=== PATIENT | female | born 1930 | race Caucasian/White ===

== ENCOUNTER 2017-12-20 09:33 | Emergency (ER) | payer OTHER ==
--- NOTE | 2017-12-20 10:46 | RAD REPORT ---
EXAM DESCRIPTION: RAD - Chest Pa And Lat (2 Views) - 12/20/2017 10:29 am CLINICAL HISTORY: Chest pain. COMPARISON: November 2016. FINDINGS: Elevation of the right hemidiaphragm is unchanged. The lungs appear clear of acute infiltrate. The heart is normal in size. Old humeral fractures are noted. 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 Considerable kyphosis is p resent
--- NOTE | 2017-12-20 10:46 | RAD REPORT ---
EXAM DESCRIPTION: RAD - Humerus Right - 12/20/2017 10:29 am CLINICAL HISTORY: Right arm pain status post fall FINDINGS: No acute fracture is seen. An old proximal humeral fracture is noted. The bones are osteo porotic
--- NOTE | 2017-12-20 10:54 | ER ---
Nurse's Notes [facility] Name: Alessia Coombs Age: 87 yrs Sex: Female : 1930 Arrival Date: 12/20/2017 Time: 09:36 Bed 18 Private MD: Anand Jennings H Diagnosis: Chest Wall Contusion Presentation: 12/20 09:51 Presenting complaint: Patient states: i fell 2 weeks ago at home, hurt my back and R hj shoulder, i feel good but i decided last night to come and have myself checked; denies htting head and LOC;. Transition of care: patient was not received from another setting of care. Onset of symptoms was December 20, 2017. Care prior to arrival: None. 09:51 Method Of Arrival: Ambulatory 09:51 Acuity: LAURYN 4 hj Triage Assessment: 09:54 General: Appears in no apparent distress. uncomfortable, Behavior is calm, cooperative, hj appropriate for age. Pain: Complains of pain in anterior aspect of right shoulder. EENT: No signs and/or symptoms were reported regarding the EENT system. Neuro: Level of Consciousness is awake, alert, obeys commands, Oriented to person, place, time, situation. Cardiovascular: Capillary refill < 3 seconds Patient's skin is warm and dry. Respiratory: Airway is patent Respiratory effort is even, unlabored, Respiratory pattern is regular, symmetrical. GI: No signs and/or symptoms were reported involving the gastrointestinal system. : No signs and/or symptoms were reported regarding the genitourinary system. Derm: No signs and/or symptoms reported regarding the dermatologic system. Musculoskeletal: Reports pain in anterior aspect of right shoulder R lower rib cage. Historical: - Allergies: 09:53 NKDA; hj - Home Meds: 09:53 acetaminophen-codeine 300-30 mg Oral tab 1 tab every 4 hours [Active]; Amitriptyline 20 hj mg, two tabs at night Oral [Active]; citalopram 40 mg tab 1 tab once daily [Active]; Clonazepam Oral as needed [Active]; - PMHx: 09:53 Anxiety; Depression; hj - PSHx: 09:53 Knee surgery; hj - Immunization history:: Adult Immunizations up to date. - Social history:: Smoking status: Patient/guardian denies using tobacco, Patient/guardian denies using alcohol. - Family history:: not pertinent. - Hospitalizations: : No recent hospitalization is reported. Screenin:55 Abuse screen: Denies threats or abuse. Denies injuries from another. Nutritional hj screening: No deficits noted. Tuberculosis screening: No symptoms or risk factors identified. Fall Risk Fall in past 12 months (25 points). Assessment: 09:56 Reassessment: see triage for assessment;. hj 10:55 Reassessment: for D/C; negative acute findings;. hj Vital Signs: 09:56 BP 157 / 80; Pulse 73; Resp 18; Temp 98.1(TE); Pulse Ox 98% on R/A; Weight 54.43 kg; hj Height 5 ft. 3 in. (160.02 cm); Pain 6/10; 10:59 BP 150 / 78; Pulse 72; Resp 18; Pulse Ox 100% on R/A; hj 09:56 Body Mass Index 21.26 (54.43 kg, 160.02 cm) hj ED Course: 09:36 Patient arrived in ED. rg4 09:37 Anand Jennings DO is Private Physician. rg4 09:40 Gustavo Antunez, RN is Primary Nurse. hj 09:45 Salvatore Oconnor MD is Attending Physician. rn 09:52 Triage completed. hj 09:55 Arm band placed on right wrist. hj 09:55 Patient has correct armband on for positive identification. Bed in low position. Call hj light in reach. Side rails up X2. 10:21 Urine Dipstick--Ancillary (enter results) Sent. mh5 10:26 X-ray completed. Patient tolerated procedure well. Patient moved back from radiology. jb2 10:26 XRAY Chest Pa And Lat (2 Views) In Process Unspecified. EDMS 10:26 XRAY Humerus RIGHT In Process Unspecified. EDMS 10:53 Anand Jennings DO is Referral Physician. rn 10:59 No provider procedures requiring assistance completed. Patient did not have IV access hj during this emergency room visit. Administered Medications: No medications were administered Outcome: 10:54 Discharge ordered by MD. rn 10:59 Discharged to home ambulatory. hj 10:59 Condition: stable 10:59 Discharge instructions given to patient, Instructed on discharge instructions, follow up and referral plans. Demonstrated understanding of instructions, follow-up care. 11:21 Patient left the ED. hj Signatures: Dispatcher [employer] EDLopez Mahan Roman, MD MD rn Joaquin, Henry, RN RN hj Garcia, Rubi rg Dedra Bravo [facility]
--- NOTE | 2017-12-20 10:54 | EDPHYS ---
Physician Documentation [facility] Name: Alessia Coombs Age: 87 yrs Sex: Female : 1930 Arrival Date: 12/20/2017 Time: 09:36 Bed 18 Private MD: Anand Jennings H ED Physician Salvatore Oconnor HPI: 12/20 09:52 This 87 yrs old Female presents to ER via Ambulatory with complaints of Fall rn Injury. 09:52 Details of fall: The patient fell from an upright position, while walking. Onset: The rn symptoms/episode began/occurred 2 week(s) ago. Associated injuries: The patient sustained injury to the chest. Severity of symptoms: At their worst the symptoms were mild, in the emergency department the symptoms are unchanged. The patient has experienced a previous episode. Reports fell 2 weeks ago, symptoms not better, has broken right shoulder in past, is hurting more in right chest wall, no sob, no fever, no abd pain. Not on anticoagulation.. Historical: - Allergies: 09:53 NKDA; hj - Home Meds: 09:53 acetaminophen-codeine 300-30 mg Oral tab 1 tab every 4 hours [Active]; Amitriptyline 20 hj mg, two tabs at night Oral [Active]; citalopram 40 mg tab 1 tab once daily [Active]; Clonazepam Oral as needed [Active]; - PMHx: 09:53 Anxiety; Depression; hj - PSHx: 09:53 Knee surgery; hj - Immunization history:: Adult Immunizations up to date. - Social history:: Smoking status: Patient/guardian denies using tobacco, Patient/guardian denies using alcohol. - Family history:: not pertinent. - Hospitalizations: : No recent hospitalization is reported. ROS: 09:52 Constitutional: Negative for fever, chills, and weight loss, Eyes: Negative for injury, rn pain, redness, and discharge, Neck: Negative for injury, pain, and swelling, Cardiovascular: Negative for palpitations, and edema, Respiratory: Negative for shortness of breath, cough, wheezing, and pleuritic chest pain, Abdomen/GI: Negative for abdominal pain, nausea, vomiting, diarrhea, and constipation, Back: Negative for injury and pain, MS/Extremity: Negative for deformity, Skin: Negative for injury, rash, and discoloration, Neuro: Negative for headache, weakness, numbness, tingling, and seizure. Exam: 09:58 Constitutional: This is a well developed, well nourished patient who is awake, alert, rn and in no acute distress. Head/Face: Normocephalic, atraumatic. Eyes: Pupils equal round and reactive to light, extra-ocular motions intact. Lids and lashes normal. Conjunctiva and sclera are non-icteric and not injected. Cornea within normal limits. Periorbital areas with no swelling, redness, or edema. Neck: Trachea midline, no thyromegaly or masses palpated, and no cervical lymphadenopathy. Supple, full range of motion without nuchal rigidity, or vertebral point tenderness. No Meningismus. Chest/axilla: Normal chest wall appearance and motion. Nontender with no deformity. No lesions are appreciated. Cardiovascular: Regular rate and rhythm with a normal S1 and S2. No gallops, murmurs, or rubs. Normal PMI, no JVD. No pulse deficits. Respiratory: Lungs have equal breath sounds bilaterally, clear to auscultation and percussion. No rales, rhonchi or wheezes noted. No increased work of breathing, no retractions or nasal flaring. Abdomen/GI: Soft, non-tender, with normal bowel sounds. No distension or tympany. No guarding or rebound. No evidence of tenderness throughout. MS/ Extremity: Pulses equal, no cyanosis. Neurovascular intact. Full, normal range of motion. Equal circumference. Neuro: Awake and alert, GCS 15, oriented to person, place, time, and situation. Cranial nerves II-XII grossly intact. Motor strength 5/5 in all extremities. Sensory grossly intact. Cerebellar exam normal. Normal gait. Vital Signs: 09:56 BP 157 / 80; Pulse 73; Resp 18; Temp 98.1(TE); Pulse Ox 98% on R/A; Weight 54.43 kg; hj Height 5 ft. 3 in. (160.02 cm); Pain 6/10; 10:59 BP 150 / 78; Pulse 72; Resp 18; Pulse Ox 100% on R/A; hj 09:56 Body Mass Index 21.26 (54.43 kg, 160.02 cm) MDM: 09:45 Patient medically screened. rn 10:53 Differential diagnosis: contusion, fracture, sprain, strain. Data reviewed: vital rn signs, nurses notes, radiologic studies, plain films, and as a result, I will discharge patient. Counseling: I had a detailed discussion with the patient and/or guardian regarding: the historical points, exam findings, and any diagnostic results supporting the discharge/admit diagnosis, radiology results, the need for outpatient follow up, to return to the emergency department if symptoms worsen or persist or if there are any questions or concerns that arise at home. Special discussion: I discussed with the patient/guardian in detail that at this point there is no indication for admission to the hospital. It is understood, however, that if the symptoms persist or worsen the patient needs to return immediately for re-evaluation. 12/20 10:00 Order name: Urine Dipstick--Ancillary (enter results) bd 12/20 09:52 Order name: XRAY Chest Pa And Lat (2 Views) rn 12/20 09:52 Order name: XRAY Humerus RIGHT; Complete Time: 10:53 rn Administered Medications: No medications were administered Disposition: 12/20/17 10:54 Discharged to Home. Impression: Chest Wall Contusion. - Condition is Stable. - Discharge Instructions: Contusion, Chest Contusion. - Medication Reconciliation Form, Thank You Letter, Antibiotic Education, Prescription Opioid Use form. - Follow up: Anand Jennings DO; When: As needed; Reason: Recheck today's complaints, Re-evaluation by your physician. - Problem is new. - Symptoms have improved. Signatures: Dispatcher [employer] EDMS Salvatore Oconnor MD MD rn Joaquin, Henry, RN RN Corrections: (The following items were deleted from the chart) 09:58 09:52 Constitutional: Negative for fever, chills, and weight loss, Eyes: Negative for rn injury, pain, redness, and discharge, Neck: Negative for injury, pain, and swelling, Cardiovascular: Negative for palpitations, and edema, Respiratory: Negative for shortness of breath, cough, wheezing, and pleuritic chest pain, Abdomen/GI: Negative for abdominal pain, nausea, vomiting, diarrhea, and constipation, Back: Negative for injury and pain, MS/Extremity: Negative for injury and deformity, Skin: Negative for injury, rash, and discoloration, Neuro: Negative for headache, weakness, numbness, tingling, and seizure, rn
[2017-12-20 11:21] LABS: Urine Blood NEGATIVE (NEG); Urine Glucose NEGATIVE (NEG); Urine Protein NEGATIVE (NEG); Urine Specific Gravity 1.015 (1.005-1.030)
[2017-12-20 11:25] VITALS: TEMP 98.1
[2017-12-20 11:26] VITALS: BP 150/78; O2SAT 100
== END 2017-12-20 11:21 | disposition home or self-care (01) ==
LOC: ER 09:33
DX: W18.30XA Fall on same level, unspecified, initial encounter; Y93.01 Activity, walking, marching and hiking; F32.9 Major depressive disorder, single episode, unspecified; Y92.009 Unspecified place in unspecified non-institutional (private) residence as the place of occurrence of the external cause; S20.211A Contusion of right front wall of thorax, initial encounter; F41.9 Anxiety disorder, unspecified
CPT/HCPCS: 71046; 81003; 99283

== ENCOUNTER 2018-03-06 10:01 | Emergency (ER) | payer OTHER ==
--- NOTE | 2018-03-06 10:28 | ER ---
Nurse's Notes [facility] Name: Alessia Coombs Age: 87 yrs Sex: Female : 1930 Arrival Date: 03/06/2018 Time: 10:06 Bed 15 Private MD: Anand Jennings H Diagnosis: Cellulitis of right upper limb-hand Presentation: 03/06 10:10 Presenting complaint: Patient states: Right hand pain and swelling x 2 days Pt reports hb she woke yesterday morning with her hand stinging, and today it is painful and itches. Transition of care: patient was not received from another setting of care. Onset of symptoms was March 05, 2018. Risk Assessment: Do you want to hurt yourself or someone else? Patient reports no desire to harm self or others. Initial Sepsis Screen: Does the patient meet any 2 criteria? No. Patient's initial sepsis screen is negative. Does the patient have a suspected source of infection? No. Patient's initial sepsis screen is negative. Care prior to arrival: None. 10:10 Method Of Arrival: Ambulatory hb 10:10 Acuity: LAURYN 4 hb Historical: - Allergies: 10:12 NKDA; hb - Home Meds: 10:12 acetaminophen-codeine 300-30 mg Oral tab 1 tab every 4 hours [Active]; Amitriptyline 20 hb mg, two tabs at night Oral [Active]; citalopram 40 mg tab 1 tab once daily [Active]; Clonazepam Oral as needed [Active]; - PMHx: 10:12 Anxiety; Depression; hb - PSHx: 10:12 Knee surgery; hb - Immunization history:: Adult Immunizations up to date. - Social history:: Smoking status: Patient/guardian denies using tobacco. - Ebola Screening: : No symptoms or risks identified at this time. Screenin:30 Abuse screen: Denies threats or abuse. Denies injuries from another. Nutritional ph screening: No deficits noted. Tuberculosis screening: No symptoms or risk factors identified. Fall Risk None identified. Assessment: 10:30 General: Appears in no apparent distress. comfortable, slender, well groomed, Behavior ph is calm, cooperative, appropriate for age, Denies fever. Pain: Complains of pain in right hand. Neuro: Level of Consciousness is awake, alert, obeys commands, Oriented to person, place, time, situation. Cardiovascular: Capillary refill < 3 seconds Patient's skin is warm and dry. Respiratory: Airway is patent Respiratory effort is even, unlabored, Respiratory pattern is regular, symmetrical. GI: No signs and/or symptoms were reported involving the gastrointestinal system. Derm: Skin is healthy with good turgor, Skin is pink, warm \T\ dry. redness and swelling noted to R hand. Musculoskeletal: Circulation, motion, and sensation intact. Range of motion: intact in all extremities, Swelling present in lateral aspect of right hand. 11:00 Reassessment: Patient appears in no apparent distress at this time. Awaiting 15 min ph shot time before d/c. Vital Signs: 10:11 BP 138 / 87; Pulse 80; Resp 16; Temp 97.9; Pulse Ox 99% on R/A; Pain 5/10; hb ED Course: 10:06 Patient arrived in ED. sb2 10:06 Anand Jennings DO is Private Physician. sb2 10:11 Triage completed. hb 10:12 Arm band placed on right wrist. hb 10:15 Rommel Villalobos NP is PHCP. pm1 10:15 Micah Jarvis MD is Attending Physician. pm1 10:26 Anand Jennings DO is Referral Physician. pm1 10:30 Patient has correct armband on for positive identification. Bed in low position. Call ph light in reach. Side rails up X 1. Pulse ox on. NIBP on. 10:31 Rocio Gabriel, RN is Primary Nurse. ph 11:10 No provider procedures requiring assistance completed. Patient did not have IV access ph during this emergency room visit. Administered Medications: 10:47 Drug: Tetanus-Diphtheria Toxoid Adult 0.5 ml {[employer]: Sara Campbell. Exp: ph 05/25/2020. Lot #: [id number]. } Route: IM; Site: left deltoid; 11:10 Follow up: Response: No adverse reaction ph Outcome: 10:27 Discharge ordered by . pm1 11:10 Patient left the ED. ph 11:10 Discharged to home ambulatory, with family. ph 11:10 Condition: good 11:10 Discharge instructions given to patient, Instructed on discharge instructions, follow up and referral plans. medication usage, Demonstrated understanding of instructions, follow-up care, medications, Prescriptions given X 1. Signatures: Rocio Gabriel RN RN Rommel Nath, TREE WEIGHT REDUCTION SPECIALIST pm1 Codie Flowers RN RN Hillary Harden sb2
--- NOTE | 2018-03-06 10:28 | EDPHYS ---
Physician Documentation [facility] Name: Alessia Coombs Age: 87 yrs Sex: Female : 1930 Arrival Date: 03/06/2018 Time: 10:06 Bed 15 Private MD: Anand Jennings H ED Physician Micah Jarvis HPI: 03/06 10:25 This 87 yrs old Female presents to ER via Ambulatory with complaints of pm1 Insect Bite. 10:25 The patient's rash thought to be caused by insect bites. The rash is located on the pm1 right hand. The rash can be described as raised. Onset: The symptoms/episode began/occurred yesterday. Associated signs and symptoms: Pertinent positives: itching, Pain Pertinent negatives: fever, swelling of lips, swelling of throat, swelling of tongue, wheezing. Severity of symptoms: in the emergency department the symptoms are worse. Treatment given at home: none. The patient has not experienced similar symptoms in the past. The patient has not recently seen a physician, the patient's primary care provider is Dr. Jennings. Patient woke up yesterday morning with swelling to right hand. Swelling is present over right 2nd and 3rd knuckle. Patient thinks a spider could have bite her during the night. Historical: - Allergies: 10:12 NKDA; hb - Home Meds: 10:12 acetaminophen-codeine 300-30 mg Oral tab 1 tab every 4 hours [Active]; Amitriptyline 20 hb mg, two tabs at night Oral [Active]; citalopram 40 mg tab 1 tab once daily [Active]; Clonazepam Oral as needed [Active]; - PMHx: 10:12 Anxiety; Depression; hb - PSHx: 10:12 Knee surgery; hb - Immunization history:: Adult Immunizations up to date. - Social history:: Smoking status: Patient/guardian denies using tobacco. - Ebola Screening: : No symptoms or risks identified at this time. ROS: 10:25 Constitutional: Negative for fever, chills, and weight loss, Eyes: Negative for injury, pm1 pain, redness, and discharge, ENT: Negative for injury, pain, and discharge, Neck: Negative for injury, pain, and swelling, Cardiovascular: Negative for chest pain, palpitations, and edema, Respiratory: Negative for shortness of breath, cough, wheezing, and pleuritic chest pain, Abdomen/GI: Negative for abdominal pain, nausea, vomiting, diarrhea, and constipation, Back: Negative for injury and pain, MS/Extremity: Negative for injury and deformity. 10:25 Neuro: Negative for headache, weakness, numbness, tingling, and seizure. 10:25 Skin: Positive for rash, swelling, of the lateral aspect of right hand. Exam: 10:25 Constitutional: This is a well developed, well nourished patient who is awake, alert, pm1 and in no acute distress. Head/Face: Normocephalic, atraumatic. Neck: Trachea midline, no thyromegaly or masses palpated, and no cervical lymphadenopathy. Supple, full range of motion without nuchal rigidity, or vertebral point tenderness. No Meningismus. Chest/axilla: Normal chest wall appearance and motion. Nontender with no deformity. No lesions are appreciated. Cardiovascular: Regular rate and rhythm with a normal S1 and S2. No gallops, murmurs, or rubs. Normal PMI, no JVD. No pulse deficits. Respiratory: Lungs have equal breath sounds bilaterally, clear to auscultation and percussion. No rales, rhonchi or wheezes noted. No increased work of breathing, no retractions or nasal flaring. Back: No spinal tenderness. No costovertebral tenderness. Full range of motion. 10:25 Skin: Appearance: normal except for affected area, on the lateral aspect of right hand, mild swelling and redness. Vital Signs: 10:11 BP 138 / 87; Pulse 80; Resp 16; Temp 97.9; Pulse Ox 99% on R/A; Pain 5/10; hb MDM: 10:16 Patient medically screened. [facility] 10:25 Data reviewed: vital signs. Data interpreted: Pulse oximetry: on room air is 99 %. pm1 Interpretation: normal. Counseling: I had a detailed discussion with the patient and/or guardian regarding: the historical points, exam findings, and any diagnostic results supporting the discharge/admit diagnosis, the need for outpatient follow up, a family practitioner, to return to the emergency department if symptoms worsen or persist or if there are any questions or concerns that arise at home. Administered Medications: 10:47 Drug: Tetanus-Diphtheria Toxoid Adult 0.5 ml {[employer]: [employer]. Exp: ph 05/25/2020. Lot #: [id number]. } Route: IM; Site: left deltoid; 11:10 Follow up: Response: No adverse reaction ph Disposition: 03/07 10:47 Co-signature as Attending Physician, Micah Jarvis MD I agree with the assessment and [facility] plan of care. Disposition: 03/06/18 10:27 Discharged to Home. Impression: Cellulitis of right upper limb - hand. - Condition is Stable. - Discharge Instructions: Insect Bite, Cellulitis. - Prescriptions for Bactrim DS 800- 160 mg Oral Tablet - take 1 tablet by ORAL route every 12 hours for 10 days; 20 tablet. - Medication Reconciliation Form, Thank You Letter, Antibiotic Education form. - Follow up: Anand Jennings DO; When: 2 - 3 days; Reason: Recheck today's complaints, Continuance of care, Re-evaluation by your physician. Follow up: Emergency Department; When: As needed; Reason: Worsening of condition. - Problem is new. - Symptoms have improved. Signatures: Micah Jarvis MD MD cha Hall, Patricia, RN RN Rommel Villalobos, LITIGATION PARALEGAL LITIGATION PARALEGAL pm1 Codie Flowers RN RN Corrections: (The following items were deleted from the chart) 03/06 11:10 10:27 03/06/2018 10:27 Discharged to Home. Impression: Cellulitis of right upper limb - ph hand. Condition is Stable. Forms are Medication Reconciliation Form, Thank You Letter, Antibiotic Education, Prescription Opioid Use. Follow up: Anand Jennings; When: 2 - 3 days; Reason: Recheck today's complaints, Continuance of care, Re-evaluation by your physician. Follow up: Emergency Department; When: As needed; Reason: Worsening of condition. Problem is new. Symptoms have improved. pm1
[2018-03-06] MEDS ORDERED: TETANUS & DIPHTHERIA TOX,ADULT 0.5 ML VIAL ONE (10:43)
[2018-03-06 11:26] VITALS: BP 138/87; TEMP 97.9; O2SAT 99
== END 2018-03-06 11:10 | disposition home or self-care (01) ==
LOC: ER 10:01
DX: L03.113 Cellulitis of right upper limb (principal); F41.9 Anxiety disorder, unspecified; F32.9 Major depressive disorder, single episode, unspecified; Z23 Encounter for immunization
CPT/HCPCS: 90714; 99283

== ENCOUNTER 2019-01-31 14:02 | Emergency (ER) | payer OTHER ==
--- OUTSIDE RECORDS SUMMARY | 2019-01-31 14:06 | XMS REPORT | Clinical Summary ---
:1930 Author Organization [facility] Address [address] [place] [id number] Care Team Providers Name Role Phone Cole Jennings Primary Care Provider Allergies No Known Allergies Medications Not on file Active Problems Problem Noted Date ICH (intracerebral hemorrhage) 08/26/2016 Acute encephalopathy 08/26/2016 Orthostatic hypotension 08/26/2016 Social History Tobacco Use Types Packs/Day Years Used Date Never Smoker Alcohol Use Drinks/Week oz/Week Comments No Sex Assigned at Date Recorded Not on file Job Start Date Occupation Industry Not on file Not on file Not on file Travel History Travel Start Travel End No recent travel history available. Last Filed Vital Signs Not on file Plan of Treatment Not on file Results Not on fileafter 01/30/2018 Insurance Payer Benefit Plan / Group Subscriber ID Type Phone Address MEDICARE MEDICARE A B xxxxxxxxxx Medicare ([place]) [place] [address] Advance Directives For more information, please contact:[facility] [address] [phone] Code Status Date Activated Date Inactivated Comments Full Code 08/26/2016 12:31 AM 08/26/2016 5:56 PM This code status was determined by: Patient
[2019-01-31 15:05] LABS: Protime INR 1.08
[2019-01-31 15:14] LABS: Absolute Lymphocytes (CBC) 1.7 K/uL (0.7-4.9); Absolute Monocytes 0.4 K/uL (0.1-1.3); Absolute Neutrophil 2.8 K/uL (1.8-8.0); Basophils % 0.5 % (0-1.3); Eosinophils % 2.2 % (0-4.4); Hematocrit 32.4 % (36.0-45.0); Lymphocytes % 34.1 % (15.3-44.8); MPV 10.6 fL (7.6-11.3); Monocytes % 8.3 % (3.3-12.3)
--- NOTE | 2019-01-31 15:23 | RAD REPORT ---
EXAM DESCRIPTION: RAD - Chest Single View - 01/31/2019 3:02 pm CLINICAL HISTORY: Weakness, dizziness, shortness of breath, chest pain COMPARISON: November 2017 TECHNIQUE: AP portable chest image was obtained 1458 hour . 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 Pronounced right hemidiaphragm elevation and right hemit horax volume reduction are again noted. Calcified density at the right apex has not changed. Heart si ze is stable. Upper lobe vasculature within normal limits. No measurable pleural effusion and no pneu mothorax. No acute bony abnormality seen. No acute aortic findings suspected. IMPRESSION: Fibrotic lung pattern similar to comparison. No acute findings.
[2019-01-31 15:26] LABS: ALT/SGPT 22 U/L (12-78); AST/SGOT 22 U/L (15-37); Albumin 3.5 g/dL (3.4-5.0); Alkaline Phosphatase 85 U/L (45-117); BUN Blood Urea Nitrogen 22 mg/dL (7-18); Bicarbonate 31 mmol/L (21-32); Bilirubin Direct < 0.1 mg/dL (0-0.2); Bilirubin Total 0.3 mg/dL (0.2-1.0); Glucose Level 101 mg/dL (74-106); Magnesium 2.3 mg/dL (1.8-2.4); NT PRO-BNP 268 pg/mL (<450); Potassium 4.3 mmol/L (3.5-5.1); Protein, Total 6.7 g/dL (6.4-8.2); Sodium Level 141 mmol/L (136-145); Troponin (Emerg Dept Use Only) < 0.02 ng/mL (0.0-0.045)
--- NOTE | 2019-01-31 15:51 | RAD REPORT ---
EXAM DESCRIPTION: CT - Head Brain Wo Cont - 01/31/2019 3:43 pm CLINICAL HISTORY: Dizziness, syncope COMPARISON: None. TECHNIQUE: Axial 5 mm thick images of the head were obtained without IV contrast. All CT scans are performed using dose optimization technique as appropriate and may include automated exposure control or mA/KV adjustment according to patient size. FINDINGS: No intracranial hemorrhage, mass, edema or shift of mid-line structures. No acute infarcti on changes seen. No cortical edema or sulcal effacement. Patient has prominent atrophy prominent homicide investigator henrietta ischemic change. Ventricles are in proportion to the volume loss. Arterial and physiologic calcif ications are present. Mastoid air cells and visualized portions of the paranasal sinuses are clear. No acute bony findings. IMPRESSION: Prominent atrophy and chronic ischemic change with no acute intracranial finding. Chronic ischemic changes can mask nonhemorrhagic acute infarction. MR brain followup can be obtained if there is ongoing concern for acute ischemia.
--- NOTE | 2019-01-31 15:55 | EKG ---
Test Date: 2019-01-31 Test Time: 14:18:17 Nitrator Operator: JEIMY MEASUREMENT RESULTS: Intervals: Rate: 72 LA: 196 QRSD: 90 QT: 404 QTc: 442 [place]: P: 59 LA: 196 QRS: -8 T: 41 INTERPRETIVE STATEMENTS: Normal sinus rhythm Septal infarct, age undetermined Abnormal ECG Compared to ECG 12/01/2016 11:28:36 First degree AV block no longer present Myocardial infarct finding still present Electronically Signed On 01-31-19 15:54:45 CDT by Shahab Buck
--- NOTE | 2019-01-31 16:48 | ER ---
Nurse's Notes [facility] Name: Alessia Coombs Age: 88 yrs Sex: Female : 1930 Arrival Date: 01/31/2019 Time: 14:05 Bed 4 Private MD: Diagnosis: Syncope and collapse Presentation: 01/31 14:02 Presenting complaint: EMS states: dizziness and lightheadedness for the past few days. sv Pt reports she has been out of her Clonazepam over the last 2 days. Vitals WNL, SR 80-105 BS-117, orthostatic vitals negative. Transition of care: patient was not received from another setting of care. Onset of symptoms was January 29, 2019. Risk Assessment: Do you want to hurt yourself or someone else? Patient reports no desire to harm self or others. Initial Sepsis Screen: Does the patient meet any 2 criteria? No. Patient's initial sepsis screen is negative. Does the patient have a suspected source of infection? No. Patient's initial sepsis screen is negative. Care prior to arrival: IV initiated. 20 GA, in the right forearm, Glucose check: 117. 14:02 Method Of Arrival: EMS: [facility] sv 14:02 Acuity: LAURYN 3 sv Triage Assessment: 14:05 General: Appears in no apparent distress. comfortable, well developed, Behavior is sv calm, cooperative, appropriate for age. Pain: Denies pain. Neuro: Level of Consciousness is awake, alert, obeys commands, Oriented to person, place, time, situation, Moves all extremities. Full function Speech is normal, Facial symmetry appears normal, Reports dizziness. Respiratory: Airway is patent Respiratory effort is even, unlabored, Respiratory pattern is regular, symmetrical. Derm: Skin is intact, Skin is dry, Skin is normal, Skin temperature is warm. Musculoskeletal: Range of motion: intact in all extremities. Historical: - Allergies: 14:10 NKDA; sv - PMHx: 14:10 Anxiety; Chronic pain; Depression; sv - Immunization history:: Adult Immunizations up to date. - Social history:: Smoking status: Patient/guardian denies using tobacco, Patient/guardian denies using alcohol. - Ebola Screening: : No symptoms or risks identified at this time. Screenin:11 Abuse screen: Denies threats or abuse. Denies injuries from another. Nutritional sv screening: No deficits noted. Tuberculosis screening: No symptoms or risk factors identified. Fall Risk None identified. Assessment: 14:12 Reassessment: Patient appears in no apparent distress at this time. No changes from sv previously documented assessment. See triage assessment. 15:00 Reassessment: Patient appears in no apparent distress at this time. No changes from sv previously documented assessment. Patient and/or family updated on plan of care and expected duration. Pain level reassessed. Patient is alert, oriented x 3, equal unlabored respirations, skin warm/dry/pink. Pt given a food tray. 16:00 Reassessment: Patient appears in no apparent distress at this time. No changes from ch previously documented assessment. Patient and/or family updated on plan of care and expected duration. Pain level reassessed. Patient is alert, oriented x 3, equal unlabored respirations, skin warm/dry/pink. Patient denies pain at this time. Patient states feeling better. Patient states symptoms have improved. 17:17 Reassessment: Patient appears in no apparent distress at this time. pt assisted to bsc, ch tolerated well. pt states she wants to sit in chair. AWAITING PT RIDE PRIOR TO DISCHARGE. PT STATES SHE FEELS BETTER. Vital Signs: 14:07 BP 141 / 69; Pulse 78; Resp 18; Temp 97.9(O); Pulse Ox 96% ; Weight 52.62 kg; Height 5 sv ft. 2 in. (157.48 cm); Pain 0/10; 14:50 BP 125 / 61; Pulse 69; Resp 20; Pulse Ox 96% ; sv 16:05 BP 137 / 67; Pulse 95; Resp 15; Pulse Ox 98% ; sv 17:18 BP 128 / 70; Pulse 80; Resp 16; Temp 98.4; Pulse Ox 99% on R/A; Pain 0/10; ch 14:07 Body Mass Index 21.22 (52.62 kg, 157.48 cm) sv ED Course: 14:02 Maintain EMS IV. Dressing intact. Site clean \T\ dry. Gauge \T\ site: 20 G R FA. sv 14:05 Patient arrived in ED. sv 14:05 Maxine Gtz RN is Primary Nurse. sv 14:07 Triage completed. sv 14:10 Arm band placed on. sv 14:11 Patient has correct armband on for positive identification. Placed in gown. Bed in low sv position. Call light in reach. Side rails up X2. teletypesetter monitor on. Pulse ox on. NIBP on. Door closed. Head of bed elevated. 14:18 EKG done, by residential appliance repair technician. reviewed by Buck Gomez MD. at1 14:42 Buck Gomez MD is Attending Physician. kdr 14:44 Initial lab(s) drawn, by me, sent to lab. jb1 14:58 ED physician to see patient. sv 14:59 XRAY Chest (1 view) In Process Unspecified. EDMS 15:17 Diet: Patient given a regular meal tray. bd 15:44 CT Head Brain wo Cont In Process Unspecified. EDMS 15:[address] from [address]. sv Administered Medications: No medications were administered Point of Care Testing: Blood Glucose: 14:15 Blood Glucose: 117 mg/dL; ch Ranges: Outcome: 16:48 Discharge ordered by . kdr 17:55 Patient left the ED. sv Signatures: Dispatcher [employer] EDCoy Rachel jb1 Bárbara Vazquez bd Roberta Campa, RN RN Maxine Gtz, RN RN Buck Gomez MD MD kdr Tea Hidalgo, video editing internship EKG Tat1 Corrections: (The following items were deleted from the chart) 14:11 14:02 Presenting complaint: EMS states: dizziness and lightheadedness for the past few sv days. Pt reports she has been out of her Clonazepam over the last 2 days. sv
--- NOTE | 2019-01-31 16:48 | EDPHYS ---
Physician Documentation [facility] Name: Alessia Coombs Age: 88 yrs Sex: Female : 1930 Arrival Date: 01/31/2019 Time: 14:05 Bed 4 Private MD: ED Physician Buck Gomez HPI: 01/31 15:21 This 88 yrs old Female presents to ER via EMS with complaints of Dizziness. kdr 15:21 This 88 yrs old Female presents to ER via EMS with complaints of Syncope. kdr 15:22 The patient has experienced syncope, became unresponsive, collapsed, lost kdr consciousness. Onset: The symptoms/episode began/occurred acutely, just prior to arrival. Duration: The patient has had multiple episodes, that last an unknown period of time. Context: the episode(s) was witnessed, by no one, occurred at home, occurred while the patient was sitting, Just prior to the episode the patient experienced no apparent symptoms. Associated injury: The patient did not suffer any apparent associated injury. Associated signs and symptoms: The patient has no apparent associated signs or symptoms. Current symptoms: Currently, the patient is not experiencing any symptoms. The patient has experienced similar episodes in the past, Has been ongoing for about a month. The patient has not recently seen a physician. Historical: - Allergies: 14:10 NKDA; sv - PMHx: 14:10 Anxiety; Chronic pain; Depression; sv - Immunization history:: Adult Immunizations up to date. - Social history:: Smoking status: Patient/guardian denies using tobacco, Patient/guardian denies using alcohol. - Ebola Screening: : No symptoms or risks identified at this time. ROS: 15:22 Constitutional: Negative for fever, chills, and weight loss, Eyes: Negative for injury, kdr pain, redness, and discharge, ENT: Negative for injury, pain, and discharge, Neck: Negative for injury, pain, and swelling, Cardiovascular: Negative for chest pain, palpitations, and edema, Respiratory: Negative for shortness of breath, cough, wheezing, and pleuritic chest pain, Abdomen/GI: Negative for abdominal pain, nausea, vomiting, diarrhea, and constipation, Back: Negative for injury and pain, : Negative for injury, bleeding, discharge, and swelling, MS/Extremity: Negative for injury and deformity, Skin: Negative for injury, rash, and discoloration, Psych: Negative for depression, anxiety, suicide ideation, homicidal ideation, and hallucinations, Allergy/Immunology: Negative for hives, rash, and allergies, Endocrine: Negative for neck swelling, polydipsia, polyuria, polyphagia, and marked weight changes, Hematologic/Lymphatic: Negative for swollen nodes, abnormal bleeding, and unusual bruising. 15:22 Neuro: Positive for loss of consciousness, syncope. Exam: 15:22 Constitutional: This is a well developed, well nourished patient who is awake, alert, kdr and in no acute distress. Head/Face: Normocephalic, atraumatic. Eyes: Pupils equal round and reactive to light, extra-ocular motions intact. Lids and lashes normal. Conjunctiva and sclera are non-icteric and not injected. Cornea within normal limits. Periorbital areas with no swelling, redness, or edema. ENT: Nares patent. No nasal discharge, no septal abnormalities noted. Tympanic membranes are normal and external auditory canals are clear. Oropharynx with no redness, swelling, or masses, exudates, or evidence of obstruction, uvula midline. Mucous membranes moist. Neck: Trachea midline, no thyromegaly or masses palpated, and no cervical lymphadenopathy. Supple, full range of motion without nuchal rigidity, or vertebral point tenderness. No Meningismus. Chest/axilla: Normal chest wall appearance and motion. Nontender with no deformity. No lesions are appreciated. Cardiovascular: Regular rate and rhythm with a normal S1 and S2. No gallops, murmurs, or rubs. Normal PMI, no JVD. No pulse deficits. Respiratory: Lungs have equal breath sounds bilaterally, clear to auscultation and percussion. No rales, rhonchi or wheezes noted. No increased work of breathing, no retractions or nasal flaring. Abdomen/GI: Soft, non-tender, with normal bowel sounds. No distension or tympany. No guarding or rebound. No evidence of tenderness throughout. Back: No spinal tenderness. No costovertebral tenderness. Full range of motion. Skin: Warm, dry with normal turgor. Normal color with no rashes, no lesions, and no evidence of cellulitis. MS/ Extremity: Pulses equal, no cyanosis. Neurovascular intact. Full, normal range of motion. Neuro: Awake and alert, GCS 15, oriented to person, place, time, and situation. Cranial nerves II-XII grossly intact. Motor strength 5/5 in all extremities. Sensory grossly intact. Cerebellar exam normal. Normal gait. Psych: Awake, alert, with orientation to person, place and time. Behavior, mood, and affect are within normal limits. Vital Signs: 14:07 BP 141 / 69; Pulse 78; Resp 18; Temp 97.9(O); Pulse Ox 96% ; Weight 52.62 kg; Height 5 sv ft. 2 in. (157.48 cm); Pain 0/10; 14:50 BP 125 / 61; Pulse 69; Resp 20; Pulse Ox 96% ; sv 16:05 BP 137 / 67; Pulse 95; Resp 15; Pulse Ox 98% ; sv 17:18 BP 128 / 70; Pulse 80; Resp 16; Temp 98.4; Pulse Ox 99% on R/A; Pain 0/10; ch 14:07 Body Mass Index 21.22 (52.62 kg, 157.48 cm) sv MDM: 16:48 Patient medically screened. kdr 02/01 07:11 Data reviewed: vital signs, nurses notes, old medical records. Counseling: I had a kdr detailed discussion with the patient and/or guardian regarding: the historical points, exam findings, and any diagnostic results supporting the discharge/admit diagnosis, lab results, the need for outpatient follow up. 01/31 14:16 Order name: Glucose, Ancillary Testing; Complete Time: 16:47 EDMS 01/31 14:32 Order name: Basic Metabolic Panel; Complete Time: 16:47 sv 01/31 14:32 Order name: CBC with Diff; Complete Time: 16:47 sv 01/31 14:32 Order name: LFT's; Complete Time: 16:47 sv 01/31 14:32 Order name: Magnesium; Complete Time: 16:47 sv 01/31 14:32 Order name: NT PRO-BNP; Complete Time: 16:47 sv 01/31 14:32 Order name: PT-INR; Complete Time: 16:47 sv 01/31 14:32 Order name: Troponin (emerg Dept Use Only); Complete Time: 16:47 sv 01/31 14:32 Order name: XRAY Chest (1 view); Complete Time: 16:47 sv 01/31 14:32 Order name: EKG; Complete Time: 14:35 sv 01/31 14:32 Order name: Cardiac monitoring; Complete Time: 14:34 sv 01/31 14:32 Order name: EKG - Nurse/Tech; Complete Time: 14:45 sv 01/31 15:00 Order name: Diet Regular; Complete Time: 15:01 bd 01/31 15:21 Order name: CT Head Brain wo Cont; Complete Time: 16:47 kdr 01/31 14:32 Order name: IV Saline Lock; Complete Time: 14:45 sv 01/31 14:32 Order name: Labs collected and sent; Complete Time: 14:45 sv 01/31 14:32 Order name: O2 Per Protocol; Complete Time: 14:34 sv 01/31 14:32 Order name: O2 Sat Monitoring; Complete Time: 14:34 sv Administered Medications: No medications were administered Point of Care Testing: Blood Glucose: 01/31 14:15 Blood Glucose: 117 mg/dL; Ranges: Critical Glucose Levels:Adult <50 mg/dl or >400 mg/dl <40 mg/dl or >180 mg/dl Disposition: 01/31/19 16:48 Discharged to Home. Impression: Syncope and collapse. - Condition is Stable. - Discharge Instructions: Syncope, [id number]. - Medication Reconciliation Form, Thank You Letter form. - Follow up: Private Physician; When: 2 - 3 days; Reason: If symptoms return, Further diagnostic work-up, Recheck today's complaints, Continuance of care, Re-evaluation by your physician. - Problem is an ongoing problem. - Symptoms are resolved. Signatures: Dispatcher [employer] Maxine Cummings RN RN sv Rittger, Kevin, MD MD kdr Corrections: (The following items were deleted from the chart) 17:55 16:48 01/31/2019 16:48 Discharged to Home. Impression: Syncope and collapse. Condition sv is Stable. Forms are Medication Reconciliation Form, Thank You Letter, Antibiotic Education, Prescription Opioid Use. Follow up: Private Physician; When: 2 - 3 days; Reason: If symptoms return, Further diagnostic work-up, Recheck today's complaints, Continuance of care, Re-evaluation by your physician. Problem is an ongoing problem. Symptoms are resolved. kdr
[2019-01-31 18:08] VITALS: BP 128/70; TEMP 98.4; O2SAT 99
[2019-01-31] MEDS ORDERED: FENTANYL CITR 100 MCG/2 ML ONE (18:17)
== END 2019-01-31 17:55 | disposition home or self-care (01) ==
LOC: ER 14:02
DX: R55 Syncope and collapse (principal)
CPT/HCPCS: 93005; 85025; 80048; 36415; 83735; 85610; 82962; 80076; 84484; 83880; 70450; 71045; 99285; J3010

== ENCOUNTER 2019-04-10 10:30 | Emergency (ER) | payer OTHER ==
--- OUTSIDE RECORDS SUMMARY | 2019-04-10 10:39 | XMS REPORT | Clinical Summary ---
:1930 Author Organization [email or web address] Address [address] [place] [id number] Care Team Providers Name Role Phone Cole [...] Not on file Results Not on fileafter 04/09/2018 Insurance Payer Benefit Plan / Group Subscriber ID Type Phone Address MEDICARE MEDICARE A B xxxxxxxxxx Medicare ([place]) [place] [address] Advance Directives For more information, please contact:[email or web address] [address] [phone] Code Status Date Activated Date Inactivated Comments Full Code 08/26/2016 12:31 AM 08/26/2016 5:56 PM This code status was determined by: Patient
[2019-04-10] MEDS ORDERED: NA CHLORIDE 0.9% 1,000 ML ONE (11:23)
--- NOTE | 2019-04-10 11:34 | RAD REPORT ---
EXAM DESCRIPTION: RAD - Chest Single View - 04/10/2019 11:25 am CLINICAL HISTORY: Cough, shortness of breath COMPARISON: January 31, 2019 TECHNIQUE: AP portable chest image was obtained 1112 hours . 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 There is pronounced right hemidiaphragm elevation simila r to comparison. Focal pleural scarring and calcification in the right apex noted and stable. Fibroti c lung pattern is not clearly different and there is no superimposed acute infiltrate or mass. Heart and vasculature are normal. No measurable pleural effusion and no pneumothorax. No acute bony abnorma lity seen. Bony degenerative changes are present and there is remodeling from old proximal right juancarlos kashmir fracture. No acute aortic findings suspected. IMPRESSION: Chronic interstitial lung disease similar to comparison. No acute chest finding seen.
--- NOTE | 2019-04-10 11:38 | RAD REPORT ---
EXAM DESCRIPTION: CT - Head Brain Wo Cont - 04/10/2019 11:29 am CLINICAL HISTORY: SYNCOPE Headache, drowsiness COMPARISON: Head Brain Wo Cont dated 01/31/2019 TECHNIQUE: All CT scans are performed using dose optimization technique as appropriate and may inclu de automated exposure control or mA/KV adjustment according to patient size. FINDINGS: No intracranial hemorrhage, hydrocephalus or extra-axial fluid collection.Mild generalized brain atrophy is present with moderate periventricular and deep white matter chronic microvascular i schemic changes.No areas of brain edema or evidence of midline shift. The paranasal sinuses and mastoids are clear. The calvarium is intact. IMPRESSION: No acute intracranial abnormality.
[2019-04-10 11:44] LABS: Absolute Lymphocytes (CBC) 1.2 K/uL (0.7-4.9); Basophils % 0.5 % (0-1.3); Eosinophils % 1.9 % (0-4.4); Hematocrit 35.8 % (36.0-45.0); Lymphocytes % 27.9 % (15.3-44.8); MPV 11.1 fL (7.6-11.3); Monocytes % 8.8 % (3.3-12.3); RBC Red Blood Cell Count 3.65 M/uL (3.86-4.86)
[2019-04-10 11:48] LABS: Protime INR 1.09
[2019-04-10 11:56] LABS: ALT/SGPT 20 U/L (12-78); AST/SGOT 18 U/L (15-37); Albumin 3.6 g/dL (3.4-5.0); Alkaline Phosphatase 80 U/L (45-117); BUN Blood Urea Nitrogen 10 mg/dL (7-18); Bicarbonate 31 mmol/L (21-32); Bilirubin Direct 0.1 mg/dL (0-0.2); Bilirubin Total 0.4 mg/dL (0.2-1.0); Glucose Level 94 mg/dL (74-106); Magnesium 2.3 mg/dL (1.8-2.4); NT PRO-BNP 206 pg/mL (<450); Protein, Total 7.3 g/dL (6.4-8.2); Sodium Level 143 mmol/L (136-145); Troponin (Emerg Dept Use Only) < 0.02 ng/mL (0.0-0.045)
--- NOTE | 2019-04-10 12:21 | EDPHYS ---
Physician Documentation [facility] Name: Alessia Coombs Age: 88 yrs Sex: Female : 1930 Arrival Date: 04/10/2019 Time: 10:31 Bed 25 Private MD: ED Physician Micah Jarvis HPI: 04/10 12:11 This 88 yrs old Female presents to ER via EMS with complaints of Syncope. liz 12:11 The patient has experienced syncope. Onset: The symptoms/episode began/occurred just liz prior to arrival. Duration: The patient has had multiple episodes, that last 2 second(s). Context: occurred at home. Associated injury: The patient did not suffer any apparent associated injury. Associated signs and symptoms: The patient has no apparent associated signs or symptoms. Current symptoms: Currently, the patient is not experiencing any symptoms. The patient has not experienced similar symptoms in the past. Historical: - Allergies: 10:30 NKDA; aj1 - Home Meds: 10:30 Amitriptyline 20 mg, two tabs at night Oral [Active]; citalopram 40 mg tab 1 tab once aj1 daily [Active]; Clonazepam Oral as needed [Active]; Tylenol #3 Oral [Active]; Omeprazole Oral [Active]; Percocet Oral [Active]; - PMHx: 10:30 Anxiety; Chronic pain; Depression; aj1 - Immunization history:: Flu vaccine is up to date. - Social history:: Smoking status: Patient/guardian denies using tobacco. - Ebola Screening: : Patient denies travel to an Ebola-affected area in the 21 days before illness onset. - Family history:: not pertinent. ROS: 12:11 Constitutional: Negative for fever, chills, and weight loss, Eyes: Negative for injury, liz pain, redness, and discharge, ENT: Negative for injury, pain, and discharge, Neck: Negative for injury, pain, and swelling, Cardiovascular: Negative for chest pain, palpitations, and edema, Abdomen/GI: Negative for abdominal pain, nausea, vomiting, diarrhea, and constipation, Back: Negative for injury and pain, : Negative for injury, bleeding, discharge, and swelling, MS/Extremity: Negative for injury and deformity, Skin: Negative for injury, rash, and discoloration, Psych: Negative for depression, anxiety, suicide ideation, homicidal ideation, and hallucinations, Allergy/Immunology: Negative for hives, rash, and allergies, Endocrine: Negative for neck swelling, polydipsia, polyuria, polyphagia, and marked weight changes, Hematologic/Lymphatic: Negative for swollen nodes, abnormal bleeding, and unusual bruising. 12:11 Respiratory: Positive for shortness of breath. 12:11 Neuro: Positive for near syncope, weakness. Exam: 12:11 Constitutional: This is a well developed, well nourished patient who is awake, alert, liz and in no acute distress. Head/Face: Normocephalic, atraumatic. Eyes: Pupils equal round and reactive to light, extra-ocular motions intact. Lids and lashes normal. Conjunctiva and sclera are non-icteric and not injected. Cornea within normal limits. Periorbital areas with no swelling, redness, or edema. ENT: Nares patent. No nasal discharge, no septal abnormalities noted. Tympanic membranes are normal and external auditory canals are clear. Oropharynx with no redness, swelling, or masses, exudates, or evidence of obstruction, uvula midline. Mucous membranes moist. Neck: Trachea midline, no thyromegaly or masses palpated, and no cervical lymphadenopathy. Supple, full range of motion without nuchal rigidity, or vertebral point tenderness. No Meningismus. Chest/axilla: Normal chest wall appearance and motion. Nontender with no deformity. No lesions are appreciated. Cardiovascular: Regular rate and rhythm with a normal S1 and S2. No gallops, murmurs, or rubs. Normal PMI, no JVD. No pulse deficits. Abdomen/GI: Soft, non-tender, with normal bowel sounds. No distension or tympany. No guarding or rebound. No evidence of tenderness throughout. Back: No spinal tenderness. No costovertebral tenderness. Full range of motion. Female : Normal external genitalia. Skin: Warm, dry with normal turgor. Normal color with no rashes, no lesions, and no evidence of cellulitis. MS/ Extremity: Pulses equal, no cyanosis. Neurovascular intact. Full, normal range of motion. Neuro: Awake and alert, GCS 15, oriented to person, place, time, and situation. Cranial nerves II-XII grossly intact. Motor strength 5/5 in all extremities. Sensory grossly intact. Cerebellar exam normal. Normal gait. Psych: Awake, alert, with orientation to person, place and time. Behavior, mood, and affect are within normal limits. 12:11 Respiratory: the patient does not display signs of respiratory distress, Respirations: normal, Breath sounds: decreased breath sounds, rhonchi, that are mild, are scattered, stridor, is not appreciated, + upper airway congestion. 12:55 Musculoskeletal/extremity: DVT Exam: No signs of deep vein thrombosis. no pain, no liz swelling, no tenderness, negative Homans' sign noted on exam, no appreciated bluish discoloration, no erythema, no increased warmth. Vital Signs: 10:30 BP 142 / 69; Pulse 80; Resp 24; Temp 98.2; Pulse Ox 98% on R/A; Weight 52.62 kg (R); aj1 Height 5 ft. 2 in. (157.48 cm) (R); Pain 0/10; 11:00 BP 133 / 68; Pulse 80; Resp 20; Pulse Ox 97% on R/A; aj1 11:30 BP 138 / 69; Pulse 76; Resp 18; Pulse Ox 96% on R/A; aj1 12:00 BP 140 / 58; Pulse 67; Resp 22; Pulse Ox 96% on R/A; aj1 13:03 BP 147 / 67; Pulse 87; Resp 21; Pulse Ox 97% on R/A; aj1 10:30 Body Mass Index 21.22 (52.62 kg, 157.48 cm) [facility] MDM: 10:38 Patient medically screened. [facility] 12:17 Data reviewed: vital signs, nurses notes, lab test result(s), EKG, radiologic studies, [facility] CT scan, plain films. 04/10 10:57 Order name: Basic Metabolic Panel; Complete Time: 12:17 [facility] 04/10 10:57 Order name: CBC with Diff; Complete Time: 12:17 [facility] 04/10 10:57 Order name: LFT's; Complete Time: 12:17 [facility] 04/10 10:57 Order name: Magnesium; Complete Time: 12:17 [facility] 04/10 10:57 Order name: NT PRO-BNP; Complete Time: 12:17 [facility] 04/10 10:57 Order name: PT-INR; Complete Time: 12:17 [facility] 04/10 10:57 Order name: Troponin (emerg Dept Use Only); Complete Time: 12:17 [facility] 04/10 10:57 Order name: XRAY Chest (1 view); Complete Time: 12:17 [facility] 04/10 10:57 Order name: EKG; Complete Time: 10:59 [facility] 04/10 10:57 Order name: Urine Culture [facility] 04/10 10:57 Order name: CT Head Brain wo Cont; Complete Time: 12:17 [facility] 04/10 10:57 Order name: Lipase; Complete Time: 12:17 [facility] 04/10 12:47 Order name: Urine Dipstick--Ancillary (enter results) 04/10 10:57 Order name: Cardiac monitoring; Complete Time: 11:00 [facility] 04/10 10:57 Order name: EKG - Nurse/Tech; Complete Time: 11:00 [facility] 04/10 10:57 Order name: IV Saline Lock; Complete Time: 11:00 [facility] 04/10 10:57 Order name: Labs collected and sent; Complete Time: 11:21 [facility] 04/10 10:57 Order name: O2 Per Protocol; Complete Time: 11:00 [facility] 04/10 10:57 Order name: O2 Sat Monitoring; Complete Time: 11:00 [facility] 04/10 10:57 Order name: Urine Dipstick-Ancillary (obtain specimen); Complete Time: 12:45 [facility] Administered Medications: 12:11 Drug: NS 0.9% 1000 ml Route: IV; Rate: 125 ml/hr; Site: right antecubital; [facility] 13:22 Follow up: IV Status: Completed infusion; IV Intake: 150ml [facility] Disposition: 04/10/19 12:20 Discharged to Home. Impression: Weakness, Anxiety disorder, unspecified. - Condition is Stable. - Discharge Instructions: Near-Syncope, Weakness, Near-Syncope, [id number], Weakness, [id number]. - Medication Reconciliation Form, Thank You Letter, Antibiotic Education, Prescription Opioid Use form. - Follow up: Private Physician; When: 2 - 3 days; Reason: Recheck today's complaints, Continuance of care, Re-evaluation by your physician. - Problem is new. - Symptoms have improved. Signatures: Dispatcher [employer] Rafaela Coleman RN RN aj1 Micah Jarvis MD MD cha Corrections: (The following items were deleted from the chart) 13:42 12:20 04/10/2019 12:20 Discharged to Home. Impression: Weakness; Anxiety disorder, aj1 unspecified. Condition is Stable. Forms are Medication Reconciliation Form, Thank You Letter, Antibiotic Education, Prescription Opioid Use. Follow up: Private Physician; When: 2 - 3 days; Reason: Recheck today's complaints, Continuance of care, Re-evaluation by your physician. Problem is new. Symptoms have improved. liz
--- NOTE | 2019-04-10 12:21 | ER ---
Nurse's Notes [facility] Name: Alessia Coombs Age: 88 yrs Sex: Female : 1930 Arrival Date: 04/10/2019 Time: 10:31 Bed 25 Private MD: Diagnosis: Weakness;Anxiety disorder, unspecified Presentation: 04/10 10:30 Presenting complaint: Patient states: She started feeling dizzy last night around 2200, aj1 like she was going to pass out. Patient reports that she was also feeling short of breath at that time, she thought she would feel better in the morning, but when she woke up she still felt like she was going to pass out. Denies chest pain, denies SOB at this time. Patient reports that she has an abscess on her esophagus that is going to be surgically drained in the near future. 10:30 Transition of care: patient was not received from another setting of care. Onset of [facility] symptoms was April 09, 2019 at 22:00. Risk Assessment: Do you want to hurt yourself or someone else? Patient reports no desire to harm self or others. Initial Sepsis Screen: Does the patient meet any 2 criteria? RR > 20 per min. No. Patient's initial sepsis screen is negative. Does the patient have a suspected source of infection? Yes: Other: known esophageal abscess. Care prior to arrival: IV initiated. 20 GA, in the right antecubital area, Oxygen administered. via nasal cannula. 10:30 Method Of Arrival: EMS: [facility] aj1 10:30 Acuity: LAURYN 2 aj1 Triage Assessment: 10:30 General: Appears in no apparent distress. comfortable, Behavior is calm, cooperative, aj1 appropriate for age. Pain: Denies pain. Neuro: Level of Consciousness is awake, alert, obeys commands, Oriented to person, place, time, situation, Moves all extremities. Full function Speech is normal, Facial symmetry appears normal, Reports dizziness, Denies weakness syncope. Historical: - Allergies: 10:30 NKDA; aj1 - Home Meds: 10:30 Amitriptyline 20 mg, two tabs at night Oral [Active]; citalopram 40 mg tab 1 tab once aj1 daily [Active]; Clonazepam Oral as needed [Active]; Tylenol #3 Oral [Active]; Omeprazole Oral [Active]; Percocet Oral [Active]; - PMHx: 10:30 Anxiety; Chronic pain; Depression; aj1 - Immunization history:: Flu vaccine is up to date. - Social history:: Smoking status: Patient/guardian denies using tobacco. - Ebola Screening: : Patient denies travel to an Ebola-affected area in the 21 days before illness onset. - Family history:: not pertinent. Screenin:30 Abuse screen: Denies threats or abuse. Denies injuries from another. Nutritional aj1 screening: No deficits noted. Tuberculosis screening: No symptoms or risk factors identified. 13:41 Fall Risk No fall in past 12 months (0 pts). No secondary diagnosis (0 pts). No IV (0 aj1 pts). Ambulatory Aid- None/Bed Rest/Nurse Assist (0 pts). Gait- Impaired (20 pts.). Mental Status- Oriented to own ability (0 pts). Total Taylor Fall Scale indicates No Risk (0-24 pts). Assessment: 10:30 General: Appears in no apparent distress. comfortable, Behavior is calm, cooperative, aj1 appropriate for age. Pain: Denies pain. Neuro: Level of Consciousness is awake, alert, obeys commands, Oriented to person, place, time, situation, Moves all extremities. Full function Speech is normal, Facial symmetry appears normal, Reports dizziness. Cardiovascular: Reports shortness of breath last night that has since resolved Denies chest pain, Heart tones S1 S2 present Rhythm is sinus rhythm. Respiratory: Airway is patent Respiratory effort is even, unlabored, Respiratory pattern is regular, symmetrical. GI: No signs and/or symptoms were reported involving the gastrointestinal system. : No signs and/or symptoms were reported regarding the genitourinary system. EENT: No signs and/or symptoms were reported regarding the EENT system. Derm: Skin is clammy, Skin is pale, Skin temperature is warm. Musculoskeletal: No signs and/or symptoms reported regarding the musculoskeletal system. Circulation, motion, and sensation intact. 11:30 Reassessment: Patient appears in no apparent distress at this time. No changes from aj1 previously documented assessment. Patient and/or family updated on plan of care and expected duration. Pain level reassessed. Patient is alert, oriented x 3, equal unlabored respirations, skin warm/dry/pink. 12:37 Reassessment: Patient appears in no apparent distress at this time. No changes from aj1 previously documented assessment. Patient and/or family updated on plan of care and expected duration. Pain level reassessed. Patient is alert, oriented x 3, equal unlabored respirations, skin warm/dry/pink. 12:38 Reassessment: Patient discharge pending urine results per Dr. Jarvis, patient is aj1 currently on bedside commode to try to urinate. 13:19 Reassessment: Attempted to discharge patient, patient states that her friend Tiara cabezas will pick her up, but she doesn't know her number. Spoke with patient's daughter via telephone who states that she will send someone to pick the patient up. Notified charge nurse Joselyn Paulino RN. Vital Signs: 10:30 BP 142 / 69; Pulse 80; Resp 24; Temp 98.2; Pulse Ox 98% on R/A; Weight 52.62 kg (R); aj1 Height 5 ft. 2 in. (157.48 cm) (R); Pain 0/10; 11:00 BP 133 / 68; Pulse 80; Resp 20; Pulse Ox 97% on R/A; aj1 11:30 BP 138 / 69; Pulse 76; Resp 18; Pulse Ox 96% on R/A; aj1 12:00 BP 140 / 58; Pulse 67; Resp 22; Pulse Ox 96% on R/A; aj1 13:03 BP 147 / 67; Pulse 87; Resp 21; Pulse Ox 97% on R/A; aj1 10:30 Body Mass Index 21.22 (52.62 kg, 157.48 cm) aj1 ED Course: 10:30 No provider procedures requiring assistance completed. aj1 10:30 Arm band placed on. aj1 10:30 Patient has correct armband on for positive identification. Bed in low position. Call aj1 light in reach. Side rails up X 1. night monitor on. Pulse ox on. NIBP on. 10:31 Patient arrived in ED. ss 10:31 Rafaela Alaniz, ILYA is Primary Nurse. aj1 10:38 Micah Jarvis MD is Attending Physician. liz 10:49 Triage completed. aj1 10:52 EKG done, by shampoo technician. reviewed by Micah Jarvis MD. dt2 11:10 Maintain EMS IV. Dressing intact. Good blood return noted. Site clean \T\ dry. Gauge \T\ jelena 3 site: 20-gauge in RAC. 11:15 Initial lab(s) drawn, by me, sent to lab. jp3 11:21 CBC with Diff Sent. jp3 11:22 X-ray completed. Portable x-ray completed in exam room. Patient tolerated procedure ml well. 11:27 XRAY Chest (1 view) In Process Unspecified. EDMS 11:30 CT Head Brain wo Cont In Process Unspecified. EDMS 12:40 Urine collected: clean catch specimen, clear, aracely colored. jp3 12:45 Urine Culture Sent. jp3 13:21 IV discontinued, intact, bleeding controlled, No redness/swelling at site. Pressure aj1 dressing applied. Administered Medications: 12:11 Drug: NS 0.9% 1000 ml Route: IV; Rate: 125 ml/hr; Site: right antecubital; aj1 13:22 Follow up: IV Status: Completed infusion; IV Intake: 150ml aj1 Intake: 13:22 IV: 150ml; Total: 150ml. aj1 Outcome: 12:20 Discharge ordered by MD. hill 13:41 Discharged to home via wheelchair, with family. aj1 13:41 Condition: good 13:41 Discharge instructions given to patient, family, Instructed on discharge instructions, follow up and referral plans. Demonstrated understanding of instructions, follow-up care. 13:42 Patient left the ED. aj1 Signatures: Dispatcher [employer] Rafaela Coleman, RN RN aj1 Micah Jarvis MD MD cha Lopez, Melissa ml Smirch, Shelby, RN RN ss Teague, Danielle dtSurya Weldon jp3
[2019-04-10 13:14] LABS: Urine Blood NEGATIVE (NEG); Urine Glucose NEGATIVE (NEG); Urine Protein NEGATIVE (NEG); Urine Specific Gravity 1.015 (1.005-1.030)
[2019-04-10 14:29] VITALS: TEMP 98.2
[2019-04-10 14:34] VITALS: BP 147/67; O2SAT 97
--- NOTE | 2019-04-10 15:07 | EKG ---
Test Date: 2019-04-10 Test Time: 10:31:21 Home Designer: JUSTIN MEASUREMENT RESULTS: Intervals: Rate: 77 MD: 202 QRSD: 88 QT: 382 QTc: 432 [place]: P: 42 MD: 202 QRS: 18 T: 62 INTERPRETIVE STATEMENTS: Normal sinus rhythm with sinus arrhythmia Possible Anterior infarct, age undetermined Abnormal ECG Compared to ECG 01/31/2019 14:18:17 No significant changes Electronically Signed On 04-10-19 15:05:35 CDT by Desmond Madison
== END 2019-04-10 13:42 | disposition home or self-care (01) ==
LOC: ER 10:30
DX: R53.1 Weakness (principal); R55 Syncope and collapse; F41.9 Anxiety disorder, unspecified; F32.9 Major depressive disorder, single episode, unspecified
CPT/HCPCS: 93005; 87088; 85025; 87086; 80048; 36415; 83735; 85610; 80076; 81003; 84484; 83690; 83880; 70450; 71045; 96360; 99284; J7030; 87077; 87186

== ENCOUNTER 2019-04-15 07:01 | Emergency (ER) | payer OTHER ==
--- OUTSIDE RECORDS SUMMARY | 2019-04-15 07:03 | XMS REPORT | Clinical Summary ---
:1930 Author Organization [facility] Address [address] [place] [id number] Care Team Providers Name Role Phone Cole [...] Not on file Results Not on fileafter 04/14/2018 Insurance Payer Benefit Plan / Group Subscriber ID Type Phone Address MEDICARE MEDICARE A B xxxxxxxxxx Medicare ([place]) [place] [address] Advance Directives For more information, please contact:[facility] [address] [phone] Code Status Date Activated Date Inactivated Comments Full Code 08/26/2016 12:31 AM 08/26/2016 5:56 PM This code status was determined by: Patient
[2019-04-15 07:45] LABS: Basophils % 0.6 % (0-1.3); Eosinophils % 2.2 % (0-4.4); Hematocrit 34.8 % (36.0-45.0); MPV 10.4 fL (7.6-11.3); Monocytes % 7.1 % (3.3-12.3); RBC Red Blood Cell Count 3.58 M/uL (3.86-4.86)
[2019-04-15 07:59] LABS: Albumin 3.6 g/dL (3.4-5.0); Bilirubin Direct 0.2 mg/dL (0-0.2); Bilirubin Total 0.5 mg/dL (0.2-1.0); Potassium 4.1 mmol/L (3.5-5.1); Protein, Total 7.4 g/dL (6.4-8.2)
--- NOTE | 2019-04-15 08:53 | RAD REPORT ---
EXAM DESCRIPTION: CTAbdomen Pelvis W Contrast - 04/15/2019 8:17 am CLINICAL HISTORY: Abdominal pain. ABD PAIN COMPARISON: Abdomen Pelvis W Contrast dated 12/17/2016; CT ABD PELVIS W CONTRAST dated 06/17/2013; C T ABD PELVIS W CONTRAST dated 11/25/2008 TECHNIQUE: Biphasic CT imaging of the abdomen and pelvis was performed with 100 ml non-ionic IV cont rast. All CT scans are performed using dose optimization technique as appropriate and may include automated exposure control or mA/KV adjustment according to patient size. FINDINGS: There is elevation of the right hemidiaphragm is seen.The lung bases are emphysematous wit h subsegmental atelectasis bilaterally. The liver, spleen, pancreas, adrenal glands and kidneys are within normal limits. No bowel obstruction, free air, free fluid or abscess. Large amount of stool is present in the rectum . Sigmoid diverticulosis coli is present without diverticulitis. The appendix is not identified as a discrete structure, however, no secondary findings of appendicitis are identified. No evidence of s ignificant lymphadenopathy. Diffuse osteopenia with multiple osteoporotic lumbar compression deformities present centrally. Aorti c atherosclerosis is seen. IMPRESSION: Moderate retained stool in the colon. Elevated right hemidiaphragm, chronic.
[2019-04-15 10:16] LABS: Urine Blood NEGATIVE (NEG); Urine Glucose NEGATIVE (NEG); Urine Protein NEGATIVE (NEG); Urine Specific Gravity 1.015 (1.005-1.030); Urine pH 8.5 (5.0-7.0)
[2019-04-15] MEDS ORDERED: MORPHINE 2 MG/ML SYR ONE (10:30)
[2019-04-15 10:40] LABS: Protime INR 1.09
[2019-04-15 10:56] LABS: Magnesium 2.1 mg/dL (1.8-2.4); NT PRO-BNP 285 pg/mL (<450); Troponin (Emerg Dept Use Only) < 0.02 ng/mL (0.0-0.045)
--- NOTE | 2019-04-15 12:35 | ER ---
Nurse's Notes [facility] Name: Alessia Coombs Age: 88 yrs Sex: Female : 1930 Arrival Date: 04/15/2019 Time: 07:02 Bed 15 Private MD: Diagnosis: Epigastric pain Presentation: 04/15 07:03 Presenting complaint: EMS states: they were toned out for report of pt with weakness, bb difficulty swallowing pt has appt for endoscopy on . Transition of care: patient was not received from another setting of care. Onset of symptoms was April 15, 2019. Risk Assessment: Do you want to hurt yourself or someone else? Patient reports no desire to harm self or others. Initial Sepsis Screen: Does the patient meet any 2 criteria? No. Patient's initial sepsis screen is negative. Does the patient have a suspected source of infection? No. Patient's initial sepsis screen is negative. Care prior to arrival: Glucose check: 102. 07:03 Method Of Arrival: EMS: [facility] bb 07:03 Acuity: LAURYN 3 bb Historical: - Allergies: 07:07 NKDA; bb - Home Meds: 07:07 Amitriptyline 20 mg, two tabs at night Oral [Active]; citalopram 40 mg tab 1 tab once bb daily [Active]; Clonazepam Oral as needed [Active]; diazepam Oral [Active]; Omeprazole Oral [Active]; Percocet Oral [Active]; Tylenol #3 Oral [Active]; - PMHx: 07:07 Anxiety; Chronic pain; Depression; bb - Immunization history:: Adult Immunizations up to date. - Social history:: Smoking status: unknown. - Ebola Screening: : No symptoms or risks identified at this time. Screenin:35 Abuse screen: Denies threats or abuse. Denies injuries from another. Nutritional sg screening: No deficits noted. Tuberculosis screening: No symptoms or risk factors identified. Never had TB. Fall Risk None identified. Assessment: 07:35 General: Appears in no apparent distress. slender, well groomed, well developed, well sg nourished, Behavior is calm, cooperative, appropriate for age. Pain: Complains of pain in Throat, chest, body aches Quality of pain is described as aching. 07:35 VAN Scoring: Arm Drift: Patients demonstrates NO arm weakness. Patient is VAN Negative. sg The patient has not been NPO before screening. The patient is alert, and able to follow commands. The patient does not exhibit slurred or garbled speech. The patient is not exhibiting difficulty speaking. The patient does not exhibit difficulty understanding words. Patient tolerated one teaspoon of water. No drooling, immediate coughing, gurgling, or clearing of the throat was noted. 07:38 Neuro: Level of Consciousness is awake, alert, obeys commands, Oriented to person, sg place, time, Optical Goods Drilling Machine Operator are equal bilaterally Speech is normal, Facial symmetry appears normal. Cardiovascular: Capillary refill is brisk in bilateral fingers Patient's skin is warm and dry. Chest pain is described as vague. Respiratory: Airway is patent Respiratory effort is even, unlabored, Respiratory pattern is regular, symmetrical. GI: Abdomen is flat, non-distended. : No signs and/or symptoms were reported regarding the genitourinary system. EENT: Nares are clear bilaterally Oral mucosa is moist. Throat is clear. Derm: Skin is pink, warm \T\ dry. Musculoskeletal: Circulation, motion, and sensation intact. Range of motion: intact in all extremities, Reports weakness in general weakness in entire body. 07:58 Reassessment: pt requesting water, Padmini ARREAGA notified, ordered to andminister PO Ice sg chips only. 09:30 Reassessment: pt reports not needing to urinate at this time, pt eating ice chips sg tolerating well, will attempt to obtain a specimen at a later time, pt stated understanding. 10:00 Reassessment: Patient appears in no apparent distress at this time. pt ambulatory with sg standby assist to restroom, after void and ambulation back to bed pt c/o CP that is a 10/10 with crying, pt ERP GIBSON Oneill notified, orders received, will continue to monitor. General: Behavior is crying. 10:00 The patient tolerated 90mL of water. No drooling, immediate coughing, gurgling, or sg clearing of the throat was noted. The patient passed the bedside swallow screening. Oral medications may be given as ordered. Contact Physician for further diet orders. Provider notified of bedside swallow screening results: Janki ARREAGA. Vital Signs: 07:07 BP 133 / 84; Pulse 100; Resp 18 S; Temp 98.7(O); Pulse Ox 94% on R/A; Weight 52.62 kg bb (R); Height 5 ft. 3 in. (160.02 cm) (R); 08:32 BP 135 / 77; Pulse 70; Resp 17; Pulse Ox 98% on R/A; sg 10:18 BP 133 / 84; Pulse 88; Resp 17; Pulse Ox 95% on R/A; sg 12:44 BP 145 / 84; Pulse 89; Resp 17; Pulse Ox 98% on R/A; sg 07:07 Body Mass Index 20.55 (52.62 kg, 160.02 cm) bb NIH Stroke Scale Scores: 07:35 NIHSS Score: 0 sg ED Course: 07:02 Patient arrived in ED. bb 07:05 Triage completed. bb 07:07 Janki Kelley FNP is PHCP. nh 07:07 Aquilino Riggins MD is Attending Physician. nh 07:07 Arm band placed on Patient placed in an exam room, on a stretcher, on pulse oximetry. bb 07:15 Patient has correct armband on for positive identification. Placed in gown. Bed in low sg position. Call light in reach. Side rails up X2. 07:16 Elvis Menchaca, RN is Primary Nurse. sg 07:35 Initial lab(s) drawn, by me, sent to lab. Inserted saline lock: 20 gauge in right sg forearm, using aseptic technique. Blood collected. 07:49 Radiology exam delayed due to lab results not completed at this time. (BUN/Creatinine). mw3 08:17 CT Abd/Pelvis - IV Contrast Only In Process Unspecified. EDMS 08:18 CT completed. Patient tolerated procedure well. Patient moved back from CT. mw3 10:09 Urine collected: clean catch specimen, clear. sg 10:20 surveillance system monitor on. Pulse ox on. NIBP on. Warm blanket given. Head of bed elevated. sg 10:23 EKG done, by ED staff, reviewed by Janki ARREAGA. jb1 10:27 XRAY Chest (1 view) In Process Unspecified. EDMS 13:20 No provider procedures requiring assistance completed. IV discontinued, intact, sg bleeding controlled, No redness/swelling at site. Pressure dressing applied. Administered Medications: 10:25 Drug: morphine 2 mg Route: IVP; Site: right antecubital; 10:54 Follow up: Response: No adverse reaction; Pain is unchanged, physician notified sg Outcome: 12:35 Discharge ordered by . nh 13:20 Discharged to home via wheelchair, with family. 13:20 Condition: good 13:20 Discharge instructions given to patient, family, welt edge rounder, Instructed on discharge instructions, follow up and referral plans. medication usage, safety practices, Demonstrated understanding of instructions, follow-up care. 13:26 Patient left the ED. NIH Stroke Scale - NIH Stroke Score Date: 04/15/2019 Time: 07:35 Total Score = 0 1a. Level of Consciousness (LOC) - 0(Alert) 1b. Level of Consciousness (LOC) (Year \T\ Age) - 0(Both) 1c. LOC Commands (Open \T\ Closes Eyes/Medical Billing Supervisor) - 0(Both) 2. Best Gaze (Lateral Gaze Paresis) - 0(Normal) 3. Visual Field Loss - 0(No visual loss) 4. Facial Palsy - 0(Normal) 5a. Left Arm: Motor (10-second hold) - 0(No drift) 5b. Right Arm: Motor (10-second hold) - 0(No drift) 6a. Left Leg: Motor (5-second hold - always test supine) - 0(No drift) 6b. Right Leg: Motor (5-second hold - always test supine) - 0(No drift) 7. Limb Ataxia (finger/nose \T\ heel/byrd - test with eyes open) - 0(Absent) 8. Sensory Loss (pinprick arms/legs/face) - 0(Normal) 9. Best Language: Aphasia (description/naming/reading) - 0(No aphasia) 10. Dysarthria (speech clarity - read or repeat words) - 0(Normal) 11. Extinction and Inattention (visual/tactile/auditory/spatial/personal) - 0(No abnormality) Initials: Signatures: Dispatcher [employer] Coy Soriano1 Elvis Menchaca, ILYA RN sg Janki Kelley, MOID MIDDLE SCHOOL TEACHER MOID MIDDLE SCHOOL TEACHER Christina Santana RN RN Katja Lawrence mw3 Corrections: (The following items were deleted from the chart) 07:40 07:35 Pain: Complains of pain in Throat, chest, body aches sg sg 07:41 07:38 Musculoskeletal: Circulation, motion, and sensation intact. Range of sg motion: intact in all extremities, sg
--- NOTE | 2019-04-15 12:36 | EDPHYS ---
Physician Documentation [facility] Name: Alessia Coombs Age: 88 yrs Sex: Female : 1930 Arrival Date: 04/15/2019 Time: 07:02 Bed 15 Private MD: ED Physician Aquilino Riggins HPI: 04/15 10:05 This 88 yrs old Female presents to ER via EMS with complaints of Weakness. nh 12:30 The patient presents with abdominal pain in the epigastric area. Onset: The nh symptoms/episode began/occurred 1 month(s) ago. The symptoms do not radiate. Associated signs and symptoms: Pertinent positives: Feels like food won't go down, Pertinent negatives: nausea and vomiting, diarrhea. The symptoms are described as dull, intermittent. Modifying factors: The symptoms are alleviated by nothing, the symptoms are aggravated by nothing. Severity of pain: At its worst the pain was moderate just prior to arrival, in the emergency department the pain is unchanged. The patient has experienced similar episodes in the past, several times, and the symptoms today are exactly the same. The patient has been recently seen at the [facility] Emergency Department, this week. Historical: - Allergies: 07:07 NKDA; bb - Home Meds: 07:07 Amitriptyline 20 mg, two tabs at night Oral [Active]; citalopram 40 mg tab 1 tab once bb daily [Active]; Clonazepam Oral as needed [Active]; diazepam Oral [Active]; Omeprazole Oral [Active]; Percocet Oral [Active]; Tylenol #3 Oral [Active]; - PMHx: 07:07 Anxiety; Chronic pain; Depression; bb - Immunization history:: Adult Immunizations up to date. - Social history:: Smoking status: unknown. - Ebola Screening: : No symptoms or risks identified at this time. ROS: 12:30 Constitutional: Negative for fever, chills, and weight loss, Eyes: Negative for injury, nh pain, redness, and discharge, ENT: Negative for injury, pain, and discharge, Neck: Negative for injury, pain, and swelling, Cardiovascular: Negative for chest pain, palpitations, and edema, Respiratory: Negative for shortness of breath, cough, wheezing, and pleuritic chest pain, Back: Negative for injury and pain, : Negative for injury, bleeding, discharge, and swelling, MS/Extremity: Negative for injury and deformity, Skin: Negative for injury, rash, and discoloration, Neuro: Negative for headache, weakness, numbness, tingling, and seizure, Psych: Negative for depression, anxiety, suicide ideation, homicidal ideation, and hallucinations, Allergy/Immunology: Negative for hives, rash, and allergies, Endocrine: Negative for neck swelling, polydipsia, polyuria, polyphagia, and marked weight changes, Hematologic/Lymphatic: Negative for swollen nodes, abnormal bleeding, and unusual bruising. 12:30 Abdomen/GI: Positive for abdominal pain, Negative for nausea, vomiting, and diarrhea. Exam: 12:30 Constitutional: This is a well developed, well nourished patient who is awake, alert, nh and in no acute distress. Head/Face: Normocephalic, atraumatic. Eyes: Pupils equal round and reactive to light, extra-ocular motions intact. Lids and lashes normal. Conjunctiva and sclera are non-icteric and not injected. Cornea within normal limits. Periorbital areas with no swelling, redness, or edema. ENT: Nares patent. No nasal discharge, no septal abnormalities noted. Tympanic membranes are normal and external auditory canals are clear. Oropharynx with no redness, swelling, or masses, exudates, or evidence of obstruction, uvula midline. Mucous membranes moist. Neck: Trachea midline, no thyromegaly or masses palpated, and no cervical lymphadenopathy. Supple, full range of motion without nuchal rigidity, or vertebral point tenderness. No Meningismus. Chest/axilla: Normal chest wall appearance and motion. Nontender with no deformity. No lesions are appreciated. Cardiovascular: Regular rate and rhythm with a normal S1 and S2. No gallops, murmurs, or rubs. Normal PMI, no JVD. No pulse deficits. Respiratory: Lungs have equal breath sounds bilaterally, clear to auscultation and percussion. No rales, rhonchi or wheezes noted. No increased work of breathing, no retractions or nasal flaring. Abdomen/GI: Soft, non-tender, with normal bowel sounds. No distension or tympany. No guarding or rebound. No evidence of tenderness throughout. Back: No spinal tenderness. No costovertebral tenderness. Full range of motion. Skin: Warm, dry with normal turgor. Normal color with no rashes, no lesions, and no evidence of cellulitis. MS/ Extremity: Pulses equal, no cyanosis. Neurovascular intact. Full, normal range of motion. Neuro: Awake and alert, GCS 15, oriented to person, place, time, and situation. Cranial nerves II-XII grossly intact. Motor strength 5/5 in all extremities. Sensory grossly intact. Cerebellar exam normal. Normal gait. Psych: Awake, alert, with orientation to person, place and time. Behavior, mood, and affect are within normal limits. Vital Signs: 07:07 BP 133 / 84; Pulse 100; Resp 18 S; Temp 98.7(O); Pulse Ox 94% on R/A; Weight 52.62 kg bb (R); Height 5 ft. 3 in. (160.02 cm) (R); 08:32 BP 135 / 77; Pulse 70; Resp 17; Pulse Ox 98% on R/A; sg 10:18 BP 133 / 84; Pulse 88; Resp 17; Pulse Ox 95% on R/A; sg 12:44 BP 145 / 84; Pulse 89; Resp 17; Pulse Ox 98% on R/A; sg 07:07 Body Mass Index 20.55 (52.62 kg, 160.02 cm) bb NIH Stroke Scale Scores: 07:35 NIHSS Score: 0 sg MDM: 07:07 Patient medically screened. oh 12:30 Data reviewed: vital signs, nurses notes, lab test result(s), radiologic studies, I nh have discussed the patient's presentation/case with the attending Emergency Department Physician; and as a result, I will discharge patient. Counseling: I had a detailed discussion with the patient and/or guardian regarding: the historical points, exam findings, and any diagnostic results supporting the discharge/admit diagnosis, lab results, radiology results, the need for outpatient follow up, to return to the emergency department if symptoms worsen or persist or if there are any questions or concerns that arise at home. 04/15 07:09 Order name: Basic Metabolic Panel; Complete Time: 08:20 oh 04/15 07:09 Order name: CBC with Diff; Complete Time: 07:50 oh 04/15 07:09 Order name: Creatinine for Radiology; Complete Time: 08:20 oh 04/15 07:09 Order name: Hepatic Function; Complete Time: 08:20 oh 04/15 07:09 Order name: Lipase; Complete Time: 08:20 oh 04/15 10:06 Order name: Magnesium; Complete Time: 11:10 oh 04/15 07:09 Order name: CT Abd/Pelvis - IV Contrast Only; Complete Time: 09:19 oh 04/15 10:06 Order name: NT PRO-BNP; Complete Time: 11:10 oh 04/15 10:06 Order name: PT-INR; Complete Time: 11:10 oh 04/15 10:06 Order name: Troponin (emerg Dept Use Only); Complete Time: 11:10 oh 04/15 10:06 Order name: XRAY Chest (1 view); Complete Time: 13:13 oh 04/15 10:06 Order name: EKG; Complete Time: 10:10 oh 04/15 10:07 Order name: Urine Dipstick--Ancillary (enter results); Complete Time: 10:48 04/15 07:09 Order name: IV Saline Lock; Complete Time: 07:43 oh 04/15 07:09 Order name: Labs collected and sent; Complete Time: 07:43 oh 04/15 07:57 Order name: PO challenge; Complete Time: 07:57 04/15 09:21 Order name: Urine Dipstick-Ancillary (obtain specimen); Complete Time: 12:45 oh 04/15 10:06 Order name: Cardiac monitoring; Complete Time: 10:08 oh 04/15 10:06 Order name: EKG - Nurse/Tech; Complete Time: 10:37 oh 04/15 10:06 Order name: Labs collected and sent; Complete Time: 10:08 oh 04/15 10:06 Order name: O2 Per Protocol; Complete Time: 10:08 oh 04/15 10:06 Order name: O2 Sat Monitoring; Complete Time: 10:08 oh 04/15 13:07 Order name: Social Service Consult EDMS Administered Medications: 10:25 Drug: morphine 2 mg Route: IVP; Site: right antecubital; sg 10:54 Follow up: Response: No adverse reaction; Pain is unchanged, physician notified sg Disposition: 04/15/19 12:35 Discharged to Home. Impression: Epigastric pain. - Condition is Stable. - Discharge Instructions: Abdominal Pain, Adult. - Medication Reconciliation Form, Thank You Letter, Antibiotic Education, Prescription Opioid Use, SBAR form form. - Follow up: Private Physician; When: 2 - 3 days; Reason: Recheck today's complaints. - Problem is new. - Symptoms are unchanged. NIH Stroke Scale - NIH Stroke Score Date: 04/15/2019 Time: 07:35 Total Score = 0 1a. Level of Consciousness (LOC) - 0(Alert) 1b. Level of Consciousness (LOC) (Year \T\ Age) - 0(Both) 1c. LOC Commands (Open \T\ Closes Eyes/Mill Manager) - 0(Both) 2. Best Gaze (Lateral Gaze Paresis) - 0(Normal) 3. Visual Field Loss - 0(No visual loss) 4. Facial Palsy - 0(Normal) 5a. Left Arm: Motor (10-second hold) - 0(No drift) 5b. Right Arm: Motor (10-second hold) - 0(No drift) 6a. Left Leg: Motor (5-second hold - always test supine) - 0(No drift) 6b. Right Leg: Motor (5-second hold - always test supine) - 0(No drift) 7. Limb Ataxia (finger/nose \T\ heel/byrd - test with eyes open) - 0(Absent) 8. Sensory Loss (pinprick arms/legs/face) - 0(Normal) 9. Best Language: Aphasia (description/naming/reading) - 0(No aphasia) 10. Dysarthria (speech clarity - read or repeat words) - 0(Normal) 11. Extinction and Inattention (visual/tactile/auditory/spatial/personal) - 0(No abnormality) Initials: Addendum: 04/17/2019 04:58 Co-signature as Attending Physician, Aquilino Riggins MD I agree with the [facility] assessment and plan of care. Signatures: Dispatcher [employer] Elvis Oviedo RN RN sg Janki Kelley, FACETOR FACETOR oh Christina Pablo RN RN bb Wadley, Terrence, MD MD [facility] Corrections: (The following items were deleted from the chart) 04/15 10:08 10:06 IV Saline Lock ordered. [facility] 13:26 12:35 04/15/2019 12:35 Discharged to Home. Impression: Epigastric pain. Condition is Stable. Forms are SBAR form, Medication Reconciliation Form, Thank You Letter, Antibiotic Education, Prescription Opioid Use. Follow up: Private Physician; When: 2 - 3 days; Reason: Recheck today's complaints. Problem is new. Symptoms are unchanged. nh
--- NOTE | 2019-04-15 13:06 | RAD REPORT ---
EXAM DESCRIPTION: RAD - Chest Single View - 04/15/2019 10:26 am CLINICAL HISTORY: CHEST PAIN Chest pain. COMPARISON: <Comparisons> FINDINGS: Portable technique limits examination quality. Elevation of the right hemidiaphragm is seen, chronic. Diffuse COPD is present. The heart is normal i n size. Diffuse osteopenia. IMPRESSION: COPD.
[2019-04-15 13:33] VITALS: TEMP 98.7
[2019-04-15 13:37] VITALS: BP 145/84; O2SAT 98
--- NOTE | 2019-04-16 10:22 | EKG ---
Test Date: 2019-04-15 Test Time: 10:14:44 Research And Development Specialist: IZABELLA MEASUREMENT RESULTS: Intervals: Rate: 91 NV: 218 QRSD: 86 QT: 374 QTc: 460 [place]: P: 61 NV: 218 QRS: 50 T: 77 INTERPRETIVE STATEMENTS: Sinus rhythm with 1st degree AV block Anterior infarct, age undetermined Abnormal ECG Compared to ECG 04/10/2019 10:31:21 First degree AV block now present Sinus arrhythmia no longer present Myocardial infarct finding still present Electronically Signed On 04-16-19 10:22:38 CDT by Shahab Buck
--- NOTE | 2019-04-16 10:22 | EKG ---
Test Date: 2019-04-15 Test Time: 10:15:09 Electrifier Operator: IZABELLA MEASUREMENT RESULTS: Intervals: Rate: 92 [place]: 218 QRSD: 86 QT: 374 QTc: 462 [place]: P: 60 OK: 218 QRS: 42 T: 78 INTERPRETIVE STATEMENTS: Sinus rhythm with 1st degree AV block Anterior infarct, age undetermined Abnormal ECG Compared to ECG 04/15/2019 10:14:44 No significant changes Electronically Signed On 04-16-19 10:22:32 CDT by Shahab Buck
== END 2019-04-15 13:26 | disposition home or self-care (01) ==
LOC: ER 07:01
DX: R10.13 Epigastric pain (principal); F41.9 Anxiety disorder, unspecified; F32.9 Major depressive disorder, single episode, unspecified
CPT/HCPCS: 93005 ×2; 85025; 80048; 36415; 83735; 85610; 80076; 81003; 84484; 83690; 83880; 74177; 71045; 96374; 99285; J2270

== ENCOUNTER 2019-05-13 13:31 | Emergency (ER) | payer OTHER ==
--- OUTSIDE RECORDS SUMMARY | 2019-05-13 13:33 | XMS REPORT | Clinical Summary ---
:1930 [address] [facility] [employer] [facility] Address [address] [place] [id number] Care Team Providers Name Role Phone Cole [...] Not on file Results Not on fileafter 05/12/2018 Insurance Payer Benefit Plan / Group Subscriber ID Type Phone Address MEDICARE MEDICARE A B xxxxxxxxxx Medicare ([place]) [place] [address] Advance Directives For more information, please contact:[facility] [employer] [address] [phone] Code Status Date Activated Date Inactivated Comments Full Code 08/26/2016 12:31 AM 08/26/2016 5:56 PM This code status was determined by: Patient
[2019-05-13] MEDS ORDERED: PANTOPRAZOLE 40 MG INJ ONE (14:27)
[2019-05-13] MEDS ORDERED: ONDANSETRON 4 MG/2 ML VIAL ONE ×2 (14:27→16:53)
[2019-05-13] MEDS ORDERED: WATER FOR INJ,STERILE 10 ML ONE (14:28)
[2019-05-13 14:46] LABS: Absolute Lymphocytes (CBC) 1.6 K/uL (0.7-4.9); Basophils % 0.8 % (0-1.3); Hematocrit 35.4 % (36.0-45.0); Lymphocytes % 37.5 % (15.3-44.8); MPV 10.4 fL (7.6-11.3); RBC Red Blood Cell Count 3.61 M/uL (3.86-4.86)
[2019-05-13 14:49] LABS: Protime INR 1.04
[2019-05-13 15:05] LABS: ALT/SGPT 21 U/L (12-78); AST/SGOT 21 U/L (15-37); Albumin 3.6 g/dL (3.4-5.0); Alkaline Phosphatase 74 U/L (45-117); BUN Blood Urea Nitrogen 17 mg/dL (7-18); Bicarbonate 32 mmol/L (21-32); Bilirubin Direct 0.1 mg/dL (0-0.2); Bilirubin Total 0.4 mg/dL (0.2-1.0); Glucose Level 84 mg/dL (74-106); Lipase 101 U/L (73-393); Magnesium 2.4 mg/dL (1.8-2.4); NT PRO-BNP 143 pg/mL (<450); Potassium 4.2 mmol/L (3.5-5.1); Protein, Total 7.4 g/dL (6.4-8.2); Sodium Level 141 mmol/L (136-145); Troponin (Emerg Dept Use Only) < 0.02 ng/mL (0.0-0.045)
--- NOTE | 2019-05-13 16:56 | EKG ---
Test Date: 2019-05-13 Test Time: 13:39:08 Medical Office Specialist: KANE MEASUREMENT RESULTS: Intervals: Rate: 72 LA: 214 QRSD: 88 QT: 380 QTc: 416 [place]: P: 49 LA: 214 QRS: 5 T: 77 INTERPRETIVE STATEMENTS: Sinus rhythm with 1st degree AV block Possible Anterior infarct, age undetermined Abnormal ECG Compared to ECG 04/15/2019 10:15:09 No significant changes Electronically Signed On 05-13-19 16:55:48 CDT by Desmond Madison
[2019-05-13] MEDS ORDERED: clonazePAM 0.5 MG TAB ONE (17:08)
--- NOTE | 2019-05-13 17:09 | RAD REPORT ---
EXAM DESCRIPTION: Thaddeus Single View05/13/2019 2:37 pm CLINICAL HISTORY: Abdominal pain COMPARISON: March 2019 FINDINGS: Chronic elevation of the right hemidiaphragm The lungs appear clear of acute infiltrate. The heart is normal size IMPRESSION: No acute abnormalities displayed
--- NOTE | 2019-05-13 17:09 | RAD REPORT ---
EXAM DESCRIPTION: CT - Abdomen Pelvis W Contrast - 05/13/2019 4:30 pm CLINICAL HISTORY: Abdominal pain with nausea. COMPARISON: 04/15/2019 TECHNIQUE: Computed axial tomography of the abdomen pelvis was obtained. 100 cc Isovue-300 was admin istered intravenously. Oral contrast was not requested which limits evaluation of bowel. All CT scans are performed using dose optimization technique as appropriate and may include automated exposure control or mA/KV adjustment according to patient size. FINDINGS: The liver, spleen, pancreas, adrenal and right kidney appear unremarkable. 3 millimeter nonobstructing left renal calculus Multiple compression fractures involving lower thoracic and lumbar vertebra probably chronic. There is no evidence of diverticulitis. Moderate amount of stool throughout the colon IMPRESSION: Moderate amount of stool throughout the colon
--- NOTE | 2019-05-13 18:08 | ER ---
Nurse's Notes [facility] Name: Alessia Coombs Age: 88 yrs Sex: Female : 1930 Arrival Date: 05/13/2019 Time: 13:35 Bed 19 Private MD: Diagnosis: Epigastric pain Presentation: 05/13 13:36 Presenting complaint: EMS states: Pt c/o chest pain mud sternum since 3 days ago that ca1 is worse today. Pt had rib fracture sustained from a fall on July last year and she feels like it's the same pain. Transition of care: patient was not received from another setting of care. Onset of symptoms was May 13, 2019. Risk Assessment: Do you want to hurt yourself or someone else? Patient reports no desire to harm self or others. Initial Sepsis Screen: Does the patient meet any 2 criteria? No. Patient's initial sepsis screen is negative. Does the patient have a suspected source of infection? No. Patient's initial sepsis screen is negative. Care prior to arrival: None. 13:36 Method Of Arrival: EMS: [facility] ca1 13:36 Acuity: LAURYN 3 ca1 Triage Assessment: 13:39 General: Appears in no apparent distress. slender, Behavior is calm, cooperative, ca1 appropriate for age. Pain: Complains of pain in mid-sternal area Pain does not radiate. Pain currently is 8 out of 10 on a pain scale. Pain began 2-3 days ago. Cardiovascular: Heart tones S1 S2 present Capillary refill < 3 seconds Patient's skin is warm and dry. Pulses Rhythm is sinus rhythm. Historical: - Allergies: 16:10 Codeine; tw2 - Home Meds: 13:39 Amitriptyline 20 mg, two tabs at night Oral [Active]; citalopram 40 mg tab 1 tab once ca1 daily [Active]; Tylenol #3 Oral [Active]; Clonazepam Oral as needed [Active]; - PMHx: 13:39 Anxiety; Chronic pain; Depression; Rib Fracture; ca1 - Immunization history:: Adult Immunizations up to date. - Social history:: Smoking status: Patient/guardian denies using tobacco. - Ebola Screening: : Patient negative for fever greater than or equal to 101.5 degrees Fahrenheit, and additional compatible Ebola Virus Disease symptoms Patient denies exposure to infectious person Patient denies travel to an Ebola-affected area in the 21 days before illness onset No symptoms or risks identified at this time. Screenin:42 Abuse screen: Denies threats or abuse. Denies injuries from another. Nutritional ca1 screening: No deficits noted. Tuberculosis screening: No symptoms or risk factors identified. Fall Risk Fall in past 12 months (25 points). IV access (20 points). Ambulatory Aid- Crutches/Cane/Walker (15 pts). Gait- Weak (10 pts.). Total Taylor Fall Scale indicates High Risk Score (45 or more points). Fall prevention measures have been instituted. Side Rails Up X 2 Frequent Obs/Assessments Occuring Family Present and informed to notify staff if the need to leave the bedside As available patient and family educated on Fall Prevention Program and Strategies. Assessment: 13:45 General: Appears in no apparent distress. comfortable, Behavior is calm, cooperative, ca1 appropriate for age. Pain: Complains of pain in mid-sternal area Pain does not radiate. Pain currently is 8 out of 10 on a pain scale. Quality of pain is described as crushing, Pain began 2-3 days ago. Is intermittent, Aggravated by eating. Neuro: Level of Consciousness is awake, alert, obeys commands, Oriented to person, place, time, situation. Cardiovascular: Heart tones S1 S2 present Capillary refill < 3 seconds Patient's skin is warm and dry. Rhythm is sinus rhythm. Respiratory: Airway is patent Respiratory effort is even, unlabored, Respiratory pattern is regular, symmetrical, Breath sounds are clear bilaterally. GI: Abdomen is flat, non-distended, Bowel sounds present X 4 quads. Abd is soft and non tender X 4 quads. Reports intolerance of food, nausea, vomiting, since a week now. : No deficits noted. No signs and/or symptoms were reported regarding the genitourinary system. EENT: No deficits noted. No signs and/or symptoms were reported regarding the EENT system. Derm: Skin is intact, is fragile, is thin, Skin is pink, warm \T\ dry. Musculoskeletal: Circulation, motion, and sensation intact. Capillary refill < 3 seconds. 14:42 Reassessment: Patient appears in no apparent distress at this time. Patient and/or ca1 family updated on plan of care and expected duration. Pain level reassessed. Patient is alert, oriented x 3, equal unlabored respirations, skin warm/dry/pink. 15:33 Reassessment: Patient appears in no apparent distress at this time. Patient and/or ca1 family updated on plan of care and expected duration. Pain level reassessed. Patient is alert, oriented x 3, equal unlabored respirations, skin warm/dry/pink. 16:38 Reassessment: Patient appears in no apparent distress at this time. Patient and/or ca1 family updated on plan of care and expected duration. Pain level reassessed. Patient is alert, oriented x 3, equal unlabored respirations, skin warm/dry/pink. Pt back from CT scan. 16:59 Reassessment: PT C/O nausea. Notified provider. Order given. ca1 17:11 Reassessment: Pt and daughter request Clonazepam for pt's anxiety. Reports pt takes it ca1 at home at this time. Notified provider. Orders given. Vital Signs: 13:39 BP 148 / 84; Pulse 82; Resp 14 S; Temp 99.3(O); Pulse Ox 95% on R/A; Weight 48.08 kg ca1 (R); Height 5 ft. 2 in. (157.48 cm) (R); Pain 8/10; 14:42 BP 150 / 81; Pulse 75; Resp 20 S; Pulse Ox 94% on R/A; ca1 15:33 BP 133 / 69; Pulse 80; Resp 19 S; Pulse Ox 94% on R/A; ca1 16:38 BP 147 / 72; Pulse 83; Resp 16 S; Pulse Ox 95% on R/A; ca1 17:45 BP 137 / 70; Pulse 89; Resp 18 S; Pulse Ox 95% on R/A; ca1 13:39 Body Mass Index 19.39 (48.08 kg, 157.48 cm) ca1 ED Course: 13:35 Patient arrived in ED. ca1 13:37 Triage completed. ca1 13:39 Arm band placed on. EKG completed in triage. Results shown to MD. ca1 13:40 EKG done, by ED staff, reviewed by Chaparro Wilson MD. dh3 13:42 Patient maintains SpO2 saturation greater than 95% on room air. ca1 13:42 Patient has correct armband on for positive identification. Placed in gown. Bed in low ca1 position. Call light in reach. Side rails up X2. quality assurance monitor body on. Pulse ox on. NIBP on. Warm blanket given. 13:44 Edita Lindsey, ILYA is Primary Nurse. ca1 14:08 Micah Leblanc PA is PHCP. cp 14:08 Chaparro Wilson MD is Attending Physician. cp 14:38 XRAY Chest (1 view) In Process Unspecified. EDMS 14:40 Inserted saline lock: 20 gauge in right antecubital area, using aseptic technique. ca1 Blood collected. 16:29 CT completed. Patient tolerated procedure well. Patient moved back from CT. bq 16:31 CT Abd/Pelvis - IV Contrast Only In Process Unspecified. EDMS 17:44 Troponin (emerg Dept Use Only) Sent. ca1 18:07 Arnold Cardoso MD is Referral Physician. cp 18:27 No provider procedures requiring assistance completed. IV discontinued, intact, ca1 bleeding controlled, No redness/swelling at site. Pressure dressing applied. Administered Medications: 14:40 Drug: ProTONIX 40 mg Route: IVP; Site: right antecubital; ca1 16:00 Follow up: Response: No adverse reaction ca1 14:41 Drug: Zofran 4 mg Route: IVP; Site: right antecubital; ca1 16:00 Follow up: Response: No adverse reaction ca1 17:00 Drug: Zofran 4 mg Route: IVP; Site: right antecubital; ca1 17:44 Follow up: Response: No adverse reaction; Nausea is decreased ca1 17:13 Drug: clonazePAM 0.5 mg Route: PO; ca1 17:44 Follow up: Response: No adverse reaction; Anxiety decreased ca1 Outcome: 18:07 Discharge ordered by MD. cp 18:27 Discharged to home via wheelchair, with family. ca1 18:27 Condition: stable 18:27 Discharge instructions given to patient, Daughter Instructed on discharge instructions, follow up and referral plans. medication usage, Demonstrated understanding of instructions, follow-up care, medications, Prescriptions given X 2. 18:27 Patient left the ED. ca1 Signatures: Dispatcher [employer] EDMS Melissa Brennan Corey, PA PA cp Wise, Tara, RN RN tw2 Denae Nazario dh3 Edita Lindsey RN RN ca1 Corrections: (The following items were deleted from the chart) 13:40 13:36 Presenting complaint: states: Pt c/o chest pain mud sternum since 3 days ca1 ago that is worse today. Pt had rib fracture on July last year and she feels like it's the same pain. ca1 16:10 13:39 Allergies: NKDA; ca1 tw2
--- NOTE | 2019-05-13 18:09 | EDPHYS ---
Physician Documentation [facility] Name: Alessia Coombs Age: 88 yrs Sex: Female : 1930 Arrival Date: 05/13/2019 Time: 13:35 Bed 19 Private MD: ED Physician Chaparro Wilson HPI: 05/13 14:15 This 88 yrs old Female presents to ER via EMS with complaints of Chest Pain. cp 14:15 The patient presents with abdominal pain in the epigastric area. Onset: The cp symptoms/episode began/occurred suddenly, this morning, and improved just prior to arrival, after taking pain medication [employer]. The symptoms radiate to left lower chest and left upper abdomen. Associated signs and symptoms: Pertinent negatives: anorexia, blood in stools, constipation, diarrhea, fever, shortness of breath, vomiting. The symptoms are described as sharp. Severity of pain: in the emergency department the pain has improved markedly. The patient has experienced similar episodes in the past, multiple times, but today's symptoms are worse, more painful. Historical: - Allergies: 16:10 Codeine; tw2 - Home Meds: 13:39 Amitriptyline 20 mg, two tabs at night Oral [Active]; citalopram 40 mg tab 1 tab once ca1 daily [Active]; Tylenol #3 Oral [Active]; Clonazepam Oral as needed [Active]; - PMHx: 13:39 Anxiety; Chronic pain; Depression; Rib Fracture; ca1 - Immunization history:: Adult Immunizations up to date. - Social history:: Smoking status: Patient/guardian denies using tobacco. - Ebola Screening: : Patient negative for fever greater than or equal to 101.5 degrees Fahrenheit, and additional compatible Ebola Virus Disease symptoms Patient denies exposure to infectious person Patient denies travel to an Ebola-affected area in the 21 days before illness onset No symptoms or risks identified at this time. ROS: 14:20 Constitutional: Negative for body aches, chills, fever, poor PO intake. cp 14:20 Eyes: Negative for injury, pain, redness, and discharge. cp 14:20 ENT: Positive for difficulty swallowing, Negative for drainage from ear(s), ear pain, sore throat, difficulty handling secretions. 14:20 Cardiovascular: Positive for chest pain, Negative for edema, palpitations. 14:20 Respiratory: Negative for cough, shortness of breath, wheezing. 14:20 Abdomen/GI: Positive for abdominal pain, of the epigastric area and left upper quadrant, Negative for vomiting, diarrhea, constipation, black/tarry stool, rectal bleeding. 14:20 Back: Negative for radiated pain. 14:20 : Negative for urinary symptoms. 14:20 Skin: Negative for cellulitis, rash. 14:20 Neuro: Negative for altered mental status, headache, syncope, weakness. 14:20 All other systems are negative. Exam: 13:45 ECG was reviewed by the Attending Physician. cp 14:25 Constitutional: The patient appears in no acute distress, alert, awake, cp non-diaphoretic, non-toxic, well developed, frail. 14:25 Head/Face: Normocephalic, atraumatic. Eyes: Pupils equal round and reactive to light, cp extra-ocular motions intact. Lids and lashes normal. Conjunctiva and sclera are non-icteric and not injected. Cornea within normal limits. Periorbital areas with no swelling, redness, or edema. ENT: Nares patent. No nasal discharge, no septal abnormalities noted. Tympanic membranes are normal and external auditory canals are clear. Oropharynx with no redness, swelling, or masses, exudates, or evidence of obstruction, uvula midline. Mucous membranes moist. Chest/axilla: Normal chest wall appearance and motion. Nontender with no deformity. No lesions are appreciated. 14:25 Cardiovascular: Rate: normal, Rhythm: regular, Heart sounds: rub, not appreciated, gallop, not appreciated, Edema: is not appreciated, JVD: is not appreciated. 14:25 Respiratory: the patient does not display signs of respiratory distress, Respirations: normal, no use of accessory muscles, no retractions, no splinting, no tachypnea, labored breathing, is not present, Breath sounds: are clear throughout, no decreased breath sounds, no stridor, no wheezing. 14:25 Abdomen/GI: Inspection: abdomen appears normal, Bowel sounds: active, all quadrants, Palpation: soft, in all quadrants, mild abdominal tenderness, in the epigastric area and left upper quadrant, rebound tenderness, is not appreciated, voluntary guarding, is not appreciated, involuntary guarding, is not appreciated. 14:25 Back: pain, is absent, ROM is normal. 14:25 Skin: no rash present. 14:25 Neuro: Orientation: to person, place \T\ time. Mentation: is normal, Motor: moves all fours, strength is normal. Vital Signs: 13:39 BP 148 / 84; Pulse 82; Resp 14 S; Temp 99.3(O); Pulse Ox 95% on R/A; Weight 48.08 kg ca1 (R); Height 5 ft. 2 in. (157.48 cm) (R); Pain 8/10; 14:42 BP 150 / 81; Pulse 75; Resp 20 S; Pulse Ox 94% on R/A; ca1 15:33 BP 133 / 69; Pulse 80; Resp 19 S; Pulse Ox 94% on R/A; ca1 16:38 BP 147 / 72; Pulse 83; Resp 16 S; Pulse Ox 95% on R/A; ca1 17:45 BP 137 / 70; Pulse 89; Resp 18 S; Pulse Ox 95% on R/A; ca1 13:39 Body Mass Index 19.39 (48.08 kg, 157.48 cm) ca1 MDM: 14:10 Patient medically screened. cp 18:06 Data reviewed: vital signs, nurses notes, lab test result(s), EKG, radiologic studies, cp CT scan, plain films, and as a result, I will discharge patient. 18:06 Test interpretation: by ED physician or midlevel provider: ECG, plain radiologic cp studies. Response to treatment: the patient's symptoms have markedly improved after treatment. ED course: VSS. No complaints of chest pain while in ED. Low suspicion pain is cardiac in origin. Initial and repeat EKGs and troponin negative. Will discharge to home for continued monitoring. Daughter reports patient has GI appointment next week. 05/13 14:18 Order name: Basic Metabolic Panel cp 05/13 14:18 Order name: CBC with Diff cp 05/13 14:18 Order name: LFT's; Complete Time: 15:51 cp 05/13 17:16 Interpretation: Normal except: GLOB 3.8; A/G 0.9. cp 05/13 14:18 Order name: Magnesium; Complete Time: 15:51 cp 05/13 14:18 Order name: NT PRO-BNP; Complete Time: 15:51 cp 05/13 14:18 Order name: PT-INR; Complete Time: 15:51 cp 08/18 14:18 Order name: Troponin (emerg Dept Use Only); Complete Time: 15:51 cp /18 17:17 Interpretation: TROPED < 0.02; Reviewed. cp / 14:18 Order name: XRAY Chest (1 view); Complete Time: 17:14 cp /18 14:18 Order name: Lipase; Complete Time: 15:51 cp /18 14:18 Order name: Basic Metabolic Panel; Complete Time: 15:51 EDMS 18 17:16 Interpretation: Normal except: GFR 83. cp /18 14:19 Order name: CBC with Automated Diff; Complete Time: 15:51 EDMS /18 17:17 Interpretation: Normal except: RBC 3.61; HGB 11.4; HCT 35.4; PLT 136. cp /18 15:52 Order name: CT Abd/Pelvis - IV Contrast Only; Complete Time: 17:14 cp /18 17:30 Order name: Troponin (emerg Dept Use Only) ca1 / 14:08 Order name: EKG; Complete Time: 14:09 cp 18 14:08 Order name: EKG - Nurse/Tech; Complete Time: 14:10 cp /18 14:18 Order name: Cardiac monitoring; Complete Time: 14:25 cp /18 14:18 Order name: IV Saline Lock; Complete Time: 14:41 cp /18 14:18 Order name: Labs collected and sent; Complete Time: 14:41 cp /18 14:18 Order name: O2 Per Protocol; Complete Time: 14:25 cp /18 14:18 Order name: O2 Sat Monitoring; Complete Time: 14:25 cp 18 17:30 Order name: EKG; Complete Time: 17:31 ca1 /18 17:30 Order name: EKG - Nurse/Tech; Complete Time: 17:43 ca1 EC:45 Rate is 72 beats/min. Rhythm is regular. NH interval is prolonged at 214 msec. QRS cp interval is normal. QT interval is normal. Interpreted by me. Reviewed by me. Administered Medications: 14:40 Drug: ProTONIX 40 mg Route: IVP; Site: right antecubital; ca1 16:00 Follow up: Response: No adverse reaction ca1 14:41 Drug: Zofran 4 mg Route: IVP; Site: right antecubital; ca1 16:00 Follow up: Response: No adverse reaction ca1 17:00 Drug: Zofran 4 mg Route: IVP; Site: right antecubital; ca1 17:44 Follow up: Response: No adverse reaction; Nausea is decreased ca1 17:13 Drug: clonazePAM 0.5 mg Route: PO; ca1 17:44 Follow up: Response: No adverse reaction; Anxiety decreased ca1 Disposition: 05/13/19 18:07 Discharged to Home. Impression: Epigastric pain. - Condition is Stable. - Discharge Instructions: Abdominal Pain, Adult. - Prescriptions for Protonix 40 mg Oral Tablet - take 1 tablet by ORAL route once daily; 30 tablet. Zofran 4 mg Oral Tablet - take 1 tablet by ORAL route every 12 hours As needed; 20 tablet. - Medication Reconciliation Form, Thank You Letter, Antibiotic Education, Prescription Opioid Use form. - Follow up: Arnold Cardoso MD; When: 1 - 2 days; Reason: Recheck today's complaints. - Problem is new. - Symptoms have improved. Addendum: 05/15/2019 15:35 Co-signature as Attending Physician, Chaparro Wilson MD. g s Signatures: Dispatcher [employer] EDMS Micah eLblanc PA PA cp Gris Durham RN RN tw2 Chaparro Wilson MD MD Edita Lindsey RN RN ca1 Corrections: (The following items were deleted from the chart) 05/13 16:10 13:39 Allergies: NKDA; ca1 tw2 18:27 18:07 05/13/2019 18:07 Discharged to Home. Impression: Epigastric pain. Condition is ca1 Stable. Forms are Medication Reconciliation Form, Thank You Letter, Antibiotic Education, Prescription Opioid Use. Follow up: Arnold Cardoso; When: 1 - 2 days; Reason: Recheck today's complaints. Problem is new. Symptoms have improved. cp
[2019-05-13 19:20] VITALS: TEMP 99.3
[2019-05-13 19:24] VITALS: O2SAT 95
[2019-05-13 19:25] VITALS: BP 137/70
--- NOTE | 2019-05-14 10:00 | EKG ---
Test Date: 2019-05-13 Test Time: 17:38:16 Soda Worker: SHEILA MEASUREMENT RESULTS: Intervals: Rate: 93 TX: 222 QRSD: 82 QT: 374 QTc: 465 [place]: P: 74 TX: 222 QRS: 10 T: 68 INTERPRETIVE STATEMENTS: Sinus rhythm with 1st degree AV block Possible Anterior infarct, age undetermined Abnormal ECG Compared to ECG 05/13/2019 13:39:08 No significant changes Electronically Signed On 05-14-19 09:59:47 CDT by Shahab Buck
== END 2019-05-13 18:27 | disposition home or self-care (01) ==
LOC: ER 13:31
DX: R10.13 Epigastric pain (principal); F41.9 Anxiety disorder, unspecified; F32.9 Major depressive disorder, single episode, unspecified; Z88.5 Allergy status to narcotic agent
CPT/HCPCS: 93005 ×2; 85025; 80048; 36415; 83735; 85610; 80076; 84484 ×2; 83690; 83880; 74177; 71045; Q9967; C9113; J2405 ×2

== ENCOUNTER 2019-07-01 11:11 | Emergency (ER) | payer OTHER ==
[2019-07-01] MEDS ORDERED: DIAZEPAM 2 MG TABLET ONE (12:00)
--- NOTE | 2019-07-01 12:30 | EDPHYS ---
Physician Documentation [facility] Name: Alessia Coombs Age: 89 yrs Sex: Female : 1930 Arrival Date: 07/01/2019 Time: 11:19 Bed 13 Private MD: ED Physician Salvatore Oconnor HPI: 07/01 11:52 This 89 yrs old Female presents to ER via EMS with complaints of Depression, rn Depression medications was recently changed. 11:52 The patient presents to the emergency department with depression. Onset: The rn symptoms/episode began/occurred at an unknown time. Severity of symptoms: At their worst the symptoms were moderate in the emergency department the symptoms are unchanged. The patient has experienced similar episodes in the past, chronically. Reports clonazepam and amitriptyline stopped Tuesday, switched to abilify, and has felt more depressed lately, no focal problem or medical complaint. States on other meds for years, and has only had 3 doses of abilify. Switched by Dr. Jennings because felt her original medications weren't working anymore. . Historical: - Allergies: 11:25 Codeine; rb1 - Home Meds: 11:25 Amitriptyline 20 mg, two tabs at night Oral [Active]; citalopram 40 mg tab 1 tab once rb1 daily [Active]; Tylenol #3 Oral [Active]; Abilify oral oral [Active]; - PMHx: 11:25 Anxiety; Chronic pain; Depression; Rib Fracture; rb1 - Immunization history:: Adult Immunizations up to date. - Social history:: Smoking status: Patient/guardian denies using tobacco. - Ebola Screening: : Patient negative for fever greater than or equal to 101.5 degrees Fahrenheit, and additional compatible Ebola Virus Disease symptoms. - Family history:: not pertinent. - Hospitalizations: : No recent hospitalization is reported. ROS: 11:52 Constitutional: Negative for fever, chills, and weight loss, Eyes: Negative for injury, rn pain, redness, and discharge, Neck: Negative for injury, pain, and swelling, Cardiovascular: Negative for chest pain, palpitations, and edema, Respiratory: Negative for shortness of breath, cough, wheezing, and pleuritic chest pain, Abdomen/GI: Negative for abdominal pain, nausea, vomiting, diarrhea, and constipation, MS/Extremity: Negative for injury and deformity, Skin: Negative for injury, rash, and discoloration, Neuro: Negative for headache, weakness, numbness, tingling, and seizure, Psych: Negative for suicide ideation, homicidal ideation, and hallucinations. Exam: 11:52 Constitutional: This is a well developed, well nourished patient who is awake, alert, rn and in no acute distress. Head/Face: Normocephalic, atraumatic. Eyes: Pupils equal round and reactive to light, extra-ocular motions intact. Lids and lashes normal. Conjunctiva and sclera are non-icteric and not injected. Cornea within normal limits. Periorbital areas with no swelling, redness, or edema. ENT: MMM Cardiovascular: Regular rate and rhythm. No pulse deficits. Respiratory: Lungs have equal breath sounds bilaterally, clear to auscultation. No increased work of breathing, no retractions or nasal flaring. Abdomen/GI: soft, non-tender MS/ Extremity: Pulses equal, no cyanosis. Neurovascular intact. Full, normal range of motion. Equal circumference. Neuro: Awake and alert, GCS 15, oriented to person, place, time, and situation. Cranial nerves II-XII grossly intact. Motor strength 5/5 in all extremities. Sensory grossly intact. Vital Signs: 11:10 BP 142 / 60; Pulse 86; Resp 16; Temp 98.8(O); Pulse Ox 97% on R/A; Weight 46.27 kg (R); rb1 Height 5 ft. 2 in. (157.48 cm) (R); Pain 8/10; 12:00 BP 132 / 59; Pulse 80; Resp 17; Pulse Ox 98% on R/A; Pain 6/10; rb1 13:00 BP 126 / 59; Pulse 75; Resp 17; Temp 98.6(O); Pulse Ox 98% on R/A; Pain 6/10; rb1 14:00 BP 154 / 82; Pulse 76; Resp 16; Pulse Ox 96% on R/A; Pain 6/10; rb1 11:10 Body Mass Index 18.66 (46.27 kg, 157.48 cm) rb1 11:10 chronic back pain rb1 MDM: 11:22 Patient medically screened. rn 12:28 Differential diagnosis: depression. Data reviewed: vital signs, nurses notes, and as a rn result, I will discharge patient. Counseling: I had a detailed discussion with the patient and/or guardian regarding: the historical points, exam findings, and any diagnostic results supporting the discharge/admit diagnosis, the need for outpatient follow up, to return to the emergency department if symptoms worsen or persist or if there are any questions or concerns that arise at home. Response to treatment: the patient's symptoms have mildly improved after treatment, and as a result, I will discharge patient. Special discussion: I discussed with the patient/guardian in detail that at this point there is no indication for admission to the hospital. It is understood, however, that if the symptoms persist or worsen the patient needs to return immediately for re-evaluation. Based on the history and exam findings, there is no indication for further emergent testing or inpatient evaluation. I discussed with the patient/guardian the need to see the primary care provider for further evaluation of the symptoms. ED course: Told patient could add a few valium to help her sleep and come off of her other meds she was taking and abruptly stopped. Recommended pcp f/u for medication adjustment and further recommendations. . Administered Medications: 12:03 Drug: Valium 2 mg Route: PO; rb1 12:40 Follow up: Response: No adverse reaction; Anxiety decreased rb1 Disposition: 07/01/19 12:29 Discharged to Home. Impression: Major depressive disorder, recurrent severe without psychotic features. - Condition is Stable. - Discharge Instructions: Persistent Depressive Disorder, Major Depressive Disorder, [id number]. - Prescriptions for clonazepam 1 mg Oral tablet - take 1 tablet by ORAL route 2 times per day As needed; 10 tablet. - Medication Reconciliation Form, Thank You Letter, Antibiotic Education, Prescription Opioid Use form. - Follow up: Private Physician; When: As needed; Reason: Recheck today's complaints, Re-evaluation by your physician. - Problem is chronic. - Symptoms have improved. Signatures: Salvatore Oconnor MD MD rn Barber, Rebecca, RN RN rb1 Corrections: (The following items were deleted from the chart) 15:04 12:29 07/01/2019 12:29 Discharged to Home. Impression: Major depressive disorder, rb1 recurrent severe without psychotic features. Condition is Stable. Forms are Medication Reconciliation Form, Thank You Letter, Antibiotic Education, Prescription Opioid Use. Follow up: Private Physician; When: As needed; Reason: Recheck today's complaints, Re-evaluation by your physician. Problem is chronic. Symptoms have improved. rn
--- NOTE | 2019-07-01 12:30 | ER ---
Nurse's Notes [facility] Name: Alessia Coombs Age: 89 yrs Sex: Female : 1930 Arrival Date: 07/01/2019 Time: 11:19 Bed 13 Private MD: Diagnosis: Major depressive disorder, recurrent severe without psychotic features Presentation: 07/01 11:10 Presenting complaint: EMS states: Pt. is feeling depressed, denies suicidal ideation. rb1 Depression medication has been recently changed to Abilify and it is not working per pt. report. Vital signs are stable. History of anxiety and depression. Transition of care: patient was not received from another setting of care. Onset of symptoms was July 01, 2019. Risk Assessment: Do you want to hurt yourself or someone else? Patient reports no desire to harm self or others. Initial Sepsis Screen: Does the patient meet any 2 criteria? No. Patient's initial sepsis screen is negative. Does the patient have a suspected source of infection? No. Patient's initial sepsis screen is negative. Care prior to arrival: None. 11:10 Method Of Arrival: EMS: [facility] rb1 11:10 Acuity: LAURYN 4 rb1 Triage Assessment: 11:25 General: Appears in no apparent distress. comfortable, Behavior is calm, cooperative, rb1 Denies feeling ill. General: PT. depression was recently changed to Abilify and she reports that it is not working as well as Clonazepam. Denies suicidal/homicidal ideation. Pain: Complains of pain in back Pain currently is 8 out of 10 on a pain scale. Pain began chronic back pain. Neuro: Level of Consciousness is awake, alert, obeys commands, Oriented to person, place, time, situation. Cardiovascular: Capillary refill < 3 seconds is brisk in bilateral fingers. Respiratory: Airway is patent Respiratory effort is even, unlabored, Respiratory pattern is regular, symmetrical. GI: No signs and/or symptoms were reported involving the gastrointestinal system. : No signs and/or symptoms were reported regarding the genitourinary system. Derm: Skin is pink, warm \T\ dry. Musculoskeletal: Range of motion: intact in all extremities. Historical: - Allergies: 11:25 Codeine; rb1 - Home Meds: 11:25 Amitriptyline 20 mg, two tabs at night Oral [Active]; citalopram 40 mg tab 1 tab once rb1 daily [Active]; Tylenol #3 Oral [Active]; Abilify oral oral [Active]; - PMHx: 11:25 Anxiety; Chronic pain; Depression; Rib Fracture; rb1 - Immunization history:: Adult Immunizations up to date. - Social history:: Smoking status: Patient/guardian denies using tobacco. - Ebola Screening: : Patient negative for fever greater than or equal to 101.5 degrees Fahrenheit, and additional compatible Ebola Virus Disease symptoms. - Family history:: not pertinent. - Hospitalizations: : No recent hospitalization is reported. Screenin:10 Abuse screen: Denies threats or abuse. Nutritional screening: No deficits noted. rb1 Tuberculosis screening: No symptoms or risk factors identified. Fall Risk None identified. Assessment: 11:25 General: See triage assessment. rb1 12:20 Reassessment: Patient appears in no apparent distress at this time. Patient and/or rb1 family updated on plan of care and expected duration. Pain level reassessed. Patient is alert, oriented x 3, equal unlabored respirations, skin warm/dry/pink. 12:45 Reassessment: Discharge pending due to transportation home. rb1 13:20 Reassessment: Patient appears in no apparent distress at this time. No changes from rb1 previously documented assessment. 14:20 Reassessment: Patient appears in no apparent distress at this time. Patient and/or rb1 family updated on plan of care and expected duration. Pain level reassessed. Patient is alert, oriented x 3, equal unlabored respirations, skin warm/dry/pink. 14:26 Reassessment: Spoke to anna Baez. daughter, family is on their way to pickling solution maker the pt. rb1 14:45 Reassessment: Patient appears in no apparent distress at this time. Patient and/or rb1 family updated on plan of care and expected duration. Pain level reassessed. Patient is alert, oriented x 3, equal unlabored respirations, skin warm/dry/pink. Psych: 11:30 Subjective: Patient's mood is sad, Delusions are denied, Hallucinations are denied rb1 Having thoughts of Would like to be put back on her Clonazepam because the Abilify isn't working. Objective: Patient is cooperative, Speech is normal, Affect is appropriate. Suicide Risk Assessment: Sad Person Scale: Sex of patient: Female: Score 0 points. Age of patient: Score 0 point if patient falls outside of specified age parameters. Depression: Score 1 point if signs of depression are present. Previous Attempt: Substance Abuse: Score 0 point if patient does not abuse alcohol or drugs. Rational Thinking: Score 0 point if patient has rational thinking. Social Support: Score 0 if social support is present/available. Organized Plan: Score 0 if patient did not have an organized plan in place. Chronic Sickness: Score 1 point if patient has illness, chronic, debilitating, or severe. TOTAL POINTS: If total points are 0-2, proposed clinical action is to send home with follow-up. Pt denies substance abuse. Vital Signs: 11:10 BP 142 / 60; Pulse 86; Resp 16; Temp 98.8(O); Pulse Ox 97% on R/A; Weight 46.27 kg (R); rb1 Height 5 ft. 2 in. (157.48 cm) (R); Pain 8/10; 12:00 BP 132 / 59; Pulse 80; Resp 17; Pulse Ox 98% on R/A; Pain 6/10; rb1 13:00 BP 126 / 59; Pulse 75; Resp 17; Temp 98.6(O); Pulse Ox 98% on R/A; Pain 6/10; rb1 14:00 BP 154 / 82; Pulse 76; Resp 16; Pulse Ox 96% on R/A; Pain 6/10; rb1 11:10 Body Mass Index 18.66 (46.27 kg, 157.48 cm) rb1 11:10 chronic back pain rb1 ED Course: 11:10 Patient has correct armband on for positive identification. Bed in low position. Call rb1 light in reach. Side rails up X2. Pulse ox on. NIBP on. Warm blanket given. 11:19 Patient arrived in ED. rb1 11:22 Salvatore Oconnor MD is Attending Physician. rn 11:23 Triage completed. rb1 11:25 Arm band placed on right wrist. rb1 11:58 Eliana Carvalho, ILYA is Primary Nurse. rb1 15:04 No provider procedures requiring assistance completed. Patient did not have IV access rb1 during this emergency room visit. Administered Medications: 12:03 Drug: Valium 2 mg Route: PO; rb1 12:40 Follow up: Response: No adverse reaction; Anxiety decreased rb1 Outcome: 12:29 Discharge ordered by . rn 15:04 Patient left the ED. rb1 15:04 Discharged to home via wheelchair, with family. rb1 15:04 Condition: stable 15:04 Discharge instructions given to patient, Instructed on discharge instructions, follow up and referral plans. medication usage, Demonstrated understanding of instructions, follow-up care, medications, Prescriptions given X 1. Signatures: Salvatore Oconnor MD MD rn Barber, Rebecca, RN RN rb1
[2019-07-01 15:31] VITALS: TEMP 98.6
[2019-07-01 15:32] VITALS: BP 154/82; O2SAT 96
== END 2019-07-01 15:04 | disposition home or self-care (01) ==
LOC: ER 11:11
DX: F30.13 Manic episode, severe, without psychotic symptoms (principal); Z88.6 Allergy status to analgesic agent
CPT/HCPCS: 99284

== ENCOUNTER 2019-08-25 15:19 | Emergency (ER) | payer OTHER ==
--- OUTSIDE RECORDS SUMMARY | 2019-08-25 15:21 | XMS REPORT ---
:1930 [facility] Address [address] Khan [address] [place] [id number] Care Team Providers Name Role Phone Unavailable Unavailable Unavailable Problems This patient has no known problems. Allergies, Adverse Reactions, Alerts This patient has no known allergies or adverse reactions. Medications This patient has no known medications.
--- NOTE | 2019-08-25 16:13 | RAD REPORT ---
EXAM DESCRIPTION: CT - Head C Spine Mpr Wo Con - 08/25/2019 3:38 pm CLINICAL HISTORY: Head and neck injury status post fall. Head and neck pain COMPARISON: 2013 TECHNIQUE: Computed axial tomography of the head and cervical spine was obtained. Sagittal and coronal reconstruction was performed. All CT scans are performed using dose optimization technique as appropriate and may include automated exposure control or mA/KV adjustment according to patient size. FINDINGS: Frontal scalp swelling. No skull fracture is seen. Mild to moderate low-density areas within periventricular, deep and subcortical white matter likely i schemic changes secondary to small vessel disease An intracranial bleed is not seen. The ventricles are normal in caliber. An extra-axial fluid collect ion is not noted.Fluid within the visualized sinuses and mastoids is not seen Minimally displaced fracture involves the left lamina of C1. . No dislocation is noted. IMPRESSION: No acute intracranial abnormality is seen. Minimally displaced fracture involves the left lamina of C1. If the patient continues to have symptoms to suggest intracranial /spinal cord pathology then MRI wou ld be recommended Robyn of the emergency room was notified for 4:03 p.m. August 25, 2019
--- NOTE | 2019-08-25 16:19 | RAD REPORT ---
EXAM DESCRIPTION: CT - Facial Bones W/ Mpr - 08/25/2019 4:02 pm CLINICAL HISTORY: Facial injury status post fall COMPARISON: none TECHNIQUE: Computed axial tomography of the face was obtained. Coronal and sagittal reconstruction w as performed. All CT scans are performed using dose optimization technique as appropriate and may include automated exposure control or mA/KV adjustment according to patient size. FINDINGS: A chip fracture involves the nasal bone. A TMJ dislocation is not noted. The globes are intact. Fluid within the sinuses is not seen. IMPRESSION: Chip fracture involves the nasal bone of indeterminate age
[2019-08-25 16:32] LABS: Protime INR 0.99
[2019-08-25 16:44] LABS: ALT/SGPT 33 U/L (12-78); AST/SGOT 28 U/L (15-37); Albumin 3.5 g/dL (3.4-5.0); Alkaline Phosphatase 84 U/L (45-117); BUN Blood Urea Nitrogen 14 mg/dL (7-18); Bicarbonate 28 mmol/L (21-32); Bilirubin Direct 0.1 mg/dL (0-0.2); Bilirubin Total 0.6 mg/dL (0.2-1.0); CKMB Creatine Kinase MB 2.1 ng/mL (0.3-3.6); Creatine Phosphokinase 87 U/L (26-192); Glucose Level 100 mg/dL (74-106); Lipase 126 U/L (73-393); Potassium 3.8 mmol/L (3.5-5.1); Protein, Total 7.2 g/dL (6.4-8.2); Sodium Level 136 mmol/L (136-145); Troponin (Emerg Dept Use Only) < 0.02 ng/mL (0.0-0.045)
[2019-08-25] MEDS ORDERED: clonazePAM 0.5 MG TAB ONE (16:48)
[2019-08-25] MEDS ORDERED: CODEINE 30MG/APAP 300MG TAB ONE (16:48)
--- NOTE | 2019-08-25 16:50 | RAD REPORT ---
EXAM DESCRIPTION: Thaddeus Single View08/25/2019 4:11 pm CLINICAL HISTORY: Chest pain COMPARISON: April 2019 FINDINGS: The lungs appear clear of acute infiltrate. The heart is normal size. Elevation right hem idiaphragm is unchanged Old humeral fractures are present IMPRESSION: No acute abnormalities displayed
--- NOTE | 2019-08-25 17:29 | ER ---
Nurse's Notes [facility] Name: Alessia Coombs Age: 89 yrs Sex: Female : 1930 Arrival Date: 08/25/2019 Time: 15:22 Bed 4 Private MD: Diagnosis: Fracture of first cervical vertebra;Fall on same level, unspecified Presentation: 08/25 15:24 Presenting complaint: Patient states: fall from standing position. Pt denies LOC, but ss states she was unable to get off the floor and fell approximately 5 hours ago. Care prior to arrival: IV initiated. 20 GA, in the left forearm. Mechanism of Injury: Fall from standing position. Trauma event details: Injury occurred in the [facility], Injury occurred: at home. Injury occurred: August 25, 2019. 15:24 Method Of Arrival: EMS: [facility] 15:24 Transition of care: patient was not received from another setting of care. Onset of ss symptoms was August 25, 2019. Risk Assessment: Do you want to hurt yourself or someone else? Patient reports no desire to harm self or others. Initial Sepsis Screen: Does the patient meet any 2 criteria? No. Patient's initial sepsis screen is negative. Does the patient have a suspected source of infection? No. Patient's initial sepsis screen is negative. 15:24 Acuity: LAURYN 2 ss Triage Assessment: 15:24 General: Appears distressed, uncomfortable, slender, Behavior is calm, cooperative, bp appropriate for age. Pain: Complains of pain in head. EENT: No deficits noted. Neuro: Level of Consciousness is awake, alert, obeys commands, Oriented to person, place, time, situation, Appropriate for age. Cardiovascular: No deficits noted. Respiratory: No deficits noted. GI: No signs and/or symptoms were reported involving the gastrointestinal system. : No signs and/or symptoms were reported regarding the genitourinary system. Derm: No deficits noted. Musculoskeletal: No deficits noted. Trauma Activation: Alert Physician: ED Physician; Name: ; Notified At: ; Arrived At: Physician: General Surgeon; Name: ; Notified At: ; Arrived At: Physician: Radiology; Name: ; Notified At: ; Arrived At: Physician: Respiratory; Name: ; Notified At: ; Arrived At: Physician: Lab; Name: ; Notified At: ; Arrived At: Historical: - Allergies: 15:29 Codeine; ss - PMHx: 15:29 Anxiety; Chronic pain; Depression; Rib Fracture; ss - Immunization history:: Adult Immunizations up to date. - Social history:: Smoking status: Patient/guardian denies using tobacco. - Ebola Screening: : Patient denies exposure to infectious person Patient denies travel to an Ebola-affected area in the 21 days before illness onset. Screenin:22 Abuse screen: Denies threats or abuse. Denies injuries from another. Tuberculosis ss screening: Never had TB. Primary Survey: 15:24 NO uncontrolled hemorrhage observed. A: The patient is alert. Airway: patent, No ss supplemental oxygen in use on arrival. Oral cavity: clear, Trachea midline. Breathing/Chest: Respiratory pattern: regular, Respiratory effort:. Circulation: Pulses: palpable right radial artery and left radial artery. Skin color: pink. Disability Alert. Exposure/Environment: There is no evidence of uncontrolled external bleeding. Obvious injury(ies) are noted at this time: moderate bruising and mild swelling noted to forehead, small avulsion noted to R hand. Assessment: 15:24 General: SEE TRIAGE NOTE. bp 16:13 Reassessment: PER PROVIDER, C1 FX NOTED ON CT. C-COLLAR PLACED, PT REMAINS NEURO INTACT.bp 16:48 Reassessment: PHLEBOTOMY CONTACTED FOR LAB RECOLLECT. bp 17:44 Reassessment: Report given to ILYA Marti at [facility] in [facility]. ss 18:10 Reassessment: EMS AT B/S FOR TRANSPORT. bp Vital Signs: 15:22 BP 156 / 80; Pulse 78; Resp 17; Pulse Ox 96% on R/A; Weight 47.63 kg; Height 5 ft. 0 ss in. (152.40 cm); Pain 7/10; 16:27 BP 149 / 104; Pulse 73; Resp 18; Pulse Ox 100% ; bp 16:44 Temp 98.7; ms 17:30 BP 142 / 72; Pulse 80; Resp 24; Pulse Ox 93% ; bp 15:22 Body Mass Index 20.51 (47.63 kg, 152.40 cm) Springer Coma Score: 15:22 Eye Response: spontaneous(4). Verbal Response: oriented(5). Motor Response: obeys commands(6). Total: 15. Trauma Score (Adult): 15:22 Eye Response: spontaneous(1); Verbal Response: oriented(1); Motor Response: obeys ss commands(2); Systolic BP: > 89 mm Hg(4); Respiratory Rate: 10 to 29 per min(4); Cristel Score: 15; Trauma Score: 12 ED Course: 15:22 Patient arrived in ED. ss 15:22 Patient has correct armband on for positive identification. Bed in low position. Call ss light in reach. Side rails up X2. bus driver/monitor on. Pulse ox on. NIBP on. 15:22 Maintain EMS IV. Good blood return noted. Site clean \T\ dry. Gauge \T\ site: 20 gauge in L ss FA. Patient maintains SpO2 saturation greater than 95% on room air. Thermoregulation: warm blanket given to patient. 15:23 Robyn Kruger FNP-C is PHCP. snw 15:23 Salvatore Oconnor MD is Attending Physician. snw 15:26 Triage completed. ss 15:29 Arm band placed on right wrist. ss 15:30 Jorge Alberto Andrade, RN is Primary Nurse. bp 15:39 CT Head C Spine In Process Unspecified. EDMS 15:39 CT Facial Bones W/O Con In Process Unspecified. EDMS 16:08 Chest Single View XRAY In Process Unspecified. EDMS 16:15 CT completed. Patient tolerated procedure well. Patient moved to CT via stretcher. Patient moved back from CT. Administered Medications: 16:51 Drug: clonazePAM 1 mg Route: PO; tr5 16:51 Drug: Tylenol-Codeine #3 (300 mg - 30 mg) 1 tablet {Note: RASS:0.} Route: PO; tr5 Outcome: 17:27 ER care complete, transfer ordered by . snw 18:23 Patient left the ED. bp Signatures: Dispatcher [employer] EDMS Robyn Kruger FNP-C [employer]-Ed Awan Dedra Moya ms, Shelby, RN RN Jorge Alberto Andrade, ILYA RN David Alvarado RN RN tr5 Corrections: (The following items were deleted from the chart) 15:29 15:24 Acuity: LAURYN 4 ss ss 15:30 15:24 Acuity: LAURYN 3 ss ss
--- NOTE | 2019-08-25 17:29 | EDPHYS ---
Physician Documentation [facility] Name: Alessia Coombs Age: 89 yrs Sex: Female : 1930 Arrival Date: 08/25/2019 Time: 15:22 Bed 4 Private MD: ED Physician Salvatore Oconnor HPI: 08/25 15:32 This 89 yrs old Female presents to ER via EMS with complaints of Fall Injury. snw 15:32 Details of fall: The patient fell from an upright position, while standing. Onset: The snw symptoms/episode began/occurred suddenly, 5 hour(s) ago. Associated injuries: The patient sustained injury to the head, contusion, hematoma, swelling. Severity of symptoms: At their worst the symptoms were moderate. It is unknown whether or not the patient has had similar symptoms in the past. It is unknown whether or not the patient has recently seen a physician. lives alone, unable to get to phone for five hours post fall. Historical: - Allergies: 15:29 Codeine; ss - PMHx: 15:29 Anxiety; Chronic pain; Depression; Rib Fracture; ss - Immunization history:: Adult Immunizations up to date. - Social history:: Smoking status: Patient/guardian denies using tobacco. - Ebola Screening: : Patient denies exposure to infectious person Patient denies travel to an Ebola-affected area in the 21 days before illness onset. ROS: 15:31 Eyes: Negative for injury, pain, redness, and discharge, ENT: Negative for injury, snw pain, and discharge, Neck: Negative for injury, pain, and swelling, Cardiovascular: Negative for chest pain, palpitations, and edema, Respiratory: Negative for shortness of breath, cough, wheezing, and pleuritic chest pain, Abdomen/GI: Negative for abdominal pain, nausea, vomiting, diarrhea, and constipation, Back: Negative for injury and pain, : Negative for injury, bleeding, discharge, and swelling, MS/Extremity: Negative for injury and deformity, Skin: Negative for injury, rash, and discoloration, Neuro: Negative for headache, weakness, numbness, tingling, and seizure, Psych: Negative for depression, anxiety, suicide ideation, homicidal ideation, and hallucinations. 15:31 Constitutional: Positive for body aches, malaise, poor PO intake. Exam: 15:27 Eyes: Pupils equal round and reactive to light, extra-ocular motions intact. Lids and snw lashes normal. Conjunctiva and sclera are non-icteric and not injected. Cornea within normal limits. Periorbital areas with no swelling, redness, or edema. 15:27 Chest/axilla: Normal chest wall appearance and motion. Nontender with no deformity. No lesions are appreciated. Cardiovascular: Regular rate and rhythm with a normal S1 and S2. No gallops, murmurs, or rubs. Normal PMI, no JVD. No pulse deficits. Respiratory: Lungs have equal breath sounds bilaterally, clear to auscultation and percussion. No rales, rhonchi or wheezes noted. No increased work of breathing, no retractions or nasal flaring. Abdomen/GI: Soft, non-tender, with normal bowel sounds. No distension or tympany. No guarding or rebound. No evidence of tenderness throughout. Back: No spinal tenderness. No costovertebral tenderness. Full range of motion. Skin: Warm, dry with normal turgor. Normal color with no rashes, no lesions, and no evidence of cellulitis. MS/ Extremity: Pulses equal, no cyanosis. Neurovascular intact. Full, normal range of motion. Neuro: Awake and alert, GCS 15, oriented to person, place, time, and situation. Cranial nerves II-XII grossly intact. Motor strength 5/5 in all extremities. Sensory grossly intact. Cerebellar exam normal. Normal gait. Psych: Awake, alert, with orientation to person, place and time. Behavior, mood, and affect are within normal limits. 15:27 Constitutional: The patient appears alert, awake, frail. 15:27 Head/face: Noted is contusion, that is deep, ecchymosis, that is moderate, of the forehead, right eye, nose and left eye. 15:27 ENT: Nose: bleeding, is noted from both nares, dried blood. Vital Signs: 15:22 BP 156 / 80; Pulse 78; Resp 17; Pulse Ox 96% on R/A; Weight 47.63 kg; Height 5 ft. 0 ss in. (152.40 cm); Pain 7/10; 16:27 BP 149 / 104; Pulse 73; Resp 18; Pulse Ox 100% ; bp 16:44 Temp 98.7; ms 17:30 BP 142 / 72; Pulse 80; Resp 24; Pulse Ox 93% ; bp 15:22 Body Mass Index 20.51 (47.63 kg, 152.40 cm) ss Cristel Coma Score: 15:22 Eye Response: spontaneous(4). Verbal Response: oriented(5). Motor Response: obeys ss commands(6). Total: 15. Trauma Score (Adult): 15:22 Eye Response: spontaneous(1); Verbal Response: oriented(1); Motor Response: obeys ss commands(2); Systolic BP: > 89 mm Hg(4); Respiratory Rate: 10 to 29 per min(4); Cristel Score: 15; Trauma Score: 12 MDM: 15:26 Patient medically screened. snw 16:35 Data reviewed: vital signs, nurses notes. Data interpreted: Pulse oximetry: on room air snw is 100 %. Interpretation: normal. Counseling: I had a detailed discussion with the patient and/or guardian regarding: the historical points, exam findings, and any diagnostic results supporting the discharge/admit diagnosis, the presence of at least one elevated blood pressure reading (>120/80) during this emergency department visit, radiology results, the need to transfer to another facility, for higher level of care, [facility] does not immediately have the required specialist. ED course: Home provider came to see pt and is attempting to contact Pt's Daughter. 17:27 Physician consultation: Dr Quinones was called at 17:27, was contacted at 17:27, snw regarding regarding transfer, to [facility]. kindly accepts pt without consultation. 17:31 ED course: Ms. Soto (caregiver) - [phone]. ED course: Sasha Oliver (Daughter) [phone] snw [phone], Mickie Marquez [phone]. 08/25 15:25 Order name: T\T\S; Complete Time: 17:11 snw 08/25 15:25 Order name: Basic Metabolic Panel; Complete Time: 17:04 snw 08/25 15:25 Order name: Blood Culture Adult (2) snw 08/25 15:25 Order name: Ckmb; Complete Time: 17:04 snw 08/25 15:25 Order name: CPK; Complete Time: 17:04 snw 08/25 15:25 Order name: Lactate; Complete Time: 17:04 snw 08/25 15:25 Order name: LFT's; Complete Time: 17:04 snw 08/25 15:25 Order name: Lipase; Complete Time: 17:04 snw 08/25 15:25 Order name: Procalcitonin; Complete Time: 17:04 snw 08/25 15:25 Order name: Protime (+inr); Complete Time: 17:04 snw 08/25 15:25 Order name: Ptt, Activated; Complete Time: 17:04 snw 08/25 15:25 Order name: Troponin (emerg Dept Use Only); Complete Time: 17:04 snw 08/25 15:25 Order name: Chest Single View XRAY; Complete Time: 17:04 snw 08/25 15:25 Order name: Accucheck; Complete Time: 15:56 snw 08/25 15:25 Order name: Cardiac monitoring; Complete Time: 15:56 snw 08/25 15:25 Order name: EKG - Nurse/Tech; Complete Time: 15:56 snw 08/25 15:25 Order name: IV Saline Lock - Large Bore; Complete Time: 15:57 snw 08/25 15:25 Order name: Labs collected and sent; Complete Time: 15:57 snw 08/25 15:25 Order name: O2 Per Protocol; Complete Time: 15:57 snw 08/25 15:25 Order name: O2 Sat Monitoring; Complete Time: 15:57 snw 08/25 15:25 Order name: CT Head C Spine; Complete Time: 16:20 snw 08/25 15:31 Order name: CT Facial Bones W/O Con; Complete Time: 16:21 snw 08/25 16:06 Order name: Glucose, Ancillary Testing; Complete Time: 16:20 EDMS 08/25 16:03 Order name: C-Collar; Complete Time: 16:12 snw Administered Medications: 16:51 Drug: clonazePAM 1 mg Route: PO; tr5 16:51 Drug: Tylenol-Codeine #3 (300 mg - 30 mg) 1 tablet {Note: RASS:0.} Route: PO; tr5 Disposition: 18:31 Co-signature as Attending Physician, Salvatore Oconnor MD. rn Disposition: 08/25/19 17:27 Transfer ordered to [facility]. Diagnosis are Fracture of first cervical vertebra, Fall on same level, unspecified. - Reason for transfer: Higher level of care. - Accepting physician is Dr. Quinones. - Condition is Stable. - Problem is new. - Symptoms are unchanged. Signatures: Dispatcher [employer] [facility] Robyn Kruger, FIRE PREVENTION CHIEF-C FIRE PREVENTION CHIEF-Csnw Salvatore Oconnor MD MD rn Smirch, Shelby, RN RN ss Jorge Alberto Andrade RN RN David Alvraado RN RN tr5 Corrections: (The following items were deleted from the chart) 15:32 15:32 Facial Bones W/ Mpr ordered. [facility] 18:23 17:27 08/25/2019 17:27 Transfer ordered to [facility]. bp Diagnosis is Fracture of first cervical vertebra; Fall on same level, unspecified. Reason for transfer: Higher level of care. Accepting physician is Dr. Quinones. Condition is Stable. Problem is new. Symptoms are unchanged. snw
[2019-08-25 18:46] VITALS: TEMP 98.7
[2019-08-25 18:47] VITALS: BP 142/72; O2SAT 93
--- NOTE | 2019-08-26 09:11 | EKG ---
Test Date: 2019-08-25 Test Time: 15:51:07 Trim Master Operator: TR MEASUREMENT RESULTS: Intervals: Rate: 68 WA: 194 QRSD: 80 QT: 434 QTc: 461 [place]: P: 53 WA: 194 QRS: 22 T: 46 INTERPRETIVE STATEMENTS: Sinus rhythm with premature atrial complexes Cannot rule out Anterior infarct, age undetermined Abnormal ECG Compared to ECG 05/13/2019 17:38:16 Atrial premature complex(es) now present First degree AV block no longer present Myocardial infarct finding still present Electronically Signed On 08-26-19 09:10:46 PLANER OPERATOR / GRADER by Shahab Buck
== END 2019-08-25 18:23 | disposition short-term general hospital (02) ==
LOC: ER 15:19
DX: S12.000A Unspecified displaced fracture of first cervical vertebra, initial encounter for closed fracture (principal); W18.30XA Fall on same level, unspecified, initial encounter; Y93.89 Activity, other specified; Y92.9 Unspecified place or not applicable; Z88.5 Allergy status to narcotic agent
CPT/HCPCS: 36415; 70450; 70486; 71045; 72125; 76377; 80048; 80076; 82550; 82553; 82947; 83605; 83690; 84145; 84484; 85610; 85730; 86850; 86900; 86901; 87040; 87205; 93005; 99285

== ENCOUNTER 2019-10-04 11:50 | Emergency (ER) | payer OTHER ==
--- OUTSIDE RECORDS SUMMARY | 2019-10-04 11:54 | XMS REPORT ---
:1930 [facility] Address [address] Khan [address] [place] [id number] Care Team Providers Name Role Phone Unavailable Unavailable Unavailable Problems This patient has no known problems. Allergies, Adverse Reactions, Alerts This patient has no known allergies or adverse reactions. Medications This patient has no known medications.
[2019-10-04 13:53] LABS: Absolute Lymphocytes (CBC) 1.6 K/uL (0.7-4.9); Basophils % 0.5 % (0-1.3); Hematocrit 34.4 % (36.0-45.0); Lymphocytes % 29.4 % (15.3-44.8); MPV 10.4 fL (7.6-11.3); RBC Red Blood Cell Count 3.51 M/uL (3.86-4.86)
[2019-10-04 13:56] LABS: Protime INR 1.1
[2019-10-04 14:12] LABS: ALT/SGPT 20 U/L (12-78); AST/SGOT 21 U/L (15-37); Albumin 3.3 g/dL (3.4-5.0); Alkaline Phosphatase 105 U/L (45-117); BUN Blood Urea Nitrogen 15 mg/dL (7-18); Bicarbonate 33 mmol/L (21-32); Bilirubin Direct < 0.1 mg/dL (0-0.2); Bilirubin Total 0.3 mg/dL (0.2-1.0); Glucose Level 98 mg/dL (74-106); Magnesium 2.1 mg/dL (1.8-2.4); NT PRO-BNP 200 pg/mL (<450); Potassium 4.2 mmol/L (3.5-5.1); Protein, Total 7.1 g/dL (6.4-8.2); Sodium Level 143 mmol/L (136-145); Troponin (Emerg Dept Use Only) < 0.02 ng/mL (0.0-0.045)
[2019-10-04] MEDS ORDERED: NA CHLORIDE 0.9% 250 ML ONE (14:34)
[2019-10-04 17:06] LABS: Urine Blood NEGATIVE (NEG); Urine Glucose NEGATIVE (NEG); Urine Protein NEGATIVE (NEG)
--- NOTE | 2019-10-04 17:12 | EKG ---
Test Date: 2019-10-04 Test Time: 13:50:15 Blacksmith Apprentice: TC MEASUREMENT RESULTS: Intervals: Rate: 89 OR: 196 QRSD: 86 QT: 364 QTc: 442 [place]: P: 60 OR: 196 QRS: 49 T: 46 INTERPRETIVE STATEMENTS: Normal sinus rhythm Anterior infarct, age undetermined Abnormal ECG Compared to ECG 08/25/2019 15:51:07 Atrial premature complex(es) no longer present Myocardial infarct finding still present Electronically Signed On 10-04-19 17:10:58 TREATING INSPECTOR by Shahab Buck
--- NOTE | 2019-10-04 17:15 | EDPHYS ---
Physician Documentation [facility] Name: Alessia Coombs Age: 89 yrs Sex: Female : 1930 Arrival Date: 10/04/2019 Time: 11:57 Bed 17 Private MD: Anand Jennings H ED Physician Micah Jarvis HPI: 10/04 13:40 This 89 yrs old Female presents to ER via Wheelchair with complaints of cp Altered Mental Status, Depression. 13:40 The patient presents to the emergency department with depression. Onset: The cp symptoms/episode began/occurred gradually. Past psychiatric history: Prior diagnosis: depression, the patient does not have a previous inpatient psychiatric history. 13:40 Associated signs and symptoms: Pertinent negatives: abdominal pain, chest pain, fever, cp hallucinations, headache, homicidal ideation, paranoia, suicide ideation. Patient reports worsening depression but denies suicidal ideations. No falls reported at home. Patient currently prescribed medication for depression and has appt tomorrow with pcp. Historical: - Allergies: 12:10 Codeine; sg - PMHx: 12:10 Anxiety; Chronic pain; Depression; Rib Fracture; sg - Immunization history:: Adult Immunizations up to date. - Social history:: Smoking status: Patient/guardian denies using tobacco. - Ebola Screening: : Patient negative for fever greater than or equal to 101.5 degrees Fahrenheit, and additional compatible Ebola Virus Disease symptoms Patient denies exposure to infectious person Patient denies travel to an Ebola-affected area in the 21 days before illness onset No symptoms or risks identified at this time. ROS: 13:52 Constitutional: Negative for body aches, chills, fever, poor PO intake. cp 13:52 Eyes: Negative for injury, pain, redness, and discharge. cp 13:52 ENT: Negative for drainage from ear(s), ear pain, sore throat, difficulty swallowing, difficulty handling secretions. 13:52 Cardiovascular: Negative for chest pain, edema, palpitations. 13:52 Respiratory: Negative for cough, shortness of breath, wheezing. 13:52 Abdomen/GI: Negative for abdominal pain, nausea, vomiting, and diarrhea. 13:52 Skin: Negative for cellulitis, rash. 13:52 Neuro: Negative for altered mental status, dizziness, headache, syncope, weakness. 13:52 Psych: Positive for depression, Negative for auditory hallucinations, visual hallucinations, suicide gesture, suicidal ideation. 13:52 All other systems are negative. Exam: 13:56 Constitutional: The patient appears in no acute distress, alert, awake, cp non-diaphoretic, non-toxic, well developed, well nourished, frail. 13:56 Head/Face: Normocephalic, atraumatic. cp 13:56 Eyes: Periorbital structures: appear normal, Pupils: equal, round, and reactive to light and accomodation, Extraocular movements: intact throughout, Conjunctiva: normal, no exudate, no injection, Sclera: no appreciated abnormality, Lids and lashes: appear normal, bilaterally. 13:56 ENT: External ear(s): are unremarkable, Nose: is normal, Mouth: Lips: moist, Oral mucosa: pink and intact, moist, Posterior pharynx: is normal, airway is patent, no erythema, no exudate. 13:56 Chest/axilla: Inspection: normal, Palpation: is normal, no crepitus, no tenderness. 13:56 Cardiovascular: Rate: normal, Rhythm: regular, Edema: is not appreciated, JVD: is not appreciated. 13:56 Respiratory: the patient does not display signs of respiratory distress, Respirations: normal, no use of accessory muscles, no retractions, no splinting, no tachypnea, labored breathing, is not present, Breath sounds: are clear throughout, no decreased breath sounds, no stridor, no wheezing. 13:56 Abdomen/GI: Inspection: abdomen appears normal, Bowel sounds: active, all quadrants, Palpation: abdomen is soft and non-tender, in all quadrants. 13:56 Skin: no rash present. 13:56 Neuro: Orientation: to person, place \T\ time. Mentation: is normal, Cerebellar function: is grossly normal, Motor: moves all fours, strength is normal, Sensation: no obvious gross deficits. 13:56 Psych: Behavior/mood is pleasant, cooperative, Affect is calm, Patient has no thoughts/intents to harm self or others. Judgement / Insight is normal. Delusions/hallucinations are not present. 14:11 ECG was reviewed by the Attending Physician. cp Vital Signs: 12:17 BP 119 / 78; Pulse 87; Resp 18; Temp 98.7; Pulse Ox 100% on R/A; Pain 4/10; sg 13:31 BP 123 / 66; Pulse 94; Resp 17; Temp 98.5(O); Pulse Ox 97% on R/A; mh5 16:01 BP 112 / 60; Pulse 80; Resp 22; Temp 98.1(O); Pulse Ox 94% on R/A; mh5 17:01 BP 136 / 56; Pulse 88; Resp 18; Temp 98.2(O); Pulse Ox 97% on R/A; mh5 17:18 BP 139 / 80; Pulse 86; Resp 17 S; Pulse Ox 100% on R/A; ca1 MDM: 13:32 Patient medically screened. cp 14:00 Differential diagnosis: depression, suicidal ideations, UTI, sepsis. cp 17:12 Data reviewed: vital signs, nurses notes, lab test result(s), EKG, and as a result, I cp will discharge patient. 17:12 Test interpretation: by ED physician or midlevel provider: ECG. Counseling: I had a cp detailed discussion with the patient and/or guardian regarding: the historical points, exam findings, and any diagnostic results supporting the discharge/admit diagnosis, lab results, the need for outpatient follow up, a family practitioner, to return to the emergency department if symptoms worsen or persist or if there are any questions or concerns that arise at home. ED course: VSS. Will discharge to home for continued monitoring. 10/04 13:33 Order name: Urine Microscopic Only cp 10/04 13:33 Order name: Basic Metabolic Panel; Complete Time: 14:25 cp 10/04 14:25 Interpretation: Normal except: CO2 33; GFR 63. cp 10/04 13:33 Order name: CBC with Diff; Complete Time: 14:25 cp 10/04 14:26 Interpretation: Normal except: RBC 3.51; HGB 11.5; HCT 34.4; PLT 140. cp 10/04 13:33 Order name: LFT's; Complete Time: 14:25 cp 10/04 14:26 Interpretation: Normal except: ALB 3.3; GLOB 3.8; A/G 0.9. cp 10/04 13:33 Order name: Magnesium; Complete Time: 14:25 cp 10/04 13:33 Order name: NT PRO-BNP; Complete Time: 14:25 cp 10/04 13:33 Order name: Urine Dipstick-Ancillary (obtain specimen); Complete Time: 17:00 cp 10/04 13:33 Order name: PT-INR; Complete Time: 14:25 cp 10/04 13:33 Order name: Troponin (emerg Dept Use Only); Complete Time: 14:25 cp 10/04 14:26 Interpretation: Within normal limits: TROPED < 0.02. cp 10/04 13:33 Order name: EKG; Complete Time: 13:34 cp 10/04 13:33 Order name: Cardiac monitoring; Complete Time: 13:51 cp 10/04 13:33 Order name: EKG - Nurse/Tech; Complete Time: 13:51 cp 10/04 17:00 Order name: Urine Dipstick--Ancillary (enter results) eb 10/04 13:33 Order name: IV Saline Lock; Complete Time: 13:51 cp 10/04 13:33 Order name: Labs collected and sent; Complete Time: 13:51 cp 10/04 13:33 Order name: O2 Per Protocol; Complete Time: 13:51 cp 10/04 13:33 Order name: O2 Sat Monitoring; Complete Time: 13:51 cp EC:11 Rate is 89 beats/min. Rhythm is regular. [place] interval is normal. QRS interval is normal. cp QT interval is normal. Interpreted by me. Reviewed by me. Administered Medications: 14:33 Drug: NS 0.9% 250 ml Route: IV; Rate: bolus; Site: right antecubital; ca1 17:13 Follow up: Urine output 350 ml; Response: No adverse reaction; IV Status: Completed ca1 infusion; IV Intake: 250ml Disposition: 10/05 08:29 Co-signature as Attending Physician, Micah Jarvsi MD I agree with the assessment and liz plan of care. Disposition: 10/04/19 17:14 Discharged to Home. Impression: Person with feared health complaint in whom no diagnosis is made. - Condition is Stable. - Discharge Instructions: Major Depressive Disorder. - Medication Reconciliation Form, Thank You Letter, Antibiotic Education, Prescription Opioid Use form. - Follow up: Anand Jennings DO; When: Tomorrow; Reason: Recheck today's complaints, as scheduled. - Problem is an ongoing problem. - Symptoms are unchanged. Signatures: Dispatcher [employer] EDElvis Molina, RN RN Micah Gaston MD MD cha Page, Corey, CHARLY PA cp Edita Lindsey RN RN ca1 Corrections: (The following items were deleted from the chart) 10/04 18:26 17:14 10/04/2019 17:14 Discharged to Home. Impression: Person with feared health ca1 complaint in whom no diagnosis is made. Condition is Stable. Forms are Medication Reconciliation Form, Thank You Letter, Antibiotic Education, Prescription Opioid Use. Follow up: Anand Jennings; When: Tomorrow; Reason: Recheck today's complaints, as scheduled. Problem is an ongoing problem. Symptoms are unchanged. cp
--- NOTE | 2019-10-04 17:15 | ER ---
Nurse's Notes [facility] Name: Alessia Coombs Age: 89 yrs Sex: Female : 1930 Arrival Date: 10/04/2019 Time: 11:57 Bed 17 Private MD: Anand Jennings H Diagnosis: Person with feared health complaint in whom no diagnosis is made Presentation: 10/04 12:17 Presenting complaint: Fruit Grading Supervisor reports that her and the pt son have noticed the sg patient is more unsteady with walking, she also has had an increase in depression, she is not acting like her normal self, recent fall and txfer to [facility] [place] with fx in neck. Transition of care: patient was not received from another setting of care. Onset of symptoms was October 04, 2019. Risk Assessment: Do you want to hurt yourself or someone else? Patient reports no desire to harm self or others. Initial Sepsis Screen: Does the patient meet any 2 criteria? No. Patient's initial sepsis screen is negative. Does the patient have a suspected source of infection? No. Patient's initial sepsis screen is negative. Care prior to arrival: None. 12:17 Method Of Arrival: Wheelchair 12:17 Acuity: LAURYN 3 sg Historical: - Allergies: 12:10 Codeine; sg - PMHx: 12:10 Anxiety; Chronic pain; Depression; Rib Fracture; sg - Immunization history:: Adult Immunizations up to date. - Social history:: Smoking status: Patient/guardian denies using tobacco. - Ebola Screening: : Patient negative for fever greater than or equal to 101.5 degrees Fahrenheit, and additional compatible Ebola Virus Disease symptoms Patient denies exposure to infectious person Patient denies travel to an Ebola-affected area in the 21 days before illness onset No symptoms or risks identified at this time. Screenin:10 Abuse screen: Denies threats or abuse. Denies injuries from another. Nutritional ca1 screening: No deficits noted. Tuberculosis screening: No symptoms or risk factors identified. Fall Risk Fall in past 12 months (25 points). IV access (20 points). Ambulatory Aid- Crutches/Cane/Walker (15 pts). Total Taylor Fall Scale indicates High Risk Score (45 or more points). Fall prevention measures have been instituted. Side Rails Up X 2 Frequent Obs/Assessments Occuring Family Present and informed to notify staff if the need to leave the bedside As available patient and family educated on Fall Prevention Program and Strategies. Assessment: 13:10 General: Appears in no apparent distress. comfortable, Behavior is calm, cooperative, ca1 appropriate for age, Reports feeling depressed and states, "I feel not quite right". Denies any pain, fever. Pain: Denies pain. Neuro: Level of Consciousness is awake, alert, obeys commands, Oriented to person, place, time, situation, Appropriate for age Body Fitter are equal bilaterally Moves all extremities. Speech is normal, Facial symmetry appears normal, Pupils are PERRLA. Cardiovascular: Heart tones S1 S2 present Capillary refill < 3 seconds Pulses are all present. Edema is absent. Rhythm is sinus rhythm. Respiratory: Airway is patent Respiratory effort is even, unlabored, Respiratory pattern is regular, symmetrical, Breath sounds are clear bilaterally. GI: Abdomen is flat, non-distended, Bowel sounds present X 4 quads. : No signs and/or symptoms were reported regarding the genitourinary system. EENT: No signs and/or symptoms were reported regarding the EENT system. Derm: Skin is intact, is healthy with good turgor, is thin, Skin is pink, warm \\T\\ dry. Musculoskeletal: Circulation, motion, and sensation intact. Capillary refill < 3 seconds, Range of motion: intact in all extremities. 14:00 Reassessment: Brittany care provider, . Reassessment:. ca1 14:00 Reassessment: Care provider requests consult with social work administrator regarding pt care. ca1 States, "We (her children) think that she is taking wrong meds, or taking meds at the wrong time unintentionally. I think she needs to be somewhere where she can be taken care of 24 hours." Notified CN and provider. 14:41 Reassessment: Patient appears in no apparent distress at this time. Patient is alert, ca1 oriented x 3, equal unlabored respirations, skin warm/dry/pink. Talked with Nutrition Program Instructor Ms. Herberty Edmond re care provider's request for social work administrator to come see the pt. Lisa Edmond states, "I work on admitted patients and work on discharge planning. It is usually hard for us to work with pts in the ER. I am fixing to go to a meeting now, so I cannot come down there now.". 15:36 Reassessment: Patient appears in no apparent distress at this time. Patient is alert, ca1 oriented x 3, equal unlabored respirations, skin warm/dry/pink. 16:30 Reassessment: Patient appears in no apparent distress at this time. Patient is alert, ca1 oriented x 3, equal unlabored respirations, skin warm/dry/pink. 17:14 Reassessment: Patient appears in no apparent distress at this time. Patient is alert, ca1 oriented x 3, equal unlabored respirations, skin warm/dry/pink. 17:19 Reassessment: Called Brittany her care provider to inform pt is discharged and ready for ca1 apple picking supervisor. Brittany says she will be here 15 minutes before 6pm or 6pm. Vital Signs: 12:17 BP 119 / 78; Pulse 87; Resp 18; Temp 98.7; Pulse Ox 100% on R/A; Pain 4/10; sg 13:31 BP 123 / 66; Pulse 94; Resp 17; Temp 98.5(O); Pulse Ox 97% on R/A; mh5 16:01 BP 112 / 60; Pulse 80; Resp 22; Temp 98.1(O); Pulse Ox 94% on R/A; mh5 17:01 BP 136 / 56; Pulse 88; Resp 18; Temp 98.2(O); Pulse Ox 97% on R/A; mh5 17:18 BP 139 / 80; Pulse 86; Resp 17 S; Pulse Ox 100% on R/A; ca1 ED Course: 11:57 Patient arrived in ED. am2 12:00 Anand Jennings DO is Private Physician. am2 12:09 Arm band placed on. sg 12:19 Triage completed. sg 13:00 Edita Lindsey, ILYA is Primary Nurse. ca1 13:10 No provider procedures requiring assistance completed. ca1 13:21 Micah Leblanc PA is PHCP. cp 13:21 Micah Jarvis MD is Attending Physician. cp 13:32 Patient has correct armband on for positive identification. Bed in low position. Call 5 light in reach. Side rails up X 1. Warm blanket given. ramp service employee on. Pulse ox on. NIBP on. 13:44 Initial lab(s) drawn, by me, sent to lab. Inserted saline lock: 20 gauge in right ca1 antecubital area, using aseptic technique. Blood collected. 14:15 Social work called with no answer at the request of the family. eb 14:16 called the house player to please get a hold of the social work administrator in house /. eb 14:25 EKG done, by exercise equipment repair technician. reviewed by Micah Jarvis MD. tc 16:59 Urine collected: straight cath specimen, clear, Amount Returned: 350mL. Straight cath mh5 inserted, using sterile technique, 16 Fr. Specimen obtained. 17:00 Urine Microscopic Only Sent. 5 17:14 Anand Jennings DO is Referral Physician. cp 17:37 IV discontinued, intact, bleeding controlled, Pressure dressing applied. ca1 Administered Medications: 14:33 Drug: NS 0.9% 250 ml Route: IV; Rate: bolus; Site: right antecubital; ca1 17:13 Follow up: Urine output 350 ml; Response: No adverse reaction; IV Status: Completed ca1 infusion; IV Intake: 250ml Intake: 17:13 IV: 250ml; Total: 250ml. ca1 Output: 17:13 Urine: 350ml; Total: 350ml. ca1 Outcome: 17:14 Discharge ordered by MD. cp 17:37 Condition: stable ca1 17:37 Discharge instructions given to patient, Instructed on discharge instructions, follow up and referral plans. Demonstrated understanding of instructions, follow-up care. 18:26 Discharged to home via wheelchair, care provider ca1 18:26 Patient left the ED. ca1 Signatures: Elvis Menchaca, RN RN Amelia Silva, cleaning porter EKG Ttc Micah Leblanc PA PA cp Martinez, Maria 5 Tea Washburn Elizabeth eb Acob, Cheryl, RN RN ca1
[2019-10-04 17:16] LABS: Urine Bacteria <20 /HPF (<20); Urine Culture Reflex Order NOT NEEDED; Urine RBC <5 /HPF (NONE SEEN)
[2019-10-04 19:18] VITALS: TEMP 98.2
[2019-10-04 19:20] VITALS: BP 139/80; O2SAT 100
== END 2019-10-04 18:26 | disposition home or self-care (01) ==
LOC: ER 11:50
DX: Z71.1 Person with feared health complaint in whom no diagnosis is made (principal); F32.9 Major depressive disorder, single episode, unspecified; Z88.5 Allergy status to narcotic agent
CPT/HCPCS: 96361; 93005; 85025; 80048; 36415; 83735; 85610; 80076; 84484; 83880; 51702; 96360; 99284; J7030; 81003; 81015; 96365; 96366

== ENCOUNTER 2020-06-11 17:05 | Emergency (ER) | payer OTHER ==
--- OUTSIDE RECORDS SUMMARY | 2020-06-11 17:07 | XMS REPORT | Continuity of Care Document ---
:1930 Author Organization [facility] t Address [address] [place] [address] Care Team Providers Name Role Phone Margarita Jennings Primary Care Physician Jake ALCALA S Attending Clinician Problems Condition Condition Condition Status Onset Resolution Last Treating Co mments Source Name Details Category Date Date Treatment Clinician Date ICH ICH Disease Active 2015-[address] [facility] [address] (intracere (intracere 2- Katiuska kes - bral bral 00:00: Medical hemorrhage hemorrhage 00 Ce nter ) ) Acute Acute Disease Active 2015-[address] [facility] [address] encephalop encephalop 2- Kat[place]ka kes - athy athy 00:00: Medical 00 Center Orthostati Orthostati Disease Active 2015-[address] [facility] 2- [facility] hypotensio hypotensio [facility]: Me dical n n 00 Center Allergies, Adverse Reactions, Alerts This patient has no known allergies or adverse reactions. Social History Social Habit Start Date Stop Date Quantity Comments Source Sex Assigned At [facility] Smoking Status Start Date Stop Date Source Never smoker [facility] Medications This patient has no known medications. Procedures This patient has no known procedures. Encounters Start End Encounter Admission Attending Care Care Encounter Source Date/Time Date/Time Type Type Clinicians Facility Department ID 2020-02-29 2020-03-12 Office MIRIAN Joseph [id number] 10:37:50 09:19:20 Visit [facility] [id number] Surgical [id number] Specialti [id number] [place] Results This patient has no known results.
--- OUTSIDE RECORDS SUMMARY | 2020-06-11 17:07 | XMS REPORT | Clinical Summary ---
:1930 Author Organization [facility] [employer] [facility] Address [address] [place] [id number] Care Team Providers Name Role Phone Cole [...] Not on file Results Not on fileafter 06/11/2019 Insurance Payer Benefit Plan / Group Subscriber ID Type Phone A ddress MEDICARE MEDICARE A B xxxxxxxxxx Medicare ([place]) [place] [address] Advance Directives For more information, please contact:[facility] [employer] [address] [phone] Code Status Date Activated Date Inactivated Comments Full Code 08/26/2016 12:31 AM 08/26/2016 5:56 PM This code status was determined by: Patient
[2020-06-11] MEDS ORDERED: METOPROLOL TAR 25 MG TAB ONE (18:19)
[2020-06-11] MEDS ORDERED: DIAZEPAM 5 MG TABLET ONE (18:39)
[2020-06-11] MEDS ORDERED: NA CHLORIDE 0.9% 500 ML ONE (18:39)
[2020-06-11 18:46] LABS: Absolute Lymphocytes (CBC) 1.9 K/uL (0.7-4.9); Basophils % 0.5 % (0-1.3); Hematocrit 36.4 % (36.0-45.0); Lymphocytes % 33.4 % (15.3-44.8); MPV 10.6 fL (7.6-11.3); RBC Red Blood Cell Count 3.69 M/uL (3.86-4.86)
[2020-06-11 18:59] LABS: Urine Blood NEGATIVE (NEG); Urine Glucose NEGATIVE (NEG); Urine Protein NEGATIVE (NEG); Urine Specific Gravity 1.015 (1.005-1.030)
[2020-06-11 19:05] LABS: Urine Bacteria <20 /HPF (<20); Urine RBC <5 /HPF (NONE SEEN)
[2020-06-11 19:06] LABS: Urine Culture Reflex Order NOT NEEDED
[2020-06-11 19:15] LABS: BUN Blood Urea Nitrogen 21 mg/dL (7-18); Bicarbonate 29 mmol/L (21-32); Glucose Level 100 mg/dL (74-106); Potassium 3.8 mmol/L (3.5-5.1); Sodium Level 141 mmol/L (136-145); Troponin (Emerg Dept Use Only) < 0.02 ng/mL (0.0-0.045)
[2020-06-11] MEDS ORDERED: PROMETHAZINE 25 MG TABLET ONE (20:12)
--- NOTE | 2020-06-11 20:28 | EDPHYS ---
Physician Documentation [facility] Name: Alessia Coombs Age: 89 yrs Sex: Female : 1930 Arrival Date: 06/11/2020 Time: 17:11 Bed 19 Private MD: ED Physician Salvatore Oconnor HPI: 06/11 18:20 This 89 yrs old Female presents to ER via EMS with complaints of Anxiety. rn 18:20 Reports having panic attacks "all day", about nothing particular, reports got worse rn around 6 pm when was supposed to take another klonopin, felt even more anxious so instead of taking pill, called 911. Got here, felt better, and initially refusing any care or tests. Reports feels much better but still a little anxious. No chest pain/sob/abd pain/vomiting/diarrhea/focal neuro complaint. No syncope. . Onset: The symptoms/episode began/occurred this morning. Severity of symptoms: At their worst the symptoms were moderate in the emergency department the symptoms are unchanged. The patient has experienced similar episodes in the past. The patient has been recently seen by a physician:. Historical: - Allergies: 17:15 Codeine; ss - Home Meds: 17:15 Clonazepam Oral as needed [Active]; ss - PMHx: 17:15 Anxiety; Chronic pain; Depression; Rib Fracture; ss - PSHx: 17:15 None; ss - Immunization history:: Adult Immunizations up to date. - Social history:: Smoking status: Patient denies any tobacco usage or history of. - Family history:: not pertinent. - Hospitalizations: : No recent hospitalization is reported. ROS: 18:20 Constitutional: Negative for fever, chills, and weight loss, Eyes: Negative for injury, rn pain, redness, and discharge, Cardiovascular: Negative for chest pain, and edema, Respiratory: Negative for shortness of breath, cough, wheezing, and pleuritic chest pain, Abdomen/GI: Negative for abdominal pain, nausea, vomiting, diarrhea, and constipation, MS/Extremity: Negative for injury and deformity, Skin: Negative for injury, rash, and discoloration, Neuro: Negative for headache, weakness, numbness, tingling, and seizure. Exam: 18:20 Constitutional: Thin female, no acute distress Head/Face: Normocephalic, atraumatic. furniture cleaner: dry MM, sunken eyes Cardiovascular: Regular rate and rhythm. No pulse deficits. Respiratory: No increased work of breathing, no retractions or nasal flaring. Abdomen/GI: soft, non-tender Skin: Warm, dry MS/ Extremity: Pulses equal, no cyanosis. Neurovascular intact. Full, normal range of motion. Equal circumference. Neuro: Awake and alert, GCS 15, oriented to person, place, time, and situation. Cranial nerves II-XII grossly intact. Motor strength 5/5 in all extremities. Sensory grossly intact. Vital Signs: 17:12 BP 158 / 101; Pulse 106; Resp 22; Temp 98.4(TE); Pulse Ox 95% on R/A; Weight 51.71 kg; ss Height 5 ft. 2 in. (157.48 cm); Pain 0/10; 17:30 BP 138 / 80; Pulse 97; Resp 15; Pulse Ox 97% ; jl7 18:10 BP 143 / 80; Pulse 97; Resp 17; Pulse Ox 97% ; Pain 0/10; jl7 19:00 BP 127 / 69; Pulse 84; Resp 19; Pulse Ox 97% on R/A; jb4 20:35 BP 160 / 79; Pulse 76; Resp 16; Pulse Ox 98% on R/A; jb4 17:12 Body Mass Index 20.85 (51.71 kg, 157.48 cm) ss MDM: 18:09 Patient medically screened. rn 18:57 Differential Diagnosis anxiety, dehydration. Data reviewed: vital signs, nurses notes. rn Counseling: I had a detailed discussion with the patient and/or guardian regarding:. Transition of care: After a detail discussion of the patient's case, care is transferred to [facility]. ED course: Pt well-appearing, pending labs, if ok, plan to dc home with return precautions. Improving vitals. . 06/11 18:19 Order name: CBC with Diff; Complete Time: 19:00 rn 06/11 18:19 Order name: Basic Metabolic Panel; Complete Time: 19:30 rn 06/11 18:19 Order name: Urine Microscopic Only; Complete Time: 19:13 rn 06/11 18:19 Order name: Troponin (emerg Dept Use Only); Complete Time: 19:30 rn 06/11 18:55 Order name: Urine Dipstick--Ancillary (enter results) bd 06/11 18:56 Order name: Urine Dipstick-Ancillary; Complete Time: 19:13 [facility] 06/11 18:12 Order name: EKG; Complete Time: 18:12 [facility] 06/11 18:12 Order name: EKG - Nurse/Tech; Complete Time: 18:12 [facility] 06/11 18:19 Order name: IV Start; Complete Time: 18:42 rn 06/11 18:19 Order name: Urine Dipstick-Ancillary (obtain specimen); Complete Time: 18:42 rn Administered Medications: 18:12 Drug: Metoprolol 25 mg Route: PO; jl7 19:12 Follow up: Response: No adverse reaction; Cardiac rhythm changed 7 18:30 Drug: NS 0.9% 500 ml Route: IV; Rate: bolus; Site: right wrist; jl7 19:05 Follow up: Response: No adverse reaction; IV Status: Completed infusion; IV Intake: jb4 500ml 18:30 Drug: Valium 5 mg Route: PO; jl7 19:00 Follow up: Response: No adverse reaction; Marked relief of symptoms; Anxiety decreased jb4 20:05 Drug: Phenergan 25 mg Route: PO; jb4 21:13 Follow up: Response: No adverse reaction; Nausea is decreased jb4 Disposition: 06/11/20 20:28 Discharged to Home. Impression: Volume depletion, unspecified, Anxiety disorder, unspecified. - Condition is Stable. - Discharge Instructions: Panic Attacks, Rehydration, Elderly. - Medication Reconciliation Form, Thank You Letter, Antibiotic Education, Prescription Opioid Use form. - Follow up: Emergency Department; When: As needed; Reason: Worsening of condition. Follow up: Private Physician; When: 2 - 3 days; Reason: Recheck today's complaints, Continuance of care, Re-evaluation by your physician. Signatures: Dispatcher [employer] [facility] Robyn Montejo, FUR EXAMINER-C FUR EXAMINER-Csnw Salvatore Oconnor MD MD rn Smirch, Shelby, RN RN ss Bryson, James, RN RN jb4 Naga Morales RN RN jl7 Corrections: (The following items were deleted from the chart) 21:16 20:28 06/11/2020 20:28 Discharged to Home. Impression: Volume depletion, unspecified; jb4 Anxiety disorder, unspecified. Condition is Stable. Forms are Medication Reconciliation Form, Thank You Letter, Antibiotic Education, Prescription Opioid Use. Follow up: Emergency Department; When: As needed; Reason: Worsening of condition. Follow up: Private Physician; When: 2 - 3 days; Reason: Recheck today's complaints, Continuance of care, Re-evaluation by your physician. vania
--- NOTE | 2020-06-11 20:28 | ER ---
Nurse's Notes [facility] Name: Alessia Coombs Age: 89 yrs Sex: Female : 1930 Arrival Date: 06/11/2020 Time: 17:11 Bed 19 Private MD: Diagnosis: Volume depletion, unspecified;Anxiety disorder, unspecified Presentation: 06/11 17:12 Chief complaint: EMS states: Called out for difficulty breathing. Upon arrival, patient ss told EMS that she has anxiety and feels as if she is having an "anxiety attack" right now, but this is different because it has been lasting all day. Coronavirus screen: Client denies travel out of the [place] in the last 14 days. Ebola Screen: Patient denies exposure to infectious person. Patient denies travel to an Ebola-affected area in the 21 days before illness onset. Initial Sepsis Screen: Does the patient meet any 2 criteria? No. Patient's initial sepsis screen is negative. Does the patient have a suspected source of infection? No. Patient's initial sepsis screen is negative. Risk Assessment: Do you want to hurt yourself or someone else? Patient reports no desire to harm self or others. Onset of symptoms was June 11, 2020. 17:12 Method Of Arrival: EMS: [facility] 17:12 Acuity: LAURYN 3 ss Historical: - Allergies: 17:15 Codeine; ss - Home Meds: 17:15 Clonazepam Oral as needed [Active]; ss - PMHx: 17:15 Anxiety; Chronic pain; Depression; Rib Fracture; ss - PSHx: 17:15 None; ss - Immunization history:: Adult Immunizations up to date. - Social history:: Smoking status: Patient denies any tobacco usage or history of. - Family history:: not pertinent. - Hospitalizations: : No recent hospitalization is reported. Screenin:30 Abuse screen: Denies threats or abuse. Denies injuries from another. Nutritional jl7 screening: No deficits noted. Tuberculosis screening: No symptoms or risk factors identified. Fall Risk None identified. Assessment: 17:20 General: Appears in no apparent distress. uncomfortable, Behavior is calm, cooperative, jl7 appropriate for age. Pain: Denies pain. Neuro: Level of Consciousness is awake, alert, obeys commands, Oriented to person, place, time, situation. Cardiovascular: Rhythm is irregular. Respiratory: Airway is patent Respiratory effort is even, unlabored, Respiratory pattern is regular, symmetrical, Denies shortness of breath. GI: No signs and/or symptoms were reported involving the gastrointestinal system. : No signs and/or symptoms were reported regarding the genitourinary system. EENT: No signs and/or symptoms were reported regarding the EENT system. Derm: Skin is pink, warm \\T\\ dry. Musculoskeletal: No signs and/or symptoms reported regarding the musculoskeletal system. 17:30 Reassessment: Pt states "I feel fine, I just had an anxiety attack." Pt denies pain, jl7 denies shortness of breath. States "I really don't want a bunch of tests. I just want to go home." ERD notified. 17:33 Reassessment: Point of Contact: Caregiver( Brittany): [phone]. 18:15 Reassessment: ERD at bedside. jl7 19:05 Reassessment: Patient appears in no apparent distress at this time. Patient and/or jb4 family updated on plan of care and expected duration. Pain level reassessed. Patient is alert, oriented x 3, equal unlabored respirations, skin warm/dry/pink. PT reports not being able to find her wallet or her debit card. 19:56 Reassessment: EMS called about pt's belongings reports that pt asked them to leave jb4 her wallet and debit card in her room so that is where it was left. Pt informed. Pt reports that her caregiver Brittany would be able to pick her up if she were discharged. 20:29 Reassessment: Attempted to call caregiver. No answer. jb4 21:14 Reassessment: Patient appears in no apparent distress at this time. Patient and/or jb4 family updated on plan of care and expected duration. Pain level reassessed. Patient is alert, oriented x 3, equal unlabored respirations, skin warm/dry/pink. PT and caregiver verbalized understanding of d/c and follow up instructions. Denies questions or concerns. Assisted to caregivers vehicle via wheelchair. Vital Signs: 17:12 BP 158 / 101; Pulse 106; Resp 22; Temp 98.4(TE); Pulse Ox 95% on R/A; Weight 51.71 kg; ss Height 5 ft. 2 in. (157.48 cm); Pain 0/10; 17:30 BP 138 / 80; Pulse 97; Resp 15; Pulse Ox 97% ; jl7 18:10 BP 143 / 80; Pulse 97; Resp 17; Pulse Ox 97% ; Pain 0/10; jl7 19:00 BP 127 / 69; Pulse 84; Resp 19; Pulse Ox 97% on R/A; jb4 20:35 BP 160 / 79; Pulse 76; Resp 16; Pulse Ox 98% on R/A; jb4 17:12 Body Mass Index 20.85 (51.71 kg, 157.48 cm) ED Course: 17:11 Patient arrived in ED. ds1 17:14 Triage completed. ss 17:15 Arm band placed on right wrist. ss 17:30 Patient has correct armband on for positive identification. Placed in gown. Bed in low jl7 position. Call light in reach. Side rails up X 1. supervisor die casting on. Pulse ox on. NIBP on. Warm blanket given. 17:39 Naga Morales RN is Primary Nurse. jl7 17:45 EKG done, by ED staff, reviewed by Salvatore Oconnor MD. jl7 18:09 Salvatore Oconnor MD is Attending Physician. rn 18:43 Initial lab(s) drawn, by co, sent to lab. Urine collected: clean catch specimen, clear. jl7 Inserted saline lock: 20 gauge in right wrist, using aseptic technique. Blood collected. 19:13 Robyn Montejo FNP-C [facility] snw 19:14 Report given to ILYA Du. jl7 19:51 called [facility] spoke to Pio regarding the pt's wallet and debit card. mw2 Pio stated "the crew that took the call "said the pt specifically asked them not to take any of her belongings and that her belongings are still in her bedroom at her house".". 21:15 No provider procedures requiring assistance completed. IV discontinued, intact, jb4 bleeding controlled, No redness/swelling at site. Pressure dressing applied. Administered Medications: 18:12 Drug: Metoprolol 25 mg Route: PO; jl7 19:12 Follow up: Response: No adverse reaction; Cardiac rhythm changed jl7 18:30 Drug: NS 0.9% 500 ml Route: IV; Rate: bolus; Site: right wrist; jl7 19:05 Follow up: Response: No adverse reaction; IV Status: Completed infusion; IV Intake: jb4 500ml 18:30 Drug: Valium 5 mg Route: PO; jl7 19:00 Follow up: Response: No adverse reaction; Marked relief of symptoms; Anxiety decreased jb4 20:05 Drug: Phenergan 25 mg Route: PO; jb4 21:13 Follow up: Response: No adverse reaction; Nausea is decreased jb4 Intake: 19:05 IV: 500ml; Total: 500ml. jb4 Outcome: 20:28 Discharge ordered by . snyina 21:15 Discharged to home via wheelchair. jb4 21:15 Condition: stable 21:15 Discharge instructions given to patient, hearse driver, Instructed on discharge instructions, follow up and referral plans. Demonstrated understanding of instructions, follow-up care. 21:16 Patient left the ED. jb4 Signatures: Robyn Montejo, COMMERCIAL GREEN RETROFIT ARCHITECT-C COMMERCIAL GREEN RETROFIT ARCHITECT-Csnw Angelina Viramontes ds1 Salvatore Oconnor MD MD rn Smirch, Shelby, RN RN ss Bryson, James, RN RN jb4 Naga Morales RN RN jl7 Ivan Truong 2
[2020-06-11 21:51] VITALS: TEMP 98.4
[2020-06-11 21:56] VITALS: BP 160/79; O2SAT 98
== END 2020-06-11 21:16 | disposition home or self-care (01) ==
LOC: ER 17:05
DX: E86.9 Volume depletion, unspecified (principal); F32.9 Major depressive disorder, single episode, unspecified; Z88.5 Allergy status to narcotic agent
CPT/HCPCS: 93005; 85025; 80048; 36415; 84484; 96360; 99284; J7040; 81003; 81015; Q0169

== ENCOUNTER 2020-07-07 02:05 | Emergency (ER) | payer OTHER ==
--- OUTSIDE RECORDS SUMMARY | 2020-07-07 02:07 | XMS REPORT | Clinical Summary ---
:1930 Author Organization [facility] Address [address] [place] [address] Care Team Providers Name Role Phone Cole Jennings Primary Care Provider Allergies No Known Allergies Medications Not on file Active Problems Problem Noted Date ICH (intracerebral hemorrhage) 08/26/2016 Acute encephalopathy 08/26/2016 Orthostatic hypotension 08/26/2016 Social History Tobacco Use Types Packs/Day Years Used Date Never Smoker Alcohol Use Drinks/Week oz/Week Comments No Sex Assigned at Date Recorded Not on file Last Filed Vital Signs Not on file Plan of Treatment Not on file Results Not on fileafter 07/07/2019 ([place]) [place] [address] Advance Directives For more information, please contact: [phone] Code Status Date Activated Date Inactivated Comments Full Code 08/26/2016 12:31 AM 08/26/2016 5:56 PM This code status was determined by: Patient
--- OUTSIDE RECORDS SUMMARY | 2020-07-07 02:08 | XMS REPORT | Continuity of Care Document ---
:1930 Author Organization [facility] t Address 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 Social History Social Habit Start Date Stop Date Quantity Comments Source Sex Assigned At [facility] Alcohol intake 2016-08-26 2016-08-26 Current [facility] es - 00:00:00 00:00:00 non-drinker of Medical Ce nter alcohol (finding) Smoking Status Start Date Stop Date Source Never smoker [facility] Medications This patient has no known medications. Procedures This patient has no known procedures. Encounters Start End Encounter Admission Attending Care Care Encounter Source Date/Time Date/Time Type Type Clinicians Facility Department ID 2020-02-29 2020-03-12 Office MIRIAN Joseph [id number] 10:37:50 09:19:20 Visit [facility] [id number] Surgical [id number] Specialti [id number] [address] Results This patient has no known results.
[2020-07-07 03:02] LABS: Protime INR 1.08
[2020-07-07 03:04] LABS: Absolute Lymphocytes (CBC) 1.7 K/uL (0.7-4.9); Basophils % 0.8 % (0-1.3); Hematocrit 39.5 % (36.0-45.0); Lymphocytes % 16.3 % (15.3-44.8); MPV 10.8 fL (7.6-11.3); RBC Red Blood Cell Count 4.07 M/uL (3.86-4.86)
[2020-07-07 03:16] LABS: ALT/SGPT 19 U/L (12-78); AST/SGOT 23 U/L (15-37); Albumin 3.9 g/dL (3.4-5.0); Alkaline Phosphatase 106 U/L (45-117); BUN Blood Urea Nitrogen 12 mg/dL (7-18); Bicarbonate 27 mmol/L (21-32); Bilirubin Direct 0.2 mg/dL (0-0.2); Bilirubin Total 0.7 mg/dL (0.2-1.0); Glucose Level 118 mg/dL (74-106); NT PRO-BNP 1213 pg/mL (<450); Potassium 3.7 mmol/L (3.5-5.1); Protein, Total 8.3 g/dL (6.4-8.2); Sodium Level 138 mmol/L (136-145); Troponin (Emerg Dept Use Only) < 0.02 ng/mL (0.0-0.045)
[2020-07-07 05:16] LABS: Urine Blood NEGATIVE (NEG); Urine Glucose NEGATIVE (NEG); Urine Protein NEGATIVE (NEG); Urine pH 8.5 (5.0-7.0)
--- NOTE | 2020-07-07 06:57 | EDPHYS ---
Physician Documentation [facility] Name: Alessia Coombs Age: 89 yrs Sex: Female : 1930 Arrival Date: 07/07/2020 Time: 02:10 Bed 4 Private MD: ED Physician Aquilnio Riggins HPI: 07/07 04:59 This 89 yrs old Female presents to ER via EMS with complaints of "doesnt fell tw4 right". 04:59 Pt brought in by EMS and this was the second time that EMS was called to evaluate the tw4 pt. EMS states that she complains that she doesn't feel well and that she is going to . Onset: The symptoms/episode began/occurred today. Severity of symptoms: At their worst the symptoms were moderate in the emergency department the symptoms are unchanged. The patient has not experienced similar symptoms in the past. Historical: - Allergies: 02:10 Codeine; jb4 - Home Meds: 02:10 Abilify Oral [Active]; Amitriptyline 20 mg, two tabs at night Oral [Active]; citalopram jb4 40 mg tab 1 tab once daily [Active]; Clonazepam Oral as needed [Active]; Tylenol #3 Oral [Active]; - PMHx: 02:10 Anxiety; Chronic pain; Depression; Rib Fracture; jb4 - PSHx: 02:10 None; jb4 - Immunization history:: Adult Immunizations unknown. - Social history:: Smoking status: unknown. ROS: 04:59 All other systems are negative. tw4 04:59 All other systems are negative. 04:59 Unable to obtain ROS due to baseline dementia. Exam: 04:59 Constitutional: This is a well developed, well nourished patient who is awake, alert, tw4 and in no acute distress. Head/Face: Normocephalic, atraumatic. Chest/axilla: Normal chest wall appearance and motion. Nontender with no deformity. No lesions are appreciated. Cardiovascular: Regular rate and rhythm with a normal S1 and S2. No gallops, murmurs, or rubs. Normal PMI, no JVD. No pulse deficits. Respiratory: Lungs have equal breath sounds bilaterally, clear to auscultation and percussion. No rales, rhonchi or wheezes noted. No increased work of breathing, no retractions or nasal flaring. Abdomen/GI: Soft, non-tender, with normal bowel sounds. No distension or tympany. No guarding or rebound. No evidence of tenderness throughout. Vital Signs: 02:10 BP 161 / 105; Pulse 116; Resp 20; Temp 98.7(O); Pulse Ox 94% on R/A; Weight 36.29 kg jb4 (R); Height 5 ft. 3 in. (160.02 cm) (R); Pain 10/10; 03:00 BP 156 / 91; Pulse 89; Resp 22; Pulse Ox 95% on R/A; jb4 04:02 BP 177 / 97; Pulse 81; Resp 16; Pulse Ox 97% on R/A; jb4 05:00 BP 176 / 79; Pulse 89; Resp 24; Pulse Ox 96% on R/A; jb4 06:00 BP 157 / 97; Pulse 92; Resp 22; Pulse Ox 95% on R/A; jb4 07:35 BP 161 / 92; Pulse 91; Resp 17; Pulse Ox 94% ; jl7 02:10 Body Mass Index 14.17 (36.29 kg, 160.02 cm) jb4 MDM: 02:10 Patient medically screened. tw4 07:23 Differential Diagnosis altered mental status, sepsis. Data reviewed: vital signs, tw4 nurses notes, lab test result(s), cardiac enzymes, CBC, hepatic panel, EKG, radiologic studies, plain films. Data interpreted: Pulse oximetry: Interpretation: normal. Counseling: I had a detailed discussion with the patient and/or guardian regarding: the historical points, exam findings, and any diagnostic results supporting the discharge/admit diagnosis, lab results, radiology results. Special discussion: I discussed with the patient/guardian in detail that at this point there is no indication for admission to the hospital. It is understood, however, that if the symptoms persist or worsen the patient needs to return immediately for re-evaluation. 07/07 02:10 Order name: Basic Metabolic Panel; Complete Time: 03:17 tw4 07/07 03:18 Interpretation: Normal except: GLUC 118; GFR 61. tw4 07/07 02:10 Order name: CBC with Diff; Complete Time: 03:17 tw4 07/07 03:18 Interpretation: Normal except: LEONORA% 78.2; NEUT A 8.1. tw4 10/12 02:10 Order name: LFT's; Complete Time: 03:17 07/07 03:18 Interpretation: Normal except: TP 8.3; GLOB 4.4; A/G 0.9. 07/07 02:10 Order name: Magnesium; Complete Time: 03:17 07/07 03:18 Interpretation: Within normal limits: MG 2.0. 07/07 02:10 Order name: NT PRO-BNP; Complete Time: 03:17 07/07 03:18 Interpretation: Normal except: NT PRO-BNP 1213. 07/07 02:10 Order name: PT-INR; Complete Time: 03:17 07/07 03:18 Interpretation: Normal except: PT 12.7. 07/07 02:10 Order name: Troponin (emerg Dept Use Only); Complete Time: 03:17 07/07 03:18 Interpretation: Within normal limits: TROPED < 0.02. 07/07 02:10 Order name: XRAY Chest (1 view) 07/07 02:10 Order name: EKG; Complete Time: 02:11 07/07 02:10 Order name: Cardiac monitoring; Complete Time: 02:45 07/07 02:10 Order name: EKG - Nurse/Tech; Complete Time: 02:45 07/07 04:00 Order name: Urine Dipstick--Ancillary (enter results); Complete Time: 05:51 tt3 07/07 02:10 Order name: IV Saline Lock; Complete Time: 02:45 07/07 02:10 Order name: Labs collected and sent; Complete Time: 02:45 07/07 02:10 Order name: O2 Per Protocol; Complete Time: 02:45 07/07 02:10 Order name: O2 Sat Monitoring; Complete Time: 02:45 tw4 Administered Medications: 07:36 Drug: Tylenol 650 mg Route: PO; jl7 09:52 Follow up: Response: No adverse reaction jl7 07:37 Drug: Zofran (Ondansetron) 4 mg Route: PO; jl7 09:51 Follow up: Response: No adverse reaction jl7 Disposition: 07/07/20 06:57 Discharged to Home. Impression: Anxiety disorder, unspecified. - Condition is Stable. - Discharge Instructions: Generalized Anxiety Disorder. - Medication Reconciliation Form, Thank You Letter, Antibiotic Education, Prescription Opioid Use form. - Follow up: Private Physician; When: Upon discharge from the Emergency Department; Reason: Recheck today's complaints, Continuance of care, Re-evaluation by your physician. - Problem is new. - Symptoms have improved. Signatures: Dispatcher [employer] EDMS Jesse Perez RN RN jb4 Naga Morales RN RN jl7 Aquilino Riggins MD MD tw4 Corrections: (The following items were deleted from the chart) 09:52 06:57 07/07/2020 06:57 Discharged to Home. Impression: Anxiety disorder, unspecified. jl7 Condition is Stable. Forms are Medication Reconciliation Form, Thank You Letter, Antibiotic Education, Prescription Opioid Use. Follow up: Private Physician; When: Upon discharge from the Emergency Department; Reason: Recheck today's complaints, Continuance of care, Re-evaluation by your physician. Problem is new. Symptoms have improved. tw4
--- NOTE | 2020-07-07 06:57 | ER ---
Nurse's Notes [facility] Name: Alessia Coombs Age: 89 yrs Sex: Female : 1930 Arrival Date: 07/07/2020 Time: 02:10 Bed 4 Private MD: Diagnosis: Anxiety disorder, unspecified Presentation: 07/07 02:10 Chief complaint: EMS states: Pt initially report feeling short of breath, was in no jb4 apparent distress upon EMS arrival. Pt reports pain all over and that she is going to . Wanted to come to the ER so she did not have to alone. 02:10 Coronavirus screen: Client denies travel out of the [place] in the last 14 days. At this jb4 time, the client does not indicate any symptoms associated with coronavirus-19. Ebola Screen: No symptoms or risks identified at this time. Initial Sepsis Screen: Does the patient meet any 2 criteria? HR > 90 bpm. Yes Does the patient have a suspected source of infection? No. Patient's initial sepsis screen is negative. Risk Assessment: Do you want to hurt yourself or someone else? Patient reports no desire to harm self or others. Onset of symptoms was July 07, 2020. Transition of care: patient was not received from another setting of care. 02:10 Method Of Arrival: EMS: [facility] jb4 02:10 Acuity: LAURYN 2 jb4 Historical: - Allergies: 02:10 Codeine; jb4 - Home Meds: 02:10 Abilify Oral [Active]; Amitriptyline 20 mg, two tabs at night Oral [Active]; citalopram jb4 40 mg tab 1 tab once daily [Active]; Clonazepam Oral as needed [Active]; Tylenol #3 Oral [Active]; - PMHx: 02:10 Anxiety; Chronic pain; Depression; Rib Fracture; jb4 - PSHx: 02:10 None; jb4 - Immunization history:: Adult Immunizations unknown. - Social history:: Smoking status: unknown. Screenin:10 Abuse screen: Denies threats or abuse. Nutritional screening: No deficits noted. jb4 Tuberculosis screening: No symptoms or risk factors identified. Fall Risk IV access (20 points). Total [place] Fall Scale indicates No Risk (0-24 pts). Assessment: 02:10 General: Appears in no apparent distress. uncomfortable, Behavior is cooperative, jb4 appropriate for age, anxious. Pain: Complains of pain in Generalized body pain. Pain does not radiate. Pain currently is 10 out of 10 on a pain scale. Neuro: Level of Consciousness is awake, alert, obeys commands, Oriented to person, place, time, situation. Cardiovascular: Patient's skin is warm and dry. Respiratory: Reports cough that is dry, hacking, persistent Airway is patent Respiratory effort is even, unlabored, Respiratory pattern is regular, symmetrical, Breath sounds are clear bilaterally. GI: : No signs and/or symptoms were reported regarding the genitourinary system. EENT: No signs and/or symptoms were reported regarding the EENT system. Derm: Skin is intact, Skin is pink, warm \\T\\ dry. Musculoskeletal: Circulation, motion, and sensation intact. Range of motion: intact in all extremities. 03:16 Reassessment: Patient appears in no apparent distress at this time. Patient and/or jb4 family updated on plan of care and expected duration. Pain level reassessed. Patient is alert, oriented x 3, equal unlabored respirations, skin warm/dry/pink. 04:02 Reassessment: Patient appears in no apparent distress at this time. Patient and/or jb4 family updated on plan of care and expected duration. Pain level reassessed. Patient is alert, oriented x 3, equal unlabored respirations, skin warm/dry/pink. Spoke with patients daughter about pending d/c, Daughter states " I cannot come to get her right now, I will when I can.". 05:17 Reassessment: Patient and/or family updated on plan of care and expected duration. Pain jb4 level reassessed. PT is resting in bed with eyes closed, respirations are even and unlabored with no s/s of pain or distress noted. 06:01 Reassessment: Patient appears in no apparent distress at this time. Patient and/or jb4 family updated on plan of care and expected duration. Pain level reassessed. Patient is alert, oriented x 3, equal unlabored respirations, skin warm/dry/pink. 06:57 Reassessment: Patient and/or family updated on plan of care and expected duration. Pain jb4 level reassessed. Pt is resting in bed with no s/s of pain or distress noted. Respirations are even and unlabored. d/c pending arrival of ride home. Daughter called and reports that pt's critical care physician Brittany, will be here within the hour to pick her up. 07:35 Reassessment: pt c/o pain all over and nausea, ERD notified, see MAR for orders. jl7 07:37 Reassessment: Awaiting transportation home. jl7 08:04 Reassessment: Attempted to call daughter, no answer. jl7 08:20 Reassessment: Called daughter, reports Brittany should have been here before 0800. jl7 09:12 Reassessment: Daughter called and reports Brittany's car broke down so her other 7 dry wall installations mechanic, Christina, will be here shortly. Vital Signs: 02:10 BP 161 / 105; Pulse 116; Resp 20; Temp 98.7(O); Pulse Ox 94% on R/A; Weight 36.29 kg jb4 (R); Height 5 ft. 3 in. (160.02 cm) (R); Pain 10/10; 03:00 BP 156 / 91; Pulse 89; Resp 22; Pulse Ox 95% on R/A; jb4 04:02 BP 177 / 97; Pulse 81; Resp 16; Pulse Ox 97% on R/A; jb4 05:00 BP 176 / 79; Pulse 89; Resp 24; Pulse Ox 96% on R/A; jb4 06:00 BP 157 / 97; Pulse 92; Resp 22; Pulse Ox 95% on R/A; jb4 07:35 BP 161 / 92; Pulse 91; Resp 17; Pulse Ox 94% ; jl7 02:10 Body Mass Index 14.17 (36.29 kg, 160.02 cm) jb4 ED Course: 02:10 Patient arrived in ED. tw4 02:10 Aquilino Riggins MD is Attending Physician. tw4 02:10 Arm band placed on right wrist. jb4 02:10 Patient has correct armband on for positive identification. Placed in gown. Bed in low jb4 position. Call light in reach. Side rails up X 1. environmental monitoring specialist on. Pulse ox on. NIBP on. Warm blanket given. 02:15 Jesse Perez, RN is Primary Nurse. jb4 02:20 Initial lab(s) drawn, by me, sent to lab. Inserted saline lock: 18 gauge in right jb4 antecubital area, using aseptic technique. Blood collected. 02:32 Triage completed. jb4 02:47 XRAY Chest (1 view) In Process Unspecified. EDMS 07:35 Primary Nurse role handed off by Jesse Perez, ILYA ratliff 07:43 Naga Morales, RN is Primary Nurse. jl7 09:52 No provider procedures requiring assistance completed. IV discontinued, intact, jl7 bleeding controlled, No redness/swelling at site. Pressure dressing applied. Administered Medications: 07:36 Drug: Tylenol 650 mg Route: PO; jl7 09:52 Follow up: Response: No adverse reaction jl7 07:37 Drug: Zofran (Ondansetron) 4 mg Route: PO; jl7 09:51 Follow up: Response: No adverse reaction jl7 Outcome: 06:57 Discharge ordered by . tw4 09:52 Discharged to home via wheelchair, with family. jl7 09:52 Condition: stable 09:52 Discharge instructions given to patient, family, Instructed on discharge instructions, follow up and referral plans. Demonstrated understanding of instructions, follow-up care. 09:52 Patient left the ED. jl7 Signatures: Dispatcher [employer] EDIN Bárbara Vazquez Jesse Perez, ILAY CARABALLO jb4 Naga Morales, ILYA CARABALLO jl7 Aquilino Riggins MD MD tw4
--- NOTE | 2020-07-07 07:39 | RAD REPORT ---
EXAM DESCRIPTION: Thaddeus Single View07/07/2020 2:47 am CLINICAL HISTORY: Shortness breath COMPARISON: 2019 FINDINGS: Right hemidiaphragm remains elevated The lungs appear clear of acute infiltrate. Heart is normal size. Old fractures noted. Osteoporosis
--- NOTE | 2020-07-07 07:43 | EKG ---
Test Date: 2020-07-07 Test Time: 02:36:24 Big Data Engineer: MEASUREMENT RESULTS: Intervals: Rate: 96 WV: 208 QRSD: 84 QT: 378 QTc: 477 [place]: P: 93 WV: 208 QRS: 67 T: 133 INTERPRETIVE STATEMENTS: Sinus rhythm with premature supraventricular complexes with occasional premature ventricular complexes Nonspecific ST and T wave abnormality Prolonged QT Abnormal ECG Compared to ECG 07/07/2020 02:23:58 Atrial premature complex(es) now present Ventricular premature complex(es) now present ST (T wave) deviation now present Prolonged QT interval now present Myocardial infarct finding no longer present Electronically Signed On 07-07-20 07:42:43 CDT by Desmond Madison
[2020-07-07] MEDS ORDERED: ONDANSETRON 4 MG (ODT) TAB ONE (07:45)
[2020-07-07] MEDS ORDERED: ACETAMINOPHEN 325 MG TABLET ONE (07:45)
[2020-07-07 10:02] VITALS: TEMP 98.7
[2020-07-07 10:24] VITALS: BP 161/92; O2SAT 94
== END 2020-07-07 09:52 | disposition home or self-care (01) ==
LOC: ER 02:05
DX: F41.9 Anxiety disorder, unspecified (principal); F41.8 Other specified anxiety disorders; G89.29 Other chronic pain; F03.90 Unspecified dementia, unspecified severity, without behavioral disturbance, psychotic disturbance, mood disturbance, and anxiety; Z88.5 Allergy status to narcotic agent
CPT/HCPCS: 36415; 71045; 80048; 80076; 81003; 83735; 83880; 84484; 85025; 85610; 93005; 99284

== ENCOUNTER 2020-07-08 14:02 | Emergency (ER) | payer OTHER ==
--- OUTSIDE RECORDS SUMMARY | 2020-07-08 14:19 | XMS REPORT | Clinical Summary ---
:1930 Author Organization [facility] Address [address] [place] [address] Care Team Providers Name Role Phone Cole [...] Not on file Results Not on fileafter 07/08/2019 Insurance Payer Benefit Plan / Group Subscriber ID Effective Dates Phone Address Type MEDICARE MEDICARE A B [id number] 1996-Present Medicare ([place]) [place] [address] Advance Directives For more information, please contact: [phone] Code Status Date Activated Date Inactivated Comments Full Code 08/26/2016 12:31 AM 08/26/2016 5:56 PM This code status was determined by: Patient
--- OUTSIDE RECORDS SUMMARY | 2020-07-08 14:19 | XMS REPORT | Continuity of Care Document ---
:1930 Author Organization [facility] Address [address] [place] [address] Care Team Providers Name Role Phone Margarita Jennings Primary Care Physician Jake ALCALA, S Attending Clinician Problems Condition Condition Condition Status Onset Resolution Last Treating Co mments Source Name Details Category Date Date Treatment Clinician Date ICH ICH Disease Active 2015-[facility] (intracere (intracere 2- Katiuska kes - bral bral 00:00: Medical hemorrhage hemorrhage 00 Ce nter ) ) Acute Acute Disease Active 2015-09 [facility] encephalop encephalop 2- kes - athy athy 00:00: Medical 00 Center Orthostati Orthostati Disease Active 2015-[address] [facility] 10-27 [facility] - hypotensio hypotensio 00:00: Co dical n n 00 Center Allergies, Adverse Reactions, Alerts This patient has no known allergies or adverse reactions. Social History Social Habit Start Date Stop Date Quantity Comments Source Sex Assigned At [facility] Alcohol intake 2016-08-26 2016-08-26 Current [facility] es - 00:00:00 00:00:00 non-drinker of Medical Ce nter alcohol (finding) Smoking Status Start Date Stop Date Source Never smoker [facility] Medications This patient has no known medications. Procedures This patient has no known procedures. Encounters Start End Encounter Admission Attending Care Care Encounter Source Date/Time Date/Time Type Type Clinicians Facility Department ID 2020-02-29 2020-03-12 Office MIRIAN Joseph [id number] 10:37:50 09:19:20 Visit [facility] [id number] Surgical [id number] Specialti [id number] [address] Results This patient has no known results.
[2020-07-08] MEDS ORDERED: NA CHLORIDE 0.9% 500 ML ONE (14:38)
[2020-07-08 15:22] LABS: BUN Blood Urea Nitrogen 22 mg/dL (7-18); Bicarbonate 28 mmol/L (21-32); Glucose Level 121 mg/dL (74-106); Potassium 3.2 mmol/L (3.5-5.1); Sodium Level 140 mmol/L (136-145)
--- NOTE | 2020-07-08 15:35 | RAD REPORT ---
EXAM DESCRIPTION: RAD - Chest Single View - 07/08/2020 3:00 pm CLINICAL HISTORY: AMS, shortness of breath COMPARISON: Portable July 07 TECHNIQUE: AP portable chest image was obtained 07/08/2020 3:00 pm . FINDINGS: Interstitial fibrotic lung changes are present similar to comparison. Mild edema or infilt rate can be masked by the severity of chronic disease. Pronounced elevation of the right hemidiaphrag m again noted. Heart and vasculature are normal. No measurable pleural effusion and no pneumothorax. No acute bony abnormality seen. No acute aortic findings suspected. IMPRESSION: No acute cardiopulmonary process. Chronic interstitial lung disease matches comparison.
[2020-07-08 16:05] LABS: Basophils % 0.3 % (0-1.3); Hematocrit 35.9 % (36.0-45.0); Lymphocytes % 14.4 % (15.3-44.8); RBC Red Blood Cell Count 3.69 M/uL (3.86-4.86)
--- NOTE | 2020-07-08 16:11 | RAD REPORT ---
EXAM DESCRIPTION: CT - Head Brain Wo Cont - 07/08/2020 3:49 pm CLINICAL HISTORY: AMS COMPARISON: Head angio dated 07/08/2020; Neck Angio dated 07/08/2020; Head C Spine Mpr Wo Con dated 08/25/2019 TECHNIQUE: Axial 5 mm thick images of the head were obtained without IV contrast. All CT scans are performed using dose optimization technique as appropriate and may include automated exposure control or mA/KV adjustment according to patient size. FINDINGS: No intracranial hemorrhage, mass, edema or shift of mid-line structures. No acute cortical based infarction identified. No cortical edema or sulcal effacement. Moderate severity atrophy and c hronic ischemic changes are present. Ventricles are in proportion to volume loss. Arterial and physio logic calcifications are present. Mastoid air cells and visualized portions of the paranasal sinuses are clear. No acute bony findings. IMPRESSION: Moderate severity atrophy and chronic ischemic change. No acute intracranial finding.
--- NOTE | 2020-07-08 16:35 | RAD REPORT ---
EXAM DESCRIPTION: CT - Head angio - 07/08/2020 3:48 pm CLINICAL HISTORY: AMS, CVA TECHNIQUE: During dynamic enhancement using nonionic IV contrast, axial 1 millimeter thick images of the head were obtained. Sagittal and axial reconstruction images were generated using MIP technique and reviewed. All CT scans are performed using dose optimization technique as appropriate and may include automated exposure control or mA/KV adjustment according to patient size. COMPARISON: CT head same date FINDINGS: No aneurysm or vascular malformation identified. Major venous sinuses are patent. No stenosis, named branch occlusion, vasculitis or other significant vascular finding identifiable. IMPRESSION: Negative CT angio head examination.
--- NOTE | 2020-07-08 16:37 | RAD REPORT ---
EXAM DESCRIPTION: CT - Neck Angio - 07/08/2020 3:48 pm CLINICAL HISTORY: AMS TECHNIQUE: During dynamic enhancement using nonionic IV contrast, axial 2 mm thick images of the nec k were obtained. Sagittal and axial reconstruction images were generated using MIP technique and revi ewed. All CT scans are performed using dose optimization technique as appropriate and may include automated exposure control or mA/KV adjustment according to patient size. COMPARISON: CT head same date, CT angio head same date FINDINGS: No aneurysm or vascular malformation identified. No carotid or vertebral dissection. Vertebral and great vessel origins are unremarkable. Proximal great vessels and vertebral arteries ar e quite tortuous. No stenosis, vasculitis or other significant carotid artery finding. No focal abnor mality of either vertebral artery. Basilar artery is normal. Atherosclerotic calcifications are mild for age with no significant luminal narrowing. IMPRESSION: Proximal carotid and vertebral arteries are quite tortuous. There is no dissection, chris nosis or significant degree of atherosclerotic change.
--- NOTE | 2020-07-08 16:47 | ER ---
Nurse's Notes [facility] Name: Alessia Coombs Age: 89 yrs Sex: Female : 1930 Arrival Date: 07/08/2020 Time: 14:13 Bed 2 Private MD: Diagnosis: Altered mental status, unspecified Presentation: 07/08 14:00 Chief complaint: EMS states: Pt. has Altered Mental Status that has gotten rb1 progressively worse since Tuesday, today the pt. is non-verbal. History of Anxiety, depression, psych issues. NKDA. BS 114, IV 18 G L AC. Pt. does have a couch. Coronavirus screen: At this time, the client does not indicate any symptoms associated with coronavirus-19. Ebola Screen: Patient denies travel to an Ebola-affected area in the 21 days before illness onset. Initial Sepsis Screen: Does the patient meet any 2 criteria? Yes. Risk Assessment: Do you want to hurt yourself or someone else? Patient reports no desire to harm self or others. Onset of symptoms was July 06, 2020. 14:00 Method Of Arrival: EMS: [facility] rb1 14:00 Acuity: LAURYN 3 rb1 Triage Assessment: 14:00 General: Appears in no apparent distress. comfortable, Behavior is calm, cooperative. rb1 Pain: Unable to use pain scale. Patient is disoriented. Neuro: Level of Consciousness is awake, Oriented to unable to obtain, pt. is non-verbal at this time. Cardiovascular: Patient's skin is warm and dry. Respiratory: Airway is patent Respiratory effort is even, unlabored, Respiratory pattern is regular, symmetrical. GI: No signs and/or symptoms were reported involving the gastrointestinal system. GI: Abdomen is non-distended. : No signs and/or symptoms were reported regarding the genitourinary system. Historical: - Allergies: 14:00 Codeine; rb1 - Home Meds: 14:00 Abilify Oral [Active]; Amitriptyline 20 mg, two tabs at night Oral [Active]; citalopram rb1 40 mg tab 1 tab once daily [Active]; Clonazepam Oral as needed [Active]; Tylenol #3 Oral [Active]; - PMHx: 14:00 Anxiety; Chronic pain; Depression; Rib Fracture; rb1 - PSHx: 14:00 None; rb1 - Immunization history:: Adult Immunizations up to date. - Social history:: Smoking status: Patient/guardian denies using. - Family history:: not pertinent. - Hospitalizations: : No recent hospitalization is reported. Screenin:00 Abuse screen: Denies threats or abuse. Nutritional screening: Daughter reports that the rb1 pt. does not want to eat or drink anything lately. Tuberculosis screening: No symptoms or risk factors identified. Fall Risk None identified. Assessment: 14:00 General: See triage assessment. rb1 15:00 Reassessment: Patient appears in no apparent distress at this time. No changes from rb1 previously documented assessment. 16:00 Reassessment: Patient appears in no apparent distress at this time. Patient and/or rb1 family updated on plan of care and expected duration. Pain level reassessed. 17:00 Reassessment: Patient appears in no apparent distress at this time. Dr. Saravia is at [facility] the pt. bedside. 18:00 Reassessment: Patient appears in no apparent distress at this time. Patient and/or rb1 family updated on plan of care and expected duration. Pain level reassessed. Pt. does not try to respond verbally. 18:25 Reassessment: Called report to ILYA Cruz at [facility]. Information rb1 from the [facility] was given. All questions asked and answered. Vital Signs: 14:00 BP 155 / 101; Pulse 92; Resp 28; Temp 98.6; Pulse Ox 99% ; Weight 36.29 kg; Height 5 rb1 ft. 3 in. (160.02 cm); 15:15 BP 148 / 71; Pulse 71; Resp 22; Pulse Ox 97% on R/A; rb1 16:30 BP 159 / 78; Pulse 94; Resp 20; Pulse Ox 97% ; rb1 17:22 BP 135 / 68; Pulse 91; Resp 20; Pulse Ox 98% ; rb1 18:20 BP 145 / 99; Pulse 79; Resp 19; Temp 98.8(O); Pulse Ox 98% ; rb1 14:00 Body Mass Index 14.17 (36.29 kg, 160.02 cm) rb1 Cristel Coma Score: 17:49 Eye Response: spontaneous(4). Verbal Response: none(1). Motor Response: localizes rn pain(5). Total: 10. NIH Stroke Scale Scores: 17:49 NIHSS Score: 22 harness mender Course: 14:00 Missed attempt(s): 22 gauge in right forearm. Bleeding controlled, band aid applied, rb1 catheter tip intact. 14:00 Maintain EMS IV. Dressing intact. Site clean \T\ dry. Gauge \T\ site: 18 G L AC. rb 1 14:00 Arm band placed on right wrist. rb1 14:00 Patient has correct armband on for positive identification. Bed in low position. Call rb1 light in reach. Side rails up X2. cardiac monitor technician on. Pulse ox on. NIBP on. Warm blanket given. 14:13 Patient arrived in ED. iw 14:13 Salvatore Oconnor MD is Attending Physician. rn 14:30 Eliana Carvalho, ILYA is Primary Nurse. rb1 15:00 XRAY Chest (1 view) In Process Unspecified. EDMS 15:01 Missed attempt(s): 22 gauge in right forearm. mt 15:03 Triage completed. rb1 15:12 phlebotomy notified of missed attempts, requested for blood draw. mt 15:48 CT Head Angio In Process Unspecified. EDMS 15:49 CT Head Brain wo Cont In Process Unspecified. EDMS 15:49 CT Neck Angio In Process Unspecified. EDMS 16:45 Juanito Saravia DO is Hospitalizing Provider. rn Administered Medications: 14:30 Drug: NS 0.9% 500 ml Route: IV; Rate: bolus; Site: left antecubital; rb1 15:06 Follow up: IV Status: Completed infusion rb1 Outcome: 16:46 Decision to Hospitalize by Provider. rn 17:59 ER care complete, transfer ordered by MD. rn 19:06 Patient left the ED. lp1 NIH Stroke Scale - NIH Stroke Score Date: 07/08/2020 Time: 17:49 Total Score = 22 1a. Level of Consciousness (LOC) - 1(Not Alert) 1b. Level of Consciousness (LOC) (Year \T\ Age) - 2(Neither) 1c. LOC Commands (Open \T\ Closes Eyes/Parking Line Painter) - 2(Neither) 2. Best Gaze (Lateral Gaze Paresis) - 0(Normal) 3. Visual Field Loss - 0(No visual loss) 4. Facial Palsy - 0(Normal) 5a. Left Arm: Motor (10-second hold) - 3(No effort against gravity) 5b. Right Arm: Motor (10-second hold) - 3(No effort against gravity) 6a. Left Leg: Motor (5-second hold - always test supine) - 3(No effort against gravity) 6b. Right Leg: Motor (5-second hold - always test supine) - 3(No effort against gravity) 7. Limb Ataxia (finger/nose \T\ heel/byrd - test with eyes open) - 0(Absent) 8. Sensory Loss (pinprick arms/legs/face) - 0(Normal) 9. Best Language: Aphasia (description/naming/reading) - 3(Mute, global aphasia) 10. Dysarthria (speech clarity - read or repeat words) - 2(Severe) 11. Extinction and Inattention (visual/tactile/auditory/spatial/personal) - 0(No abnormality) Initials: rn Signatures: Dispatcher [employer] EDMS Shadia Ryan, RN ILYA iw Salvatore Oconnor MD MD rn Pena, Laura, RN RN lp1 Eliana Carvalho RN RN rb1 Mi Fang co Corrections: (The following items were deleted from the chart) 15:27 14:00 BP 155 / 101; Pulse 92bpm; Resp 28bpm; Pulse Ox 99%; Temp 98.6F; rb1 rb1 18:30 16:00 Reassessment: Patient appears in no apparent distress at this time. rb1 Patient and/or family updated on plan of care and expected duration. Pain level reassessed. Patient is alert, oriented x 3, equal unlabored respirations, skin warm/dry/pink. rb1
--- NOTE | 2020-07-08 16:47 | EDPHYS ---
Physician Documentation [facility] Name: Alessia Coombs Age: 89 yrs Sex: Female : 1930 Arrival Date: 07/08/2020 Time: 14:13 Bed 2 Private MD: ED Physician Salvatore Oconnor HPI: 07/08 16:02 This 89 yrs old Female presents to ER via EMS with complaints of Altered rn Mental Status. 16:02 The patient presents with agitation, confusion, decreased mental status. Onset: The rn symptoms/episode began/occurred 5 day(s) ago. Possible causes: unknown. Current symptoms: In the emergency department the patient's symptoms are unchanged from the initial presentation. The patient has not experienced similar symptoms in the past. The patient has been recently seen at the [facility]. Family reports altered mental status, recently started on anti-depressant 1 week ago for anxiety and taken off benzo. Since then slowly worsening with decreased responsiveness, hallucinations, and confusion. No head injury. no fever. Seen here 2 days ago, reports negative workup, sent home, contacted her psychiatrist who recommended coming in for w/u and admission. . Historical: - Allergies: 14:00 Codeine; rb1 - Home Meds: 14:00 Abilify Oral [Active]; Amitriptyline 20 mg, two tabs at night Oral [Active]; citalopram rb1 40 mg tab 1 tab once daily [Active]; Clonazepam Oral as needed [Active]; Tylenol #3 Oral [Active]; - PMHx: 14:00 Anxiety; Chronic pain; Depression; Rib Fracture; rb1 - PSHx: 14:00 None; rb1 - Immunization history:: Adult Immunizations up to date. - Social history:: Smoking status: Patient/guardian denies using. - Family history:: not pertinent. - Hospitalizations: : No recent hospitalization is reported. ROS: 16:02 Unable to obtain ROS due to altered mental status. rn Exam: 16:02 Constitutional: Female, seems altered, sunken eyes Head/Face: Normocephalic, rn atraumatic. Eyes: sunken eyes, no nystagmus Cardiovascular: Regular rate and rhythm. No pulse deficits. Respiratory: Mild tachypnea, no retractions. Abdomen/GI: soft, non-tender MS/ Extremity: Pulses equal, no cyanosis. Neurovascular intact. Full, normal range of motion. Equal circumference. Neuro: Awake, follows some commands. Moves all 4 extremities, withdraws all extremities from painful stimuli, + coarse tremors in bilateral upper extremities. + inducible clonus bilateral feet. Not hyperreflexic. Vital Signs: 14:00 BP 155 / 101; Pulse 92; Resp 28; Temp 98.6; Pulse Ox 99% ; Weight 36.29 kg; Height 5 rb1 ft. 3 in. (160.02 cm); 15:15 BP 148 / 71; Pulse 71; Resp 22; Pulse Ox 97% on R/A; rb1 16:30 BP 159 / 78; Pulse 94; Resp 20; Pulse Ox 97% ; rb1 17:22 BP 135 / 68; Pulse 91; Resp 20; Pulse Ox 98% ; rb1 18:20 BP 145 / 99; Pulse 79; Resp 19; Temp 98.8(O); Pulse Ox 98% ; rb1 14:00 Body Mass Index 14.17 (36.29 kg, 160.02 cm) rb1 NIH Stroke Scale Scores: 17:49 NIHSS Score: 22 rn Cristel Coma Score: 17:49 Eye Response: spontaneous(4). Verbal Response: none(1). Motor Response: localizes rn pain(5). Total: 10. MDM: 14:13 Patient medically screened. rn 16:43 Differential Diagnosis: CVA, electrolyte abnormality, intracranial bleed, overdose, rn seizure, sepsis, TIA, UTI, volume depletion, serotonin syndrome. Data reviewed: vital signs, nurses notes, lab test result(s), EKG, radiologic studies, CT scan, and as a result, I will discharge patient. Counseling: I had a detailed discussion with the patient and/or guardian regarding: the historical points, exam findings, and any diagnostic results supporting the discharge/admit diagnosis, lab results, radiology results, the need for further work-up and treatment in the hospital. Admission orders: after a detailed discussion of the patient's condition and case, the admit orders are written by me. ED course: Pt with neg ct head/ct angio/ct neck angio, neg bloodwork, symptoms possibly consistent with serotonin syndrome vs severe psychiatric problems. Neg w/u 2 days ago and once again here, not at baseline, will admit to Dr. Saravia. Pt seechana Garcia for psychiatry.. 17:57 ED course: Dr Saravia evaluated patient, requests transfer to [place] because we do not rn have MRI capability here. Accepted for transfer to [facility]. . 07/08 14:28 Order name: CBC with Diff; Complete Time: 16:18 rn 07/08 14:28 Order name: Basic Metabolic Panel; Complete Time: 16:01 rn 07/08 14:29 Order name: Acetaminophen; Complete Time: 16:01 rn 07/08 14:29 Order name: Salicylate; Complete Time: 16:40 rn 07/08 14:28 Order name: IV Start; Complete Time: 14:31 rn 07/08 14:28 Order name: EKG; Complete Time: 14:29 rn 07/08 14:28 Order name: CT Head Brain wo Cont; Complete Time: 16:40 rn 07/08 14:28 Order name: CT Head Angio; Complete Time: 16:40 rn 07/08 14:28 Order name: CT Neck Angio; Complete Time: 16:40 rn 07/08 14:29 Order name: XRAY Chest (1 view); Complete Time: 16:01 rn 07/08 14:28 Order name: EKG - Nurse/Tech; Complete Time: 15:12 rn 07/08 14:54 Order name: Labs - recollect needed: recollect cbc; Complete Time: 15:36 bd Administered Medications: 14:30 Drug: NS 0.9% 500 ml Route: IV; Rate: bolus; Site: left antecubital; rb1 15:06 Follow up: IV Status: Completed infusion rb1 Disposition: 07/08/20 17:[address] [facility]. Diagnosis is Altered mental status, unspecified. - Reason for transfer: Higher level of care. - Accepting physician is Dr. Max. - Condition is Stable. - Problem is new. - Symptoms have improved. NIH Stroke Scale - NIH Stroke Score Date: 07/08/2020 Time: 17:49 Total Score = 22 1a. Level of Consciousness (LOC) - 1(Not Alert) 1b. Level of Consciousness (LOC) (Year \T\ Age) - 2(Neither) 1c. LOC Commands (Open \T\ Closes Eyes/Mailing Machine Helper) - 2(Neither) 2. Best Gaze (Lateral Gaze Paresis) - 0(Normal) 3. Visual Field Loss - 0(No visual loss) 4. Facial Palsy - 0(Normal) 5a. Left Arm: Motor (10-second hold) - 3(No effort against gravity) 5b. Right Arm: Motor (10-second hold) - 3(No effort against gravity) 6a. Left Leg: Motor (5-second hold - always test supine) - 3(No effort against gravity) 6b. Right Leg: Motor (5-second hold - always test supine) - 3(No effort against gravity) 7. Limb Ataxia (finger/nose \T\ heel/byrd - test with eyes open) - 0(Absent) 8. Sensory Loss (pinprick arms/legs/face) - 0(Normal) 9. Best Language: Aphasia (description/naming/reading) - 3(Mute, global aphasia) 10. Dysarthria (speech clarity - read or repeat words) - 2(Severe) 11. Extinction and Inattention (visual/tactile/auditory/spatial/personal) - 0(No abnormality) Initials: rn Signatures: Dispatcher [employer] EDMS Bárbara Vazquez Roman, MD MD rn Pena, Laura, RN RN lp1 Eliaan Carvalho, RN RN rb1 Corrections: (The following items were deleted from the chart) 16:47 16:02 Constitutional: Female, seems altered, sunken eyes Head/Face: rn Normocephalic, atraumatic. Eyes: sunken eyes, no nystagmus Cardiovascular: Regular rate and rhythm. No pulse deficits. Respiratory: Mild tachypnea, no retractions. Abdomen/GI: soft, non-tender MS/ Extremity: Pulses equal, no cyanosis. Neurovascular intact. Full, normal range of motion. Equal circumference. Neuro: Awake, follows some commands. Moves all 4 extremities, withdraws all extremities from painsul stimuli, + coarse tremors in bilateral upper extremities. rn 17:58 16:46 Hospitalization Ordered by Juanito Saravia DO for Inpatient Admission. rn Preliminary diagnosis is Altered mental status, unspecified; Possible serotonin syndrome; Dehydration. Bed requested for Telemetry/MedSurg (Inpatient). Status is Inpatient Admission. Condition is Stable. Problem is new. Symptoms are unchanged. rn 19:06 17:59 07/08/2020 17:59 Transfer ordered to [address] Diagnosis is Altered mental status, unspecified. Reason for transfer: Higher level of care. Accepting physician is Dr. Max. Condition is Stable. Problem is new. Symptoms have improved. rn
[2020-07-08 20:11] VITALS: O2SAT 98
[2020-07-08 20:16] VITALS: BP 145/99; TEMP 98.8
--- NOTE | 2020-07-10 07:08 | EKG ---
Test Date: 2020-07-08 Test Time: 15:08:45 Latexer: JEAN-PAUL MEASUREMENT RESULTS: Intervals: Rate: 70 MA: 210 QRSD: 66 QT: 386 QTc: 416 [place]: P: -3 MA: 210 QRS: -2 T: 29 INTERPRETIVE STATEMENTS: Sinus rhythm with 1st degree AV block Anteroseptal infarct, age undetermined Abnormal ECG Compared to ECG 07/07/2020 02:36:24 First degree AV block now present Myocardial infarct finding now present Atrial premature complex(es) no longer present Ventricular premature complex(es) no longer present ST (T wave) deviation no longer present Prolonged QT interval no longer present Electronically Signed On 07-10-20 07:04:14 CDT by Desmond Madison
== END 2020-07-08 19:06 | disposition short-term general hospital (02) ==
LOC: ER 14:02
DX: R41.82 Altered mental status, unspecified (principal); F41.8 Other specified anxiety disorders; G89.29 Other chronic pain; Z88.5 Allergy status to narcotic agent
CPT/HCPCS: 85025; 80048; 36415; 80329 ×2; 70450; 70496; 70498; 71045; Q9967; J7040; 93005; 96360; 99284